=== PATIENT | male | born 1935 | race Caucasian/White ===

== ENCOUNTER 2016-07-20 09:33 | Emergency (ER) | payer MEDICARE, BC ==
[2016-07-20] MEDS ORDERED: Morphine 4 MG/ML Syringe IVPUSH ONE ×2 (10:08→11:14)
[2016-07-20] MEDS ORDERED: Sodium Chloride 0.9% 10 ML Syringe FLUSH PRN (10:08)
[2016-07-20] MEDS ORDERED: Ondansetron 4 MG/2 ML SDV IVPUSH ONE (10:12)
--- NOTE | 2016-07-20 10:12 | EDM.PDOC ---
ED HPI GENERAL MEDICAL PROBLEM - General Chief Complaint: Abdominal Pain Stated Complaint: DIDN'T FEEL WELL Time Seen by Provider: 07/20/16 09:46 Source of Information: Reports: Patient, EMS, Old Records History Limitations: Reports: No Limitations - History of Present Illness INITIAL COMMENTS - FREE TEXT/NARRATIVE: Patient presented to the emergency room complaining of severe abdominal pain. Patient called the ambulance and requested transport to the hospital as she was not feeling well. The patient's abdomen is soft and nontender to palpation but he says the pain is deep inside. The patient now is requesting pain medication and is attempting to vomit. Onset: Today Onset Date: 07/20/16 Onset Time: 10:11 Duration: Hour(s):, Constant Location: Reports: Abdomen Quality: Reports: Ache Severity: Moderate Improves with: Reports: None Worsens with: Reports: None Associated Symptoms: Reports: Nausea/Vomiting Treatments CONSULTING HR PROFESSIONAL: Reports: Other Medication(s) Lower Abdomen Pain Score (Numeric/FACES): 9 - Related Data Allergies Allergy/AdvReac Type Severity Reaction Status Date / Time No Known Allergies Allergy Verified 07/20/16 09:39 Home Meds: Home Meds Diclofenac Sodium [Voltaren] 75 mg PO BID 10/15/13 [History] Furosemide [Furosemide] 10 mg PO DAILY 10/15/13 [History] Gabapentin [Gabapentin] 800 mg PO BID 10/15/13 [History] Gluc 2KCl/Chondr/Juan R Hy/Hy Ac [Glucosamine & Chondroitin Cap] 1 tab PO BID [History] Simvastatin [Zocor] 40 mg PO BEDTIME 10/15/13 [History] Aspirin [Adult Low Dose Aspirin EC] 81 mg PO DAILY 01/05/16 [History] Magnesium Oxide [Magnesium] 400 mg PO BID 01/05/16 [History] Melatonin 10 mg PO BEDTIME 01/05/16 [History] Multivitamin [Multivitamins] 1 tab PO DAILY 01/05/16 [History] Tamsulosin HCl [Flomax] 0.4 mg PO DAILY 01/05/16 [History] Zinc 50 mg PO DAILY 01/05/16 [History] traZODone HCl [Trazodone HCl] 50 mg PO BEDTIME 01/05/16 [History] Pantoprazole [Protonix] 40 mg PO BIDAC 04/17/16 [History] Past Medical History HEENT History: Reports: Cataract, Hard of Hearing, Impaired Vision Cardiovascular History: Reports: Heart Failure, High Cholesterol, Hypertension Respiratory History: Reports: SOB Other Respiratory History: SOB with exertion Genitourinary History: Reports: BPH Musculoskeletal History: Reports: Back Pain, Chronic, Osteoarthritis, Other ( See Below) Other Musculoskeletal History: spinal stnosis Neurological History: Reports: Other (See Below) Other Neuro History: hereditary and idiopathic neuropathy - Past Surgical History HEENT Surgical History: Reports: Cataract Surgery GI Surgical History: Reports: Other (See Below) Other GI Surgeries/Procedures: spleenectomy Neurological Surgical History: Reports: Lumbar Spine Other Neurological Surgeries/Procedures: 1993 & 2016 Musculoskeletal Surgical History: Reports: Knee Replacement Social & Family History - Tobacco Use Smoking Status *Q: Never Smoker Second Hand Smoke Exposure: No - Caffeine Use Caffeine Use: Reports: None - Alcohol Use Days Per Week of Alcohol Use: 0 - Recreational Drug Use Recreational Drug Use: No ED ROS GENERAL - Review of Systems Review Of Systems: See Below Constitutional: Reports: No Symptoms HEENT: Reports: No Symptoms Respiratory: Reports: No Symptoms Cardiovascular: Reports: No Symptoms Endocrine: Reports: Fatigue GI/Abdominal: Reports: Abdominal Pain, Nausea. Denies: Black Stool, Bloody Stool, Vomiting : Reports: No Symptoms Musculoskeletal: Reports: Back Pain, Joint Pain, Muscle Pain Skin: Reports: No Symptoms Neurological: Reports: No Symptoms Psychiatric: Reports: No Symptoms Hematologic/Lymphatic: Reports: No Symptoms Immunologic: Reports: No Symptoms ED EXAM, GI/ABD - Physical Exam Exam: See Below Exam Limited By: No Limitations General Appearance: Alert, WD/WN, Moderate Distress Eyes: Bilateral: Normal Appearance Ears: Normal External Exam, Hearing Grossly Normal Nose: Normal Inspection Throat/Mouth: Normal Inspection, Normal Lips, Normal Voice Head: Atraumatic, Normocephalic Neck: Normal Inspection Respiratory/Chest: No Respiratory Distress Cardiovascular: Normal Peripheral Pulses GI/Abdominal: Normal Bowel Sounds, Soft, No Organomegaly, No Distention, Tenderness, Other (Scar from splenectomy). No: Distention (Male) Exam: No Hernia Back Exam: Decreased Range of Motion Extremities: Normal Inspection Neurological: Alert, Oriented, Normal Cognition Psychiatric: Normal Affect, Normal Mood Skin Exam: Warm, Dry, Intact Course - Vital Signs Last Recorded V/S: Last Vital Signs Temp 98.4 F 07/20/16 09:38 Pulse 56 L 07/20/16 11:51 Resp 16 07/20/16 11:51 BP 134/71 07/20/16 11:51 Pulse Ox 95 07/20/16 11:51 - Orders/Labs/Meds Orders: Active Orders 24 hr Category Date Time Status EKG Documentation Completion [RC] ASDIRECTED Care 07/20/16 13:36 Ordered Peripheral IV Care [RC] . DIRECTED Care 07/20/16 10:08 Active Abdomen Pelvis wo Cont [CT] Stat Exams 07/20/16 11:14 Taken UA W/MICROSCOPIC [URIN] Stat Lab 07/20/16 10:07 Uncollected Sodium Chloride 0.9% [Normal Saline] 1,000 ml Med 07/20/16 10:15 Active IV ASDIRECTED Sodium Chloride 0.9% [Saline Flush] Med 07/20/16 10:08 Active 10 ml FLUSH ASDIRECTED PRN Peripheral IV Insertion Adult [OM.PC] Stat Oth 07/20/16 10:07 Ordered EKG 12 Lead [EK] Routine Ther 07/20/16 13:36 Ordered Medication Orders Sodium Chloride (Normal Saline) 1,000 mls @ 125 mls/hr IV ASDIRECTED RONN Last Admin: 07/20/16 10:17 Dose: 125 mls/hr Sodium Chloride (Saline Flush) 10 ml FLUSH ASDIRECTED PRN PRN Reason: Keep Vein Open Labs: Laboratory Tests 07/20/16 07/20/16 07/20/16 Range/Units 10:17 10:17 10:17 WBC 13.8 H (4.5-11.0) K/uL RBC 4.22 L (4.30-5.90) M/uL Hgb 9.7 L D (12.0-15.0) g/dL Hct 31.1 L (40.0-54.0) % MCV 74 L (80-98) fL MCH 23 L (27-31) pg MCHC 31 L (32-36) % Plt Count 447 H (150-400) K/uL Neut % (Auto) 88 H (36-66) % Lymph % (Auto) 5 L (24-44) % Cross % (Auto) 7 H (2-6) % Eos % (Auto) 0 L (2-4) % Baso % (Auto) 0 (0-1) % ESR 23 H (0-20) mm/hr Sodium 141 (140-148) mmol/L Potassium 4.2 (3.6-5.2) mmol/L Chloride 103 (100-108) mmol/L Carbon Dioxide 27 (21-32) mmol/L Anion Gap 10.7 (5.0-14.0) mmol/L BUN 24 H (7-18) mg/dL Creatinine 1.6 H (0.8-1.3) mg/dL Est Cr Clr Drug Dosing 36.21 mL/min Estimated GFR (MDRD) 42 L (>60) Glucose 137 H (74-106) mg/dL Lactic Acid (0.4-2.0) mmol/L Calcium 8.3 L (8.5-10.1) mg/dL Total Bilirubin 0.6 (0.2-1.0) mg/dL AST 18 (15-37) U/L ALT 17 (12-78) U/L Alkaline Phosphatase 62 (46-116) U/L C-Reactive Protein (0.0-0.3) mg/dL Total Protein 7.6 (6.4-8.2) g/dL Albumin 3.3 L (3.4-5.0) g/dL Globulin 4.3 H (2.3-3.5) g/dL Albumin/Globulin Ratio 0.8 L (1.2-2.2) 07/20/16 07/20/16 Range/Units 10:17 10:17 WBC (4.5-11.0) K/uL RBC (4.30-5.90) M/uL Hgb (12.0-15.0) g/dL Hct (40.0-54.0) % MCV (80-98) fL MCH (27-31) pg MCHC (32-36) % Plt Count (150-400) K/uL Neut % (Auto) (36-66) % Lymph % (Auto) (24-44) % Cross % (Auto) (2-6) % Eos % (Auto) (2-4) % Baso % (Auto) (0-1) % ESR (0-20) mm/hr Sodium (140-148) mmol/L Potassium (3.6-5.2) mmol/L Chloride (100-108) mmol/L Carbon Dioxide (21-32) mmol/L Anion Gap (5.0-14.0) mmol/L BUN (7-18) mg/dL Creatinine (0.8-1.3) mg/dL Est Cr Clr Drug Dosing mL/min Estimated GFR (MDRD) (>60) Glucose (74-106) mg/dL Lactic Acid 1.1 (0.4-2.0) mmol/L Calcium (8.5-10.1) mg/dL Total Bilirubin (0.2-1.0) mg/dL AST (15-37) U/L ALT (12-78) U/L Alkaline Phosphatase (46-116) U/L C-Reactive Protein 0.18 (0.0-0.3) mg/dL Total Protein (6.4-8.2) g/dL Albumin (3.4-5.0) g/dL Globulin (2.3-3.5) g/dL Albumin/Globulin Ratio (1.2-2.2) Meds: Medications Generic Name Dose Route Start Last Admin Trade Name Freq PRN Reason Stop Dose Admin Sodium Chloride 1,000 mls @ 125 mls/hr 07/20/16 10:15 07/20/16 10:17 Normal Saline IV 125 mls/hr ASDIRECTED RONN Administration Sodium Chloride 10 ml 07/20/16 10:08 Saline Flush FLUSH ASDIRECTED PRN Keep Vein Open Discontinued Medications Generic Name Dose Route Start Last Admin Trade Name Freq PRN Reason Stop Dose Admin Morphine Sulfate 4 mg 07/20/16 10:08 07/20/16 10:20 Morphine IVPUSH 07/20/16 10:09 4 mg ONETIME ONE Administration Morphine Sulfate 4 mg 07/20/16 11:14 07/20/16 11:27 Morphine IVPUSH 07/20/16 11:15 4 mg ONETIME ONE Administration Ondansetron HCl 4 mg 07/20/16 10:12 07/20/16 10:18 Zofran IVPUSH 07/20/16 10:13 4 mg ONETIME ONE Administration - Radiology Interpretation Free Text/Narrative:: Final Report Patient: TOBI ENG Facility: [facility] Site . Site : 1935 Study: CT Abdomen/Pelvis -07/20/2016 11:56:17 AM Ordering Physician: Tej Tabor [phone] Final Report: HISTORY: Abdominal pain, elevated creatinine. Technique: CT abdomen and pelvis without contrast. Comparison: None. Findings: Abdomen: A few subcentimeter low-attenuation lesions in the liver. Gallbladder is distended but otherwise unremarkable. No radiopaque gallstones. Post splenectomy. Few splenules in the left upper quadrant. Pancreas is unremarkable. Adrenal glands are unremarkable. No renal or ureteral calculi. Bilateral renal hypodensities, likely cysts. Distended fluid-filled distal small bowel to the terminal ileum. The cecum and ascending colon are likewise distended and fluid-filled to the level of a approximately 3 cm segment of in circumferential wall thickening/annular mass ( axial series 3 images 55-59). Colon is mostly decompressed distal to this point. Colonic diverticulosis. Few surgical clips in the right lower quadrant. Trace free fluid in the right paracolic gutter. No fluid collection. No free intraperitoneal gas. No lymphadenopathy. Atherosclerosis. No abdominal aortic aneurysm. Pelvis: Prostate is enlarged. No lymphadenopathy. Musculoskeletal: Generalized osteopenia. Degenerative changes in the spine. Bilateral sacroiliac joint degenerative changes. Pubic symphysis degenerative changes. Bilateral hip joint degenerative changes. Lower chest: Bibasilar atelectasis. Heart is enlarged. Coronary artery calcifications. Impression: 1. Approximately 3 cm segment circumferential wall thickening/annular mass in the ascending colon with distended, fluid-filled upstream ascending colon, cecum , and distal small bowel. Finding is suspicious for malignancy. Recommend correlation with colonoscopy. 2. Small amount of free fluid in the abdomen. No fluid collection or free intraperitoneal gas. 3. Distended but otherwise unremarkable gallbladder. 4. Post splenectomy. Communicated with Dr. Leander Burnham on 07/20/16 at 1245 hours. Please note that all CT scans at this facility use dose modulation, iterative reconstruction, and/or weight-based dosing when appropriate to reduce radiation dose to as low as reasonably achievable. Dictated by Joseph Schmitt MD @ Jul 20 2016 12:47PM (Electronic Signature) Top of Form 1 Bottom of Form 1 - Re-Assessments/Exams Free Text/Narrative Re-Assessment/Exam: 07/20/16 13:37 Patient has significant abdominal pain requesting pain management. Morphine was used IV. He also nausea and that was treated with Zofran. The CT scan report showed the abnormality in the ascending colon. Dr. Barnes was consulted. 07/20/16 13:38 Dr. Cesar Delcid is out of the home for the weekend Free Text/Narrative Re-Assessment/Exam: 07/20/16 13:43 Patient was seen by Dr. Barnes. Dr. Barnes's plan is to discharge the patient home with a 2 day bowel prep. Colonoscopy on Friday. The patient can return to the emergency room if there is unbearable symptomatology at home. Departure - Departure Time of Disposition: 13:44 Disposition: Home, Self-Care 01 Condition: fair Clinical Impression: Abdominal pain, Mass of colon - Discharge Information Forms: ED Department Discharge Additional Instructions: Dr. Barnes will do a colonoscopy on Friday. A 2 day bowel prep has been planned Patient is discharged home. Reevaluation is indicated if the pain becomes significant or other problems develop. - Problem List & Annotations (1) Abdominal pain SNOMED Code(s): 05436424 Code(s): R10.9 - UNSPECIFIED ABDOMINAL PAIN Status: Acute Priority: Medium Current Visit: Yes Qualifiers: Abdominal location: generalized Qualified Code(s): R10.84 - Generalized abdominal pain - Problem List Review Problem List Initiated/Reviewed/Updated: Yes - My Orders Last 24 Hours: My Active Orders 07/20/16 10:07 UA W/MICROSCOPIC [URIN] Stat Peripheral IV Insertion Adult [OM.PC] Stat 07/20/16 10:08 Peripheral IV Care [RC] . DIRECTED Sodium Chloride 0.9% [Saline Flush] 10 ml FLUSH ASDIRECTED PRN 07/20/16 10:15 Sodium Chloride 0.9% [Normal Saline] 1,000 ml IV ASDIRECTED 07/20/16 11:14 Abdomen Pelvis wo Cont [CT] Stat 07/20/16 13:36 EKG Documentation Completion [RC] ASDIRECTED EKG 12 Lead [EK] Routine - Assessment/Plan Last 24 Hours: My Active Orders 07/20/16 10:07 UA W/MICROSCOPIC [URIN] Stat Peripheral IV Insertion Adult [OM.PC] Stat 07/20/16 10:08 Peripheral IV Care [RC] . DIRECTED Sodium Chloride 0.9% [Saline Flush] 10 ml FLUSH ASDIRECTED PRN 07/20/16 10:15 Sodium Chloride 0.9% [Normal Saline] 1,000 ml IV ASDIRECTED 07/20/16 11:14 Abdomen Pelvis wo Cont [CT] Stat 07/20/16 13:36 EKG Documentation Completion [RC] ASDIRECTED EKG 12 Lead [EK] Routine
[2016-07-20] MEDS ORDERED: Sodium Chloride 0.9% 1,000 ML IV SCH (10:15)
[2016-07-20 13:51] VITALS: BP 105/38
--- NOTE | 2016-07-23 08:20 | CONS ---
DATE OF SERVICE: 07/20/2016 REFERRING PHYSICIAN: CONSULTING PHYSICIAN: Wilfred Barnes MD REASON FOR CONSULTATION: Abdominal pain. HISTORY OF PRESENT ILLNESS: This 81-year-old male with an acute on chronic history of abdominal pain. This is a new problem for him with respect to he was presented to the emergency room, however discussion with the patient this has been present for quite some time. The patient has not had a recent colonoscopy. He has no GI bleeding. He is still having bowel movements in fact, a large one in the last couple of hours. PAST MEDICAL HISTORY: 1. Multiple back surgeries. 2. Back pain. PAST SURGICAL HISTORY: 1. Back pain or back surgeries as described above. 2. 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 SOCIAL HISTORY: He is not a smoker. He does live at home by himself. FAMILY HISTORY: Noncontributory. REVIEW OF SYSTEMS: GENERAL: The patient is resting, is appropriate for his condition. HEENT: No symptoms. CARDIOVASCULAR: No history of myocardial infarction. RESPIRATORY: No shortness of breath. The patient states he can walk without difficulty. NEUROLOGIC: No symptoms. PSYCHIATRY: No symptoms. The remainder review of systems was reviewed and is negative. PHYSICAL EXAMINATION: VITAL SIGNS: Stable. HEENT: Pupils are equal. NECK: Supple. LUNGS: Clear to auscultation bilaterally. ABDOMEN: Bowel sounds positive. No pain with palpation. No rebound. No guarding. No distention. IMAGING: I did review the CT scan, which suggests a possible malignancy. LABORATORY RESULTS: Currently slightly elevated, and his hemoglobin is 9.7 which is probably chronic. ASSESSMENT AND PLAN: The patient is requiring a colonoscopy. We've placed the patient on prep and performed the next step in 24 to 48 hours. We discussed risks, benefits, alternatives, and limitations of the colonoscopy, also the fact discussed that he is 81 and he is at a higher cardiovascular risk. However, he has good physical health with respect to his cardiovascular status and low on risk factor for his age. We also discussed the risks of colonoscopy and not having including infection, bleeding, and perforation. The patient understands these risks and wishes to proceed. He was scheduled for the aforementioned colonoscopy. Wilfred Barnes MD /[id number] CC: Leander Burnham MD, [place], [place]
== END 2016-07-20 14:10 | disposition home or self-care (01) ==
LOC: JP.ED 09:34
DX: K63.9 Disease of intestine, unspecified (principal); R10.30 Lower abdominal pain, unspecified; I50.9 Heart failure, unspecified; I10 Essential (primary) hypertension; E78.00 Pure hypercholesterolemia, unspecified; Z98.49 Cataract extraction status, unspecified eye; Z90.81 Acquired absence of spleen; Z96.659 Presence of unspecified artificial knee joint; Z79.82 Long term (current) use of aspirin; Z79.899 Other long term (current) drug therapy
CPT/HCPCS: 36415; 74176; 80053; 83605; 85025; 85651; 86140; 93005; 96361; 96374; 96375; 96376; 99285; J2270; J2405; J7040; 93010

== ENCOUNTER 2016-07-22 07:03 | Day surgery (SDC) | payer MEDICARE, BC | END 2016-07-22 07:50 | disposition home or self-care (01) | LOC: JP.SDS 07:03 | PROVIDERS: ATTEND Surgery | DX: Z12.11 Encounter for screening for malignant neoplasm of colon (principal); Z53.8 Procedure and treatment not carried out for other reasons ==

== ENCOUNTER 2016-07-25 02:52 | Emergency (ER) | payer MEDICARE, BC ==
[2016-07-25] MEDS ORDERED: HYDROmorphone 1 MG/ML Syringe IVPUSH ONE (03:32)
[2016-07-25] MEDS ORDERED: Ondansetron 4 MG/2 ML SDV IVPUSH ONE (03:32)
[2016-07-25] MEDS ORDERED: Sodium Chloride 0.9% 1,000 ML IV SCH (03:45)
[2016-07-25 06:29] VITALS: BP 114/67
--- NOTE | 2016-07-25 06:38 | EDM.PDOC ---
ED HPI GENERAL MEDICAL PROBLEM - General Chief Complaint: Abdominal Pain Stated Complaint: STOMACH PAINS/VOMITING Time Seen by Provider: 07/25/16 03:31 Source of Information: Reports: Patient History Limitations: Reports: No Limitations - History of Present Illness INITIAL COMMENTS - FREE TEXT/NARRATIVE: History of present illness: [This 81-year-old male scheduled for a colonoscopy next week as a result of the CT scan that is showing a lesion in his ascending colon is suspicious for CA. 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 He states he has one but it doesn't work well for him. 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 He's had no fevers or chills cough cold systems chest pain or shortness of breath. He's had one episode of vomiting prior to coming in.] Review of systems: As per history of present illness and below otherwise all systems reviewed and negative. Past medical history: As per history of present illness and as reviewed below otherwise noncontributory. Surgical history: As per history of present illness and as reviewed below otherwise noncontributory. Social history: No reported history of drug or alcohol abuse. Family history: As per history of present illness and as reviewed below otherwise noncontributory. Physical exam: HEENT: Atraumatic, normocephalic, pupils reactive, negative for conjunctival pallor or scleral icterus, mucous membranes moist, throat clear, neck supple, nontender, trachea midline. Lungs: Clear to auscultation Heart: S1S2, regular Abdomen: Soft, nondistended, with minor tenderness to palpation across the lower abdomen Extremities: Atraumatic, negative for cords or calf pain. Neurovascular unremarkable. Neuro: Awake, alert, oriented. Cranial nerves II through XII unremarkable. Cerebellum unremarkable. Motor and sensory unremarkable throughout. Exam nonfocal. Diagnostics: [CBC showing oh elevated white count of 14,000 CMP was also done and had some minor abnormalities.] Therapeutics: [All of the ER he received IV fluids and Dilaudid 1 mg IV as well as Zofran. He was observed for over 3 hours and felt much better and was willing to try to go home. We don't have a bed available in the hospital so I think this would be a reasonable thing to try. We will provide him with antibiotics due to his elevated white count in the form of Cipro 500 mg twice a day. And also [place] 5/ 325 one by mouth every 4 hours when necessary pain #20.] Impression: [Abdominal pain and nausea] Plan: [He is strongly encouraged to return to the ER if this is not working out and if he does I would recommend consideration of admission.] Definitive disposition and diagnosis as appropriate pending reevaluation and review of above. Abdominal Pain Score (Numeric/FACES): 10 - Related Data Allergies Allergy/AdvReac Type Severity Reaction Status Date / Time No Known Allergies Allergy Verified 07/20/16 09:39 Home Meds: Home Meds Diclofenac Sodium [Voltaren] 75 mg PO BID 10/15/13 [History] Furosemide [Furosemide] 10 mg PO DAILY 10/15/13 [History] Gabapentin [Gabapentin] 800 mg PO BID 10/15/13 [History] Gluc 2KCl/Chondr/Juan R Hy/Hy Ac [Glucosamine & Chondroitin Cap] 1 tab PO BID [History] Simvastatin [Zocor] 40 mg PO BEDTIME 10/15/13 [History] Aspirin [Adult Low Dose Aspirin EC] 81 mg PO DAILY 01/05/16 [History] Magnesium Oxide [Magnesium] 400 mg PO BID 01/05/16 [History] Melatonin 10 mg PO BEDTIME 01/05/16 [History] Multivitamin [Multivitamins] 1 tab PO DAILY 01/05/16 [History] Tamsulosin HCl [Flomax] 0.4 mg PO DAILY 01/05/16 [History] Zinc 50 mg PO DAILY 01/05/16 [History] traZODone HCl [Trazodone HCl] 50 mg PO BEDTIME 01/05/16 [History] Pantoprazole [Protonix] 40 mg PO BIDAC 04/17/16 [History] Past Medical History HEENT History: Reports: Cataract, Hard of Hearing, Impaired Vision Cardiovascular History: Reports: Heart Failure, High Cholesterol, Hypertension Respiratory History: Reports: SOB Other Respiratory History: SOB with exertion Genitourinary History: Reports: BPH Musculoskeletal History: Reports: Back Pain, Chronic, Osteoarthritis, Other ( See Below) Other Musculoskeletal History: spinal stnosis Neurological History: Reports: Other (See Below) Other Neuro History: hereditary and idiopathic neuropathy - Past Surgical History HEENT Surgical History: Reports: Cataract Surgery GI Surgical History: Reports: Other (See Below) Other GI Surgeries/Procedures: spleenectomy Neurological Surgical History: Reports: Lumbar Spine Other Neurological Surgeries/Procedures: 1994 & 2016 Musculoskeletal Surgical History: Reports: Knee Replacement Social & Family History - Tobacco Use Smoking Status *Q: Never Smoker Second Hand Smoke Exposure: No - Caffeine Use Caffeine Use: Reports: Coffee - Alcohol Use Days Per Week of Alcohol Use: 0 - Recreational Drug Use Recreational Drug Use: No ED ROS GENERAL - Review of Systems Review Of Systems: ROS reveals no pertinent complaints other than HPI. ED EXAM, GI/ABD - Physical Exam Exam: See Below Course - Vital Signs Last Recorded V/S: Last Vital Signs Temp 35.3 C 07/25/16 03:05 Pulse 58 L 07/25/16 06:29 Resp 16 07/25/16 06:29 BP 114/67 07/25/16 06:29 Pulse Ox 94 L 07/25/16 06:29 - Orders/Labs/Meds Orders: Active Orders 24 hr Category Date Time Status Sodium Chloride 0.9% [Normal Saline] 1,000 ml Med 07/25/16 03:45 Active IV ASDIRECTED Medication Orders Sodium Chloride (Normal Saline) 1,000 mls @ 150 mls/hr IV ASDIRECTED RONN Last Admin: 07/25/16 03:46 Dose: 150 mls/hr Labs: Laboratory Tests 07/25/16 07/25/16 Range/Units 03:46 03:46 WBC 14.8 H (4.5-11.0) K/uL RBC 4.64 (4.30-5.90) M/uL Hgb 10.6 L (12.0-15.0) g/dL Hct 33.5 L (40.0-54.0) % MCV 72 L (80-98) fL MCH 23 L (27-31) pg MCHC 32 (32-36) % Plt Count 470 H (150-400) K/uL Neut % (Auto) 85 H (36-66) % Lymph % (Auto) 5 L (24-44) % [place] % (Auto) 9 H (2-6) % Eos % (Auto) 1 L (2-4) % Baso % (Auto) 0 (0-1) % Sodium 141 (140-148) mmol/L Potassium 3.8 (3.6-5.2) mmol/L Chloride 102 (100-108) mmol/L Carbon Dioxide 27 (21-32) mmol/L Anion Gap 15.8 H (5.0-14.0) mmol/L BUN 23 H (7-18) mg/dL Creatinine 1.5 H (0.8-1.3) mg/dL Est Cr Clr Drug Dosing TNP Estimated GFR (MDRD) 45 L (>60) Glucose 141 H (74-106) mg/dL Calcium 8.9 (8.5-10.1) mg/dL Total Bilirubin 0.7 (0.2-1.0) mg/dL AST 26 (15-37) U/L ALT 21 (12-78) U/L Alkaline Phosphatase 64 (46-116) U/L Total Protein 8.1 (6.4-8.2) g/dL Albumin 3.6 (3.4-5.0) g/dL Globulin 4.5 H (2.3-3.5) g/dL Albumin/Globulin Ratio 0.8 L (1.2-2.2) Lipase 393 (73-393) U/L Meds: Medications Generic Name Dose Route Start Last Admin Trade Name Freq PRN Reason Stop Dose Admin Sodium Chloride 1,000 mls @ 150 mls/hr 07/25/16 03:45 07/25/16 03:46 Normal Saline IV 150 mls/hr ASDIRECTED RONN Administration Discontinued Medications Generic Name Dose Route Start Last Admin Trade Name Freq PRN Reason Stop Dose Admin Hydromorphone HCl 1 mg 07/25/16 03:32 07/25/16 03:56 Dilaudid IVPUSH 07/25/16 03:33 1 mg ONETIME ONE Administration Ondansetron HCl 4 mg 07/25/16 03:32 07/25/16 03:55 Zofran IVPUSH 07/25/16 03:33 4 mg ONETIME ONE Administration Departure - Departure Time of Disposition: 06:37 Disposition: Home, Self-Care 01 Condition: good Clinical Impression: Abdominal pain Qualifiers: Abdominal location: lower abdomen, unspecified Qualified Code(s): R10.30 - Lower abdominal pain, unspecified - Discharge Information Forms: ED Department Discharge Additional Instructions: I certainly hope that this works out for you. If we are providing you with some antibiotics because her white count was slightly elevated. Please be sure to return to the ER if things are not working out for you and you were experiencing pain that is not controlled with the antibiotics or nausea and vomiting or weakness or any other concerns. If you do return it could be that we would need to admit her to the hospital. - My Orders Last 24 Hours: My Active Orders 07/25/16 03:45 Sodium Chloride 0.9% [Normal Saline] 1,000 ml IV ASDIRECTED - Assessment/Plan Last 24 Hours: My Active Orders 07/25/16 03:45 Sodium Chloride 0.9% [Normal Saline] 1,000 ml IV ASDIRECTED
== END 2016-07-25 07:04 | disposition home or self-care (01) ==
LOC: JP.ED 02:52
DX: R10.30 Lower abdominal pain, unspecified (principal); R11.0 Nausea; I11.0 Hypertensive heart disease with heart failure; E78.00 Pure hypercholesterolemia, unspecified; G89.29 Other chronic pain; M54.9 Dorsalgia, unspecified; M19.90 Unspecified osteoarthritis, unspecified site; Z98.49 Cataract extraction status, unspecified eye; Z90.81 Acquired absence of spleen; Z96.659 Presence of unspecified artificial knee joint; Z98.890 Other specified postprocedural states; Z79.82 Long term (current) use of aspirin; Z79.899 Other long term (current) drug therapy
CPT/HCPCS: 36415; 80053; 83690; 85025; 96361; 96374; 96375; 99284; J1170; J2405; J7040

== ENCOUNTER 2016-07-30 02:50 | Inpatient (IN) | payer MEDICARE, BC ==
[2016-07-30] MEDS ORDERED: Lactated Ringers 1,000 ML IV ONE (03:47)
[2016-07-30] MEDS ORDERED: Sodium Chloride 0.9% 10 ML Syringe FLUSH PRN ×2 (03:48→08:10)
[2016-07-30] MEDS ORDERED: fentaNYL 100 MCG/2 ML SDV IVPUSH ONE ×2 (03:48→08:38)
[2016-07-30] MEDS ORDERED: LORazepam 2 MG/ML MDV IVPUSH ONE (03:48)
--- NOTE | 2016-07-30 03:58 | EDM.PDOC ---
ED HPI GENERAL MEDICAL PROBLEM - General Chief Complaint: Gastrointestinal Problem Stated Complaint: WEAKNESS Time Seen by Provider: 07/30/16 03:29 Source of Information: Reports: Patient, Old Records, RN Notes Reviewed History Limitations: Reports: No Limitations - History of Present Illness INITIAL COMMENTS - FREE TEXT/NARRATIVE: 81-year-old gentleman presents to emergency department today complaint abdominal pain, he has been in the emergency department 2 times in the last 10 days for the same complaint. Initial workup on presentation shows a thickened area the ascending colon concern for malignancy, he was set up for colonoscopy unfortunately could not complete the prep with the MiraLAX and Gatorade and was switched to the magnesium citrate prep. He states the pain medication provided for him does not help and that he has not been able to sleep and he is very anxious. This is a similar complaint to last visit Treatments END MAKER: Reports: Other (see below) Other Treatments END MAKER: Mag Citrate bowel prep - Related Data Allergies Allergy/AdvReac Type Severity Reaction Status Date / Time No Known Allergies Allergy Verified 07/29/16 11:36 Home Meds: Home Meds Diclofenac Sodium [Voltaren] 75 mg PO BID 10/15/13 [History] Furosemide [Furosemide] 10 mg PO DAILY 10/15/13 [History] Gabapentin [Gabapentin] 800 mg PO BID 10/15/13 [History] Gluc 2KCl/Chondr/Juan R Hy/Hy Ac [Glucosamine & Chondroitin Cap] 1 tab PO BID [History] Simvastatin [Zocor] 40 mg PO BEDTIME 10/15/13 [History] Aspirin [Adult Low Dose Aspirin EC] 81 mg PO DAILY 01/05/16 [History] Magnesium Oxide [Magnesium] 400 mg PO BID 01/05/16 [History] Melatonin 10 mg PO BEDTIME 01/05/16 [History] Multivitamin [Multivitamins] 1 tab PO DAILY 01/05/16 [History] Tamsulosin HCl [Flomax] 0.4 mg PO DAILY 01/05/16 [History] Zinc 50 mg PO DAILY 01/05/16 [History] traZODone HCl [Trazodone HCl] 50 mg PO BEDTIME 01/05/16 [History] Pantoprazole [Protonix] 40 mg PO BIDAC 04/17/16 [History] Past Medical History HEENT History: Reports: Cataract, Hard of Hearing, Impaired Vision Cardiovascular History: Reports: Heart Failure, High Cholesterol, Hypertension Respiratory History: Reports: SOB Other Respiratory History: SOB with exertion Gastrointestinal History: Reports: Other (See Below) Other Gastrointestinal History: Recent CT of abd/pelvis on 07/20/16 showed lesion in accending colon Genitourinary History: Reports: BPH Musculoskeletal History: Reports: Back Pain, Chronic, Osteoarthritis, Other ( See Below) Other Musculoskeletal History: spinal stnosis Neurological History: Reports: Other (See Below) Other Neuro History: hereditary and idiopathic neuropathy - Infectious Disease History Infectious Disease History: Reports: Chicken Pox, Measles - Past Surgical History HEENT Surgical History: Reports: Cataract Surgery GI Surgical History: Reports: Other (See Below) Other GI Surgeries/Procedures: spleenectomy Neurological Surgical History: Reports: Lumbar Spine Other Neurological Surgeries/Procedures: 1993 & 2015 Musculoskeletal Surgical History: Reports: Knee Replacement Social & Family History - Tobacco Use Smoking Status *Q: Never Smoker Second Hand Smoke Exposure: No - Caffeine Use Caffeine Use: Reports: Coffee - Alcohol Use Days Per Week of Alcohol Use: 0 - Recreational Drug Use Recreational Drug Use: No ED ROS GENERAL - Review of Systems Review Of Systems: See Below Constitutional: Reports: No Symptoms HEENT: Reports: No Symptoms Respiratory: Reports: No Symptoms Cardiovascular: Reports: No Symptoms GI/Abdominal: Reports: Abdominal Pain. Denies: Constipation, Diarrhea, Nausea, Vomiting : Reports: No Symptoms Musculoskeletal: Reports: No Symptoms ED EXAM, GI/ABD - Physical Exam Exam: See Below Exam Limited By: No Limitations General Appearance: Alert, WD/WN, No Apparent Distress Respiratory/Chest: No Respiratory Distress, Lungs Clear, Normal Breath Sounds, No Accessory Muscle Use Cardiovascular: Regular Rate, Rhythm, No Murmur GI/Abdominal: Soft, Non-Tender, No Organomegaly, No Distention Psychiatric: Anxious Course - Vital Signs Last Recorded V/S: Last Vital Signs Temp 97.6 F 07/30/16 02:59 Pulse 89 07/30/16 02:59 Resp 16 07/30/16 02:59 BP 129/81 07/30/16 02:59 Pulse Ox 98 07/30/16 02:59 - Orders/Labs/Meds Orders: Active Orders 24 hr Category Date Time Status Peripheral IV Care [RC] . DIRECTED Care 07/30/16 03:48 Active Sodium Chloride 0.9% [Saline Flush] Med 07/30/16 03:48 Active 10 ml FLUSH ASDIRECTED PRN Peripheral IV Insertion Adult [OM.PC] Urgent Oth 07/30/16 03:47 Ordered Medication Orders Sodium Chloride (Saline Flush) 10 ml FLUSH ASDIRECTED PRN PRN Reason: Keep Vein Open Last Admin: 07/30/16 04:00 Dose: 10 ml Labs: Laboratory Tests 07/30/16 07/30/16 Range/Units 03:47 03:47 WBC 9.1 (4.5-11.0) K/uL RBC 4.23 L (4.30-5.90) M/uL Hgb 9.6 L (12.0-15.0) g/dL Hct 30.6 L (40.0-54.0) % MCV 72 L (80-98) fL MCH 23 L (27-31) pg MCHC 31 L (32-36) % Plt Count 443 H (150-400) K/uL Neut % (Auto) 83 H (36-66) % Lymph % (Auto) 7 L (24-44) % [place] % (Auto) 9 H (2-6) % Eos % (Auto) 1 L (2-4) % Baso % (Auto) 0 (0-1) % Sodium 139 L (140-148) mmol/L Potassium 4.4 (3.6-5.2) mmol/L Chloride 101 (100-108) mmol/L Carbon Dioxide 20 L (21-32) mmol/L Anion Gap 22.4 H (5.0-14.0) mmol/L BUN 22 H (7-18) mg/dL Creatinine 1.5 H (0.8-1.3) mg/dL Est Cr Clr Drug Dosing 38.49 mL/min Estimated GFR (MDRD) 45 L (>60) Glucose 85 (74-106) mg/dL Calcium 8.7 (8.5-10.1) mg/dL Meds: Medications Generic Name Dose Route Start Last Admin Trade Name Freq PRN Reason Stop Dose Admin Sodium Chloride 10 ml 07/30/16 03:48 07/30/16 04:00 Saline Flush FLUSH 10 ml ASDIRECTED PRN Administration Keep Vein Open Discontinued Medications Generic Name Dose Route Start Last Admin Trade Name Freq PRN Reason Stop Dose Admin Fentanyl 50 mcg 07/30/16 03:48 07/30/16 04:07 Sublimaze IVPUSH 07/30/16 03:49 50 mcg ONETIME ONE Administration Lactated Ringer's 1,000 mls @ 999 mls/hr 07/30/16 03:47 07/30/16 04:04 Ringers, Lactated IV 07/30/16 04:47 999 mls/hr BOLUS ONE Administration Lorazepam 0.5 mg 07/30/16 03:48 07/30/16 04:12 Ativan IVPUSH 07/30/16 03:49 0.5 mg ONETIME ONE Administration Departure - Departure Time of Disposition: 06:16 Disposition: Home, Self-Care 01 Condition: good Clinical Impression: Mass of colon Abdominal pain Qualifiers: Abdominal location: generalized Qualified Code(s): R10.84 - Generalized abdominal pain - Discharge Information Forms: ED Department Discharge - My Orders Last 24 Hours: My Active Orders 07/30/16 03:47 Peripheral IV Insertion Adult [OM.PC] Urgent 07/30/16 03:48 Peripheral IV Care [RC] . DIRECTED Sodium Chloride 0.9% [Saline Flush] 10 ml FLUSH ASDIRECTED PRN - Assessment/Plan Last 24 Hours: My Active Orders 07/30/16 03:47 Peripheral IV Insertion Adult [OM.PC] Urgent 07/30/16 03:48 Peripheral IV Care [RC] . DIRECTED Sodium Chloride 0.9% [Saline Flush] 10 ml FLUSH ASDIRECTED PRN Plan: Assessment Acuity = acute Site and laterality = thickened area ascending colon suspicious for malignancy Etiology = unclear etiology Manifestations = anxiety, insomnia, abdominal pain Location of injury = home Lab values = hemoglobin low at 9.6 consistent microchromic anemia creatinine elevated at 1.5 consistent with chronic renal failure stage G IIIB Plan Called and discussed case with his primary care provider Dr. Delcid he agreed to, and evaluate the patient in the ED for admission plan is to finish the colonoscopy prep in the hospital then perform colonoscopy to better understand the etiology of the thickened area of the ascending colon Patient was in agreement with the plan all questions were answered. This note was dictated using [email or web address] voice recognition software please call with any questions.
--- NOTE | 2016-07-30 07:55 | PCM.HP ---
H&P History of Present Illness - General Date of Service: 07/30/16 Source of Information: Patient History Limitations: Reports: No Limitations - History of Present Illness Initial Comments - Free Text/Narative: 81-year-old gentleman who came to emergency department complaining of abdominal pain. He was in the ER twice in the last 2 weeks. He was found to have a probable lesion in the ascending colon by CT of the abdomen. He is unable to complete his prep at home as he had tried last week and was unable to complete the prep. He is unable to do the prep again and came in for abdomen pain and needs the prep completed for the colonoscopy tomorrow. He has been advised to have a colonoscopy in the past but would not make the arrangements. Onset of Symptoms: Reports: Gradual Duration of Symptoms: Reports: Week(s): Location: Reports: Abdomen Severity: Moderate Associated Symptoms: Reports: Weakness Lower Abdomen Pain Score (Numeric/FACES): 4 - Related Data Allergies/Adverse Reactions: Allergies Allergy/AdvReac Type Severity Reaction Status Date / Time No Known Allergies Allergy Verified 07/29/16 11:36 Home Medications: Home Meds Diclofenac Sodium [Voltaren] 75 mg PO BID 10/15/13 [History] Furosemide [Furosemide] 10 mg PO DAILY 10/15/13 [History] Gabapentin [Gabapentin] 800 mg PO BID 10/15/13 [History] Gluc 2KCl/Chondr/Juan R Hy/Hy Ac [Glucosamine & Chondroitin Cap] 1 tab PO BID [History] Simvastatin [Zocor] 40 mg PO BEDTIME 10/15/13 [History] Aspirin [Adult Low Dose Aspirin EC] 81 mg PO DAILY 01/05/16 [History] Magnesium Oxide [Magnesium] 400 mg PO BID 01/05/16 [History] Melatonin 10 mg PO BEDTIME 01/05/16 [History] Multivitamin [Multivitamins] 1 tab PO DAILY 01/05/16 [History] Tamsulosin HCl [Flomax] 0.4 mg PO DAILY 01/05/16 [History] Zinc 50 mg PO DAILY 01/05/16 [History] traZODone HCl [Trazodone HCl] 50 mg PO BEDTIME 01/05/16 [History] Pantoprazole [Protonix] 40 mg PO BIDAC 04/17/16 [History] Past Medical History HEENT History: Reports: Cataract, Hard of Hearing, Impaired Vision Cardiovascular History: Reports: Heart Failure, High Cholesterol, Hypertension Respiratory History: Reports: SOB Other Respiratory History: SOB with exertion Gastrointestinal History: Reports: Other (See Below) Other Gastrointestinal History: Recent CT of abd/pelvis on 07/20/16 showed lesion in accending colon Genitourinary History: Reports: BPH Musculoskeletal History: Reports: Back Pain, Chronic, Osteoarthritis, Other ( See Below) Other Musculoskeletal History: spinal stnosis Neurological History: Reports: Other (See Below) Other Neuro History: hereditary and idiopathic neuropathy - Infectious Disease History Infectious Disease History: Reports: Chicken Pox, Measles - Past Surgical History HEENT Surgical History: Reports: Cataract Surgery GI Surgical History: Reports: Other (See Below) Other GI Surgeries/Procedures: spleenectomy Neurological Surgical History: Reports: Lumbar Spine Other Neurological Surgeries/Procedures: 1993 & 2015 Musculoskeletal Surgical History: Reports: Knee Replacement Social & Family History - Tobacco Use Smoking Status *Q: Never Smoker Second Hand Smoke Exposure: No - Caffeine Use Caffeine Use: Reports: Coffee - Alcohol Use Days Per Week of Alcohol Use: 0 - Recreational Drug Use Recreational Drug Use: No H&P Review of Systems - Review of Systems: Review Of Systems: See Below General: Reports: Weakness, Decreased Appetite Pulmonary: Reports: No Symptoms Cardiovascular: Reports: No Symptoms Gastrointestinal: Reports: Abdominal Pain Genitourinary: Reports: No Symptoms Musculoskeletal: Reports: No Symptoms Skin: Reports: No Symptoms Psychiatric: Reports: No Symptoms Neurological: Reports: Dizziness, Weakness, Other Exam - Exam Exam: See Below - Vital Signs Vital Signs: Last Vital Signs Temp 97.6 F 07/30/16 02:59 Pulse 89 07/30/16 02:59 Resp 16 07/30/16 02:59 BP 129/81 07/30/16 02:59 Pulse Ox 98 07/30/16 02:59 Weight: 204 lb 15.984 oz - Exam General: Alert, Oriented, 4 HEENT: PERRLA, Hearing Intact, Mucosa Moist & [place], Nares Patent, Normal Nasal Septum, Posterior Pharynx Clear, Conjunctiva Clear, EOMI, EACs Clear, TMs Clear Neck: Supple, Trachea Midline, 2 Lungs: Clear to Auscultation, Normal Respiratory Effort Cardiovascular: Regular Rate, Regular Rhythm Abdomen: Tenderness Back Exam: Normal Inspection, Full Range of Motion, NT Extremities: 3, Normal Inspection, 10 Peripheral Pulses: 1+: Radial (L), Radial (R) Skin: Warm, Dry, Intact Neuro Extensive - Mental Status: Alert, Oriented x3, Normal Mood/Affect, Normal Cognition Neuro Extensive - Motor, Sensory, Reflexes: CN II-XII Intact, Normal Gait, Normal Reflexes DTR: 1+: Patella (L), Patella (R) Psychiatric: Alert, Normal Affect, Normal Mood - Patient Data Lab Results last 24 hrs: Laboratory Results - last 24 hr 07/30/16 07/30/16 Range/Units 03:47 03:47 WBC 9.1 (4.5-11.0) K/uL RBC 4.23 L (4.30-5.90) M/uL Hgb 9.6 L (12.0-15.0) g/dL Hct 30.6 L (40.0-54.0) % MCV 72 L (80-98) fL MCH 23 L (27-31) pg MCHC 31 L (32-36) % Plt Count 443 H (150-400) K/uL Neut % (Auto) 83 H (36-66) % Lymph % (Auto) 7 L (24-44) % Schley % (Auto) 9 H (2-6) % Eos % (Auto) 1 L (2-4) % Baso % (Auto) 0 (0-1) % Sodium 139 L (140-148) mmol/L Potassium 4.4 (3.6-5.2) mmol/L Chloride 101 (100-108) mmol/L Carbon Dioxide 20 L (21-32) mmol/L Anion Gap 22.4 H (5.0-14.0) mmol/L BUN 22 H (7-18) mg/dL Creatinine 1.5 H (0.8-1.3) mg/dL Est Cr Clr Drug Dosing 38.49 mL/min Estimated GFR (MDRD) 45 L (>60) Glucose 85 (74-106) mg/dL Calcium 8.7 (8.5-10.1) mg/dL Result Diagrams: 08/01/16 05:00 08/01/16 05:00 *Q Meaningful Use (ADM) - VTE *Q VTE Criteria *Q: - Stroke *Q Stroke Criteria *Q: - AMI *Q AMI Criteria *Q: Problem List Initiated/Reviewed/Updated: Yes Orders Last 24hrs: Active Orders 24 hr Category Date Time Status Peripheral IV Care [RC] . DIRECTED Care 07/30/16 03:48 Active Sodium Chloride 0.9% [Saline Flush] Med 07/30/16 03:48 Active 10 ml FLUSH ASDIRECTED PRN Peripheral IV Insertion Adult [OM.PC] Urgent Oth 07/30/16 03:47 Ordered Medication Orders Sodium Chloride (Saline Flush) 10 ml FLUSH ASDIRECTED PRN PRN Reason: Keep Vein Open Last Admin: 07/30/16 04:00 Dose: 10 ml Assessment/Plan Comment:: Assessment/plan: #1. Abdominal pain the a ascending mass. Will admit and consult surgery for the colonoscopy already scheduled. Will start a prep. #2. Hyperlipidemia: On medication #3. BPH: #4. Insomnia: Uses Trazodone. #5. Anemia: Hb 9.6 #6. CRF: Creatinine is 1.5 with eGFR 38. #7. Obesity
[2016-07-30] MEDS ORDERED: Bisacodyl 5 MG Tab PO ONE ×2 (09:00→20:00)
[2016-07-30] MEDS: Tamsulosin 0.4 MG Cap.ER PO SCH (12:52)
[2016-07-30] MEDS: Pantoprazole 40 MG Tab.CR PO SCH ×2 (12:53→17:32)
[2016-07-30] MEDS: Furosemide 20 MG Tab PO SCH (12:53)
[2016-07-30] MEDS: Acetaminophen/Codeine 300-30 MG Tab PO PRN (15:04)
[2016-07-30] MEDS ORDERED: Polyethylene Glycol 3350 Powder 238 GM Bot PO ONE (17:00)
[2016-07-30] MEDS: traZODone 50 MG Tab PO SCH (20:40)
[2016-07-31] MEDS: Dextrose 5%-0.9% NaCl 1,000 ML IV SCH ×3 (00:22→23:40)
[2016-07-31] MEDS ORDERED: Midazolam 1 MG/ML 2 ML SDV ONE (10:00)
[2016-07-31] MEDS ORDERED: Propofol 200 MG/20 ML SDV ONE ×2 (10:00)
[2016-07-31] MEDS ORDERED: fentaNYL 100 MCG/2 ML SDV ONE (10:00)
[2016-07-31] MEDS: Tamsulosin 0.4 MG Cap.ER PO SCH (11:22)
[2016-07-31] MEDS: Furosemide 20 MG Tab PO SCH (11:22)
[2016-07-31] MEDS: Pantoprazole 40 MG Tab.CR PO SCH ×2 (11:23→16:21)
--- NOTE | 2016-07-31 11:48 | CR ---
Chest 2V FINDINGS: The heart and vascular structures are normal in appearance. No infiltrates or effusions ar e demonstrated. There are no pulmonary nodules. The skeletal structures are unremarkable. IMPRESSION: 1. No acute findings.
[2016-07-31] MEDS: traZODone 50 MG Tab PO SCH (20:34)
[2016-07-31] MEDS: Acetaminophen/Codeine 300-30 MG Tab PO PRN (21:29)
[2016-08-01] MEDS: traZODone 50 MG Tab PO SCH ×2 (00:09→20:45)
--- NOTE | 2016-08-01 07:26 | OR ---
DATE OF PROCEDURE: 07/31/2016 PREOPERATIVE DIAGNOSIS: Right colon lesion. POSTOPERATIVE DIAGNOSES: Diverticulosis, near obstructing right colon lesion. PROCEDURE: Colonoscopy to the right colon. ANESTHESIA: IV anesthesia with monitored anesthesia care. INDICATION: This 81-year-old white male is referred for a colonoscopy. He complained of some abdominal pain and had a CAT scan, which showed a circumferential lesion in the right colon. An attempt was made to do a bowel prep, but he vomited the prep material. He was in the hospital. He was given enemas until clear. I counseled him for a colonoscopy with possible biopsy and/or polypectomy including risks and alternatives, and he gave his informed consent to proceed. DESCRIPTION OF PROCEDURE: The patient was placed in the left lateral decubitus position. IV anesthesia was administered by the Anesthesia Service. Time-out was held. A rectal exam was performed, which was unremarkable. The flexible video Olympus colonoscope was introduced through his anus, up his rectum, and out his colon all the way to the right colon. Here, we encountered a near-obstructing lesion. The scope could not go above it. It was actually very difficult to approach the opening. The scope was then slowly withdrawn, examining the mucosa throughout. A few scattered left-side diverticula were noted. No other lesions were noted. The scope was retroflexed in the rectum with the distal rectum appearing unremarkable. The scope was straightened and removed. He tolerated the procedure well. He will need a right hemicolectomy. Wesley Boland MD /[id number] DOC
[2016-08-01] MEDS: Pantoprazole 40 MG Tab.CR PO SCH ×2 (07:38→16:16)
[2016-08-01] MEDS: Furosemide 20 MG Tab PO SCH (08:32)
[2016-08-01] MEDS: Tamsulosin 0.4 MG Cap.ER PO SCH (08:33)
[2016-08-01] MEDS: Dextrose 5%-0.9% NaCl 1,000 ML IV SCH (11:33)
[2016-08-01] MEDS: Potassium Chloride 20 MEQ, Lidocaine 1% 2 ML in Sodium Chloride 0.9% 100 ML IV SCH ×2 (14:45→16:45)
[2016-08-01] MEDS ORDERED: Potassium Chloride 20 MEQ Tab.ER PO ONE (15:00)
--- NOTE | 2016-08-01 17:22 | PCM.PN ---
- General Info Date of Service: 07/31/16 Functional Status: Reports: pain controlled - Review of Systems General: Reports: Weakness HEENT: Reports: no symptoms Pulmonary: Reports: no symptoms Cardiovascular: Reports: No Symptoms Gastrointestinal: Reports: No symptoms Genitourinary: Reports: no symptoms Musculoskeletal: Reports: no symptoms Skin: Reports: no symptoms Neurological: Reports: No Symptoms - Patient Data Vitals - most recent: Last Vital Signs Temp 97.6 F 08/01/16 14:58 Pulse 61 08/01/16 14:58 Resp 14 08/01/16 14:58 BP 131/68 08/01/16 14:58 Pulse Ox 98 08/01/16 14:58 Weight - most recent: 204 lb 15.984 oz I&O - last 24 hours: Intake & Output 08/01/16 08/01/16 08/01/16 06:59 14:59 22:59 Intake Total 1023 657 100 Output Total 600 700 400 Balance 423 -43 -300 Lab Results last 24 hrs: Laboratory Results - last 24 hr 08/01/16 08/01/16 08/01/16 Range/Units 05:00 05:00 05:00 WBC 9.6 (4.5-11.0) K/uL RBC 3.83 L (4.30-5.90) M/uL Hgb 8.9 L (12.0-15.0) g/dL Hct 27.5 L (40.0-54.0) % MCV 72 L (80-98) fL MCH 23 L (27-31) pg MCHC 32 (32-36) % Plt Count 411 H (150-400) K/uL Neut % (Auto) 71 H (36-66) % Lymph % (Auto) 12 L (24-44) % Walsh % (Auto) 14 H (2-6) % Eos % (Auto) 2 (2-4) % Baso % (Auto) 0 (0-1) % Sodium 138 L (140-148) mmol/L Potassium 3.4 L (3.6-5.2) mmol/L Chloride 103 (100-108) mmol/L Carbon Dioxide 28 (21-32) mmol/L Anion Gap 10.4 (5.0-14.0) mmol/L BUN 10 D (7-18) mg/dL Creatinine 1.2 (0.8-1.3) mg/dL Est Cr Clr Drug Dosing 49.97 mL/min Estimated GFR (MDRD) 58 L (>60) Glucose 136 H (74-106) mg/dL Calcium 7.8 L (8.5-10.1) mg/dL Total Bilirubin 0.4 (0.2-1.0) mg/dL AST 19 (15-37) U/L ALT 13 (12-78) U/L Alkaline Phosphatase 43 L (46-116) U/L Total Protein 5.7 L (6.4-8.2) g/dL Albumin 2.3 L (3.4-5.0) g/dL Globulin 3.4 (2.3-3.5) g/dL Albumin/Globulin Ratio 0.7 L (1.2-2.2) Blood Type O POSITIVE Gel Antibody Screen Negative Med Orders - Current: Current Medications Acetaminophen/Codeine Phosphate (Tylenol With Codeine No.3 300mg/30mg) 1 - 2 tab PO Q4H PRN PRN Reason: Pain Last Admin: 07/31/16 21:29 Dose: 2 tab Furosemide (Lasix) 10 mg PO DAILY [facility] Last Admin: 08/01/16 08:32 Dose: 10 mg Dextrose/Sodium Chloride (Dextrose 5%-Normal Saline) 1,000 mls @ 75 mls/hr IV ASDIRECTED [facility] Last Admin: 08/01/16 11:33 Dose: 75 mls/hr Potassium Chloride 20 meq/Lidocaine HCl 2 ml/ Sodium Chloride 112 mls @ 56 mls/ hr IV Q2H RONN Stop: 08/01/16 18:59 Last Admin: 08/01/16 16:45 Dose: 56 mls/hr Pantoprazole Sodium (Protonix) 40 mg PO BIDAC [facility] Last Admin: 08/01/16 16:16 Dose: 40 mg Senna (Senna) 17.2 mg PO BEDTIME [facility] Sodium Chloride (Saline Flush) 10 ml FLUSH ASDIRECTED PRN PRN Reason: Keep Vein Open Tamsulosin HCl (Flomax) 0.4 mg PO DAILY [facility] Last Admin: 08/01/16 08:33 Dose: 0.4 mg Trazodone HCl (Trazodone) 50 mg PO BEDTIME [facility] Last Admin: 08/01/16 00:09 Dose: 50 mg Discontinued Medications Bisacodyl (Dulcolax) 10 mg PO ONETIME ONE Stop: 07/30/16 09:01 Last Admin: 07/30/16 12:52 Dose: 10 mg Bisacodyl (Dulcolax) 10 mg PO ONETIME ONE Stop: 07/30/16 20:01 Last Admin: 07/30/16 20:40 Dose: 10 mg Fentanyl (Sublimaze) 50 mcg IVPUSH ONETIME ONE Stop: 07/30/16 03:49 Last Admin: 07/30/16 04:07 Dose: 50 mcg Fentanyl (Sublimaze) 100 mcg .ROUTE .STK-MED ONE Stop: 07/31/16 10:01 Lactated Ringer's (Ringers, Lactated) 1,000 mls @ 999 mls/hr IV BOLUS ONE Stop: 07/30/16 04:47 Last Admin: 07/30/16 04:04 Dose: 999 mls/hr Lorazepam (Ativan) 0.5 mg IVPUSH ONETIME ONE Stop: 07/30/16 03:49 Last Admin: 07/30/16 04:12 Dose: 0.5 mg Midazolam HCl (Versed 1 Mg/Ml) 2 mg .ROUTE .STK-MED ONE Stop: 07/31/16 10:01 Polyethylene Glycol (Miralax) 238 gm PO ONETIME ONE Stop: 07/30/16 17:01 Last Admin: 07/30/16 17:31 Dose: 238 gm Potassium Chloride (Klor-Con M20) 40 meq PO ONETIME ONE Stop: 08/01/16 15:01 Last Admin: 08/01/16 14:03 Dose: 40 meq Propofol (Diprivan 20 Ml) 200 mg .ROUTE .STK-MED ONE Stop: 07/31/16 10:01 Propofol (Diprivan 20 Ml) 200 mg .ROUTE .STK-MED ONE Stop: 07/31/16 10:01 Sodium Chloride (Saline Flush) 10 ml FLUSH ASDIRECTED PRN PRN Reason: Keep Vein Open Last Admin: 07/30/16 04:00 Dose: 10 ml - Exam General: alert, oriented HEENT: Pupils equal, Pupils reactive, EOMI, Mucous membr. moist/pink Neck: supple Lungs: Clear to auscultation, Normal respiratory effort Cardiovascular: Regular Rate, Regular Rhythm Abdomen: bowel sounds present, soft, no distension, tenderness Peripheral Pulses: 1+: Radial (L), Radial (R) Skin: warm, dry, intact Neurological: no new focal deficit - Problem List Review Problem List Initiated/Reviewed/Updated: Yes - My Orders Last 24 Hours: My Active Orders 07/31/16 17:05 EKG Documentation Completion [RC] ASDIRECTED 08/01/16 05:11 EKG 12 Lead [EK] Routine 08/01/16 15:00 Potassium Chloride 20 meq Lidocaine 1% [Xylocaine 1%] 2 ml Sodium Chloride 0.9 % [Normal Saline] 100 ml IV Q2H - Plan Plan:: Assessment/plan: #1. Abdominal pain the a ascending mass. Colonoscopy showed a mass. Surgery is planned #2. Hyperlipidemia: On medication #3. BPH: #4. Insomnia: Uses Trazodone. #5. Anemia: Hb 9.6 #6. CRF: Creatinine is 1.5 with eGFR 38. #7. Obesity
--- NOTE | 2016-08-01 17:28 | PCM.PN ---
- General Info Date of Service: 08/01/16 Subjective Update: Feeling good today waiting for the surgery tomorrow. - Review of Systems General: Reports: Weakness HEENT: Reports: no symptoms Pulmonary: Reports: no symptoms Cardiovascular: Reports: No Symptoms Gastrointestinal: Reports: No symptoms Genitourinary: Reports: no symptoms Musculoskeletal: Reports: no symptoms Skin: Reports: no symptoms Neurological: Reports: No Symptoms - Patient Data Vitals - most recent: Last Vital Signs Temp 97.6 F 08/01/16 14:58 Pulse 61 08/01/16 14:58 Resp 14 08/01/16 14:58 BP 131/68 08/01/16 14:58 Pulse Ox 98 08/01/16 14:58 Weight - most recent: 204 lb 15.984 oz I&O - last 24 hours: Intake & Output 08/01/16 08/01/16 08/01/16 06:59 14:59 22:59 Intake Total 1023 657 100 Output Total 600 700 400 Balance 423 -43 -300 Lab Results last 24 hrs: Laboratory Results - last 24 hr 08/01/16 08/01/16 08/01/16 Range/Units 05:00 05:00 05:00 WBC 9.6 (4.5-11.0) K/uL RBC 3.83 L (4.30-5.90) M/uL Hgb 8.9 L (12.0-15.0) g/dL Hct 27.5 L (40.0-54.0) % MCV 72 L (80-98) fL MCH 23 L (27-31) pg MCHC 32 (32-36) % Plt Count 411 H (150-400) K/uL Neut % (Auto) 71 H (36-66) % Lymph % (Auto) 12 L (24-44) % Bowie % (Auto) 14 H (2-6) % Eos % (Auto) 2 (2-4) % Baso % (Auto) 0 (0-1) % Sodium 138 L (140-148) mmol/L Potassium 3.4 L (3.6-5.2) mmol/L Chloride 103 (100-108) mmol/L Carbon Dioxide 28 (21-32) mmol/L Anion Gap 10.4 (5.0-14.0) mmol/L BUN 10 D (7-18) mg/dL Creatinine 1.2 (0.8-1.3) mg/dL Est Cr Clr Drug Dosing 49.97 mL/min Estimated GFR (MDRD) 58 L (>60) Glucose 136 H (74-106) mg/dL Calcium 7.8 L (8.5-10.1) mg/dL Total Bilirubin 0.4 (0.2-1.0) mg/dL AST 19 (15-37) U/L ALT 13 (12-78) U/L Alkaline Phosphatase 43 L (46-116) U/L Total Protein 5.7 L (6.4-8.2) g/dL Albumin 2.3 L (3.4-5.0) g/dL Globulin 3.4 (2.3-3.5) g/dL Albumin/Globulin Ratio 0.7 L (1.2-2.2) Blood Type O POSITIVE Gel Antibody Screen Negative Med Orders - Current: Current Medications Acetaminophen/Codeine Phosphate (Tylenol With Codeine No.3 300mg/30mg) 1 - 2 tab PO Q4H PRN PRN Reason: Pain Last Admin: 07/31/16 21:29 Dose: 2 tab Furosemide (Lasix) 10 mg PO DAILY [facility] Last Admin: 08/01/16 08:32 Dose: 10 mg Dextrose/Sodium Chloride (Dextrose 5%-Normal Saline) 1,000 mls @ 75 mls/hr IV ASDIRECTED [facility] Last Admin: 08/01/16 11:33 Dose: 75 mls/hr Potassium Chloride 20 meq/Lidocaine HCl 2 ml/ Sodium Chloride 112 mls @ 56 mls/ hr IV Q2H [facility] Stop: 08/01/16 18:59 Last Admin: 08/01/16 16:45 Dose: 56 mls/hr Pantoprazole Sodium (Protonix) 40 mg PO BIDAC [facility] Last Admin: 08/01/16 16:16 Dose: 40 mg Senna (Senna) 17.2 mg PO BEDTIME [facility] [place] Sodium Chloride (Saline Flush) 10 ml FLUSH ASDIRECTED PRN PRN Reason: Keep Vein Open Tamsulosin HCl (Flomax) 0.4 mg PO DAILY [facility] Last Admin: 08/01/16 08:33 Dose: 0.4 mg Trazodone HCl (Trazodone) 50 mg PO BEDTIME [facility] Last Admin: 08/01/16 00:09 Dose: 50 mg Discontinued Medications Bisacodyl (Dulcolax) 10 mg PO ONETIME ONE Stop: 07/30/16 09:01 Last Admin: 07/30/16 12:52 Dose: 10 mg Bisacodyl (Dulcolax) 10 mg PO ONETIME ONE Stop: 07/30/16 20:01 Last Admin: 07/30/16 20:40 Dose: 10 mg Fentanyl (Sublimaze) 50 mcg IVPUSH ONETIME ONE Stop: 07/30/16 03:49 Last Admin: 07/30/16 04:07 Dose: 50 mcg Fentanyl (Sublimaze) 100 mcg .ROUTE .STK-MED ONE Stop: 07/31/16 10:01 Lactated Ringer's (Ringers, Lactated) 1,000 mls @ 999 mls/hr IV BOLUS ONE Stop: 07/30/16 04:47 Last Admin: 07/30/16 04:04 Dose: 999 mls/hr Lorazepam (Ativan) 0.5 mg IVPUSH ONETIME ONE Stop: 07/30/16 03:49 Last Admin: 07/30/16 04:12 Dose: 0.5 mg Midazolam HCl (Versed 1 Mg/Ml) 2 mg .ROUTE .STK-MED ONE Stop: 07/31/16 10:01 Polyethylene Glycol (Miralax) 238 gm PO ONETIME ONE Stop: 07/30/16 17:01 Last Admin: 07/30/16 17:31 Dose: 238 gm Potassium Chloride (Klor-Con M20) 40 meq PO ONETIME ONE Stop: 08/01/16 15:01 Last Admin: 08/01/16 14:03 Dose: 40 meq Propofol (Diprivan 20 Ml) 200 mg .ROUTE .STK-MED ONE Stop: 07/31/16 10:01 Propofol (Diprivan 20 Ml) 200 mg .ROUTE .STK-MED ONE Stop: 07/31/16 10:01 Sodium Chloride (Saline Flush) 10 ml FLUSH ASDIRECTED PRN PRN Reason: Keep Vein Open Last Admin: 07/30/16 04:00 Dose: 10 ml - Exam General: alert, oriented HEENT: Pupils equal, Pupils reactive, EOMI, Mucous membr. moist/pink Neck: supple Lungs: Clear to auscultation, Normal respiratory effort Cardiovascular: Regular Rate, Regular Rhythm Abdomen: bowel sounds present, soft, tenderness Extremities: no edema Peripheral Pulses: 1+: Radial (L), Radial (R) Skin: warm, dry, intact Psy/Mental Status: alert, normal affect, normal mood - Problem List Review Problem List Initiated/Reviewed/Updated: Yes - My Orders Last 24 Hours: My Active Orders 07/31/16 17:05 EKG Documentation Completion [RC] ASDIRECTED 08/01/16 05:11 EKG 12 Lead [EK] Routine 08/01/16 15:00 Potassium Chloride 20 meq Lidocaine 1% [Xylocaine 1%] 2 ml Sodium Chloride 0.9 % [Normal Saline] 100 ml IV Q2H - Plan Plan:: Assessment/plan: #1. Abdominal pain the a ascending mass. Colonoscopy showed a mass. Surgery is planned #2. Hyperlipidemia: On medication #3. BPH: #4. Insomnia: Uses Trazodone. #5. Anemia: Hb 9.6 #6. CRF: Creatinine is 1.5 with eGFR 38. #7. Obesity #8. Hypokalemia. This was corrected by supplementation potassium. If the K+ is normal in the morning I feel he is stable for the planned surgery. The EKG showed no acute changes.
[2016-08-01] MEDS ORDERED: Sennosides 8.6 MG Tab PO SCH (21:00)
[2016-08-02] MEDS ORDERED: Ondansetron 4 MG/2 ML SDV IVPUSH PRN (00:18)
[2016-08-02] MEDS: HYDROmorphone 0.5 MG/0.5 ML Syringe IVPUSH PRN ×5 (00:37→10:55)
[2016-08-02] MEDS: Dextrose 5%-0.9% NaCl 1,000 ML IV SCH (02:31)
[2016-08-02] MEDS ORDERED: Prochlorperazine 10 MG/2 ML SDV IVPUSH PRN (02:36)
[2016-08-02] MEDS: Pantoprazole 40 MG Tab.CR PO SCH ×2 (08:28→16:40)
[2016-08-02] MEDS: Furosemide 20 MG Tab PO SCH (09:10)
[2016-08-02] MEDS: Tamsulosin 0.4 MG Cap.ER PO SCH (09:10)
[2016-08-02] MEDS ORDERED: Naloxone 0.4 MG/ML SDV IVPUSH PRN (09:13)
[2016-08-02] MEDS ORDERED: fentaNYL 250 MCG/5 ML SDV ONE (09:35)
[2016-08-02] MEDS ORDERED: Rocuronium 50 MG/5 ML Vial ONE (09:36)
[2016-08-02] MEDS ORDERED: Dexamethasone 4 MG/ML SDV ONE (09:36)
[2016-08-02] MEDS ORDERED: Ondansetron 4 MG/2 ML SDV ONE (09:36)
[2016-08-02] MEDS ORDERED: Scopolamine 1.5 MG Transdermal Patch ONE (09:36)
[2016-08-02] MEDS ORDERED: Propofol 200 MG/20 ML SDV ONE (09:36)
[2016-08-02] MEDS ORDERED: Succinylcholine/Normal Saline 200 MG/10 ML Syringe ONE (09:36)
[2016-08-02] MEDS ORDERED: Neostigmine Methylsulfate 1 MG/ML 5 ML Syringe ONE (09:36)
[2016-08-02] MEDS ORDERED: Sodium Chloride 0.9% 10 ML ONE (12:02)
[2016-08-02] MEDS ORDERED: fentaNYL 100 MCG/2 ML SDV ONE (12:02)
[2016-08-02] MEDS ORDERED: cefOXitin 2 GM Vial ONE (12:11)
[2016-08-02] MEDS ORDERED: ePHEDrine 50 MG/ML SDV ONE (12:14)
[2016-08-02] MEDS ORDERED: Lactated Ringers 1,000 ML ONE ×2 (12:16→14:01)
[2016-08-02] MEDS: D5 1/2 NS w/ 20 mEq/L KCl 1,000 ML IV SCH (15:33)
[2016-08-02] MEDS ORDERED: Metoclopramide 10 MG/2 ML SDV IVPUSH PRN (15:38)
[2016-08-02] MEDS ORDERED: diphenhydrAMINE 50 MG/ML SDV IVPUSH PRN (15:39)
[2016-08-02] MEDS ORDERED: Lactated Ringers 250 ML IV ONE (16:22)
[2016-08-02] MEDS: fentaNYL 2,500 MCG in Sodium Chloride 0.9% 200 ML EPIDUR SCH (16:36)
--- NOTE | 2016-08-02 16:58 | PCM.PN ---
- General Info Date of Service: 08/02/16 Subjective Update: Stable post surgery, No complaints. Functional Status: Reports: pain controlled - Review of Systems General: Reports: Weakness HEENT: Reports: no symptoms Pulmonary: Reports: no symptoms Cardiovascular: Reports: No Symptoms Musculoskeletal: Reports: no symptoms Skin: Reports: no symptoms Neurological: Reports: No Symptoms Psychiatric: Reports: no symptoms - Patient Data Vitals - most recent: Last Vital Signs Temp 96 F 08/02/16 16:00 Pulse 74 08/02/16 16:41 Resp 16 08/02/16 16:41 BP 100/48 L 08/02/16 16:41 Pulse Ox 99 08/02/16 16:41 Weight - most recent: 186 lb 3.2 oz I&O - last 24 hours: Intake & Output 08/02/16 08/02/16 08/02/16 06:59 14:59 22:59 Intake Total 1700 75 Output Total 600 625 30 Balance 1100 -550 -30 Lab Results last 24 hrs: Laboratory Results - last 24 hr 08/01/16 08/02/16 08/02/16 Range/Units 05:00 05:40 09:56 WBC 13.3 H (4.5-11.0) K/uL RBC 4.26 L (4.30-5.90) M/uL Hgb 9.8 L (12.0-15.0) g/dL Hct 30.8 L (40.0-54.0) % MCV 72 L (80-98) fL MCH 23 L (27-31) pg MCHC 32 (32-36) % Plt Count 424 H (150-400) K/uL Sodium 136 L (140-148) mmol/L Potassium 4.0 (3.6-5.2) mmol/L Chloride 103 (100-108) mmol/L Carbon Dioxide 29 (21-32) mmol/L Anion Gap 8.0 (5.0-14.0) mmol/L BUN 10 (7-18) mg/dL Creatinine 1.1 (0.8-1.3) mg/dL Est Cr Clr Drug Dosing 54.51 mL/min Estimated GFR (MDRD) > 60 (>60) Glucose 145 H (74-106) mg/dL Calcium 8.1 L (8.5-10.1) mg/dL Blood Type O POSITIVE Gel Antibody Screen Negative Crossmatch See Detail Yo Results last 24 hrs: Microbiology 08/02/16 12:54 Gram Stain - Final Peritoneal Fluid Med Orders - Current: Current Medications Diphenhydramine HCl (Benadryl) 25 - 50 mg IVPUSH Q4H PRN PRN Reason: ITCH Furosemide (Lasix) 10 mg IVPUSH DAILY [facility] Dextrose/Sodium Chloride (Dextrose 5%-Normal Saline) 1,000 mls @ 75 mls/hr IV ASDIRECTED [facility] Last Admin: 08/02/16 02:31 Dose: 75 mls/hr Fentanyl 2,500 mcg/ Sodium (Chloride) 250 mls @ 0 mls/hr EPIDUR TITRATE [facility]; Titrate PRN Reason: Protocol Last Admin: 08/02/16 16:36 Dose: 6 ml/hr, 6 mls/hr Potassium Chloride/Dextrose/Sod Cl (D5 1/2 Ns W/ 20 Meq/L Kcl) 1,000 mls @ 125 mls/hr IV ASDIRECTED [facility] Last Admin: 08/02/16 15:33 Dose: 125 mls/hr Cefoxitin Sodium 2 gm/ Sodium (Chloride) 50 mls @ 100 mls/hr IV Q8H [facility] Stop: 08/03/16 04:29 Lactated Ringer's (Ringers, Lactated) 250 mls @ 250 mls/hr IV BOLUS ONE Stop: 08/02/16 17:21 Last Admin: 08/02/16 16:30 Dose: 250 mls/hr Insulin Detemir (Levemir) 28 unit SUBCUT ONETIME ONE Stop: 08/02/16 21:01 Metoclopramide HCl (Reglan) 10 mg IVPUSH Q6H PRN PRN Reason: NAUSEA Naloxone HCl (Narcan) 0.1 mg IVPUSH Q5M PRN PRN Reason: RESP RATE LESS THAN 6/MINUTE Ondansetron HCl (Zofran) 4 mg IVPUSH Q6H PRN PRN Reason: Nausea/Vomiting Last Admin: 08/02/16 00:37 Dose: 4 mg Pantoprazole Sodium (Protonix Iv) 40 mg IVPUSH Q12H [facility] Prochlorperazine Edisylate (Compazine) 5 mg IVPUSH Q6H PRN PRN Reason: Nausea/Vomiting Last Admin: 08/02/16 02:57 Dose: 5 mg Sodium Chloride (Saline Flush) 10 ml FLUSH ASDIRECTED PRN PRN Reason: Keep Vein Open Discontinued Medications Acetaminophen/Codeine Phosphate (Tylenol With Codeine No.3 300mg/30mg) 1 - 2 tab PO Q4H PRN PRN Reason: Pain Last Admin: 07/31/16 21:29 Dose: 2 tab Bisacodyl (Dulcolax) 10 mg PO ONETIME ONE Stop: 07/30/16 09:01 Last Admin: 07/30/16 12:52 Dose: 10 mg Bisacodyl (Dulcolax) 10 mg PO ONETIME ONE Stop: 07/30/16 20:01 Last Admin: 07/30/16 20:40 Dose: 10 mg Cefoxitin Sodium (Mefoxin) Confirm Administered Dose 2 gm .ROUTE .STK-MED ONE Stop: 08/02/16 12:12 Dexamethasone (Dexamethasone) Confirm Administered Dose 4 mg .ROUTE .STK-MED ONE Stop: 08/02/16 09:37 Ephedrine Sulfate (Ephedrine Sulfate) Confirm Administered Dose 50 mg .ROUTE .STK-MED ONE Stop: 08/02/16 12:15 Fentanyl (Sublimaze) 50 mcg IVPUSH ONETIME ONE Stop: 07/30/16 03:49 Last Admin: 07/30/16 04:07 Dose: 50 mcg Fentanyl (Sublimaze) 100 mcg .ROUTE .STK-MED ONE Stop: 07/31/16 10:01 Fentanyl (Sublimaze) Confirm Administered Dose 250 mcg .ROUTE .STK-MED ONE Stop: 08/02/16 09:36 Fentanyl (Sublimaze) Confirm Administered Dose 100 mcg .ROUTE .STK-MED ONE Stop: 08/02/16 12:03 Furosemide (Lasix) 10 mg PO DAILY [facility] Last Admin: 08/02/16 09:10 Dose: Not Given Glycopyrrolate () Confirm Administered Dose 1 mg .ROUTE .STK-MED ONE Stop: 08/02/16 09:37 Hydromorphone HCl (Dilaudid) 0.5 mg IVPUSH Q1H PRN PRN Reason: Pain Last Admin: 08/02/16 06:07 Dose: 0.5 mg Hydromorphone HCl (Dilaudid) 0.5 mg IVPUSH Q30M PRN PRN Reason: Pain Last Admin: 08/02/16 10:55 Dose: 0.5 mg Lactated Ringer's (Ringers, Lactated) 1,000 mls @ 999 mls/hr IV BOLUS ONE Stop: 07/30/16 04:47 Last Admin: 07/30/16 04:04 Dose: 999 mls/hr Potassium Chloride 20 meq/Lidocaine HCl 2 ml/ Sodium Chloride 112 mls @ 56 mls/ hr IV Q2H [facility] Stop: 08/01/16 18:59 Last Admin: 08/01/16 16:45 Dose: 56 mls/hr Sodium Chloride (Normal Saline) Confirm Administered Dose 10 mls @ as directed .ROUTE .STK-MED ONE Stop: 08/02/16 12:03 Lactated Ringer's (Ringers, Lactated) Confirm Administered Dose 1,000 mls @ as directed .ROUTE .STK-MED ONE Stop: 08/02/16 12:17 Lactated Ringer's (Ringers, Lactated) Confirm Administered Dose 1,000 mls @ as directed .ROUTE .STK-MED ONE Stop: 08/02/16 14:02 Lorazepam (Ativan) 0.5 mg IVPUSH ONETIME ONE Stop: 07/30/16 03:49 Last Admin: 07/30/16 04:12 Dose: 0.5 mg Midazolam HCl (Versed 1 Mg/Ml) 2 mg .ROUTE .STK-MED ONE Stop: 07/31/16 10:01 Neostigmine Methylsulfate (Neostigmine) Confirm Administered Dose 5 mg .ROUTE .STK-MED ONE Stop: 08/02/16 09:37 Ondansetron HCl (Zofran) Confirm Administered Dose 4 mg .ROUTE .STK-MED ONE Stop: 08/02/16 09:37 Pantoprazole Sodium (Protonix) 40 mg PO BIDAC [facility] Last Admin: 08/02/16 16:40 Dose: Not Given Polyethylene Glycol (Miralax) 238 gm PO ONETIME ONE Stop: 07/30/16 17:01 Last Admin: 07/30/16 17:31 Dose: 238 gm Potassium Chloride (Klor-Con M20) 40 meq PO ONETIME ONE Stop: 08/01/16 15:01 Last Admin: 08/01/16 14:03 Dose: 40 meq Propofol (Diprivan 20 Ml) 200 mg .ROUTE .STK-MED ONE Stop: 07/31/16 10:01 Propofol (Diprivan 20 Ml) 200 mg .ROUTE .STK-MED ONE Stop: 07/31/16 10:01 Propofol (Diprivan 20 Ml) Confirm Administered Dose 200 mg .ROUTE .STK-MED ONE Stop: 08/02/16 09:37 Rocuronium Cisco (Zemuron) Confirm Administered Dose 50 mg .ROUTE .STK-MED ONE Stop: 08/02/16 09:37 Scopolamine (Transderm-Scop) Confirm Administered Dose 1.5 mg .ROUTE .STK-MED ONE Stop: 08/02/16 09:37 Senna (Senna) 17.2 mg PO BEDTIME [facility] Last Admin: 08/01/16 20:38 Dose: 17.2 mg Sodium Chloride (Saline Flush) 10 ml FLUSH ASDIRECTED PRN PRN Reason: Keep Vein Open Last Admin: 07/30/16 04:00 Dose: 10 ml Succinylcholine Chloride (Succinylcholine In Ns Pf) Confirm Administered Dose 200 mg .ROUTE .STK-MED ONE Stop: 08/02/16 09:37 Tamsulosin HCl (Flomax) 0.4 mg PO DAILY [facility] Last Admin: 08/02/16 09:10 Dose: Not Given Trazodone HCl (Trazodone) 50 mg PO BEDTIME [facility] Last Admin: 08/01/16 20:45 Dose: 50 mg - Exam General: alert, oriented HEENT: Pupils equal, Pupils reactive, EOMI, Mucous membr. moist/pink Lungs: Clear to auscultation, Normal respiratory effort Cardiovascular: Regular Rate, Regular Rhythm Abdomen: tenderness - Problem List Review Problem List Initiated/Reviewed/Updated: Yes - My Orders Last 24 Hours: My Active Orders 08/02/16 02:36 Prochlorperazine [Compazine] 5 mg IVPUSH Q6H PRN - Plan Plan:: Assessment/plan: #1. Tumor mass with lymph nodes. #2. Hyperlipidemia: On medication #3. BPH: #4. Insomnia: Uses Trazodone. #5. Anemia: Hb 9.8 #6. CRF: Creatinine is 1.5 with eGFR 38. #7. Obesity #8. K+ normal Status post surgery condition stable.
[2016-08-02] MEDS: Pantoprazole 40 MG Vial IVPUSH SCH (17:41)
[2016-08-02] MEDS ORDERED: Hetastarch in NS 500 ML IV ONE (18:48)
[2016-08-02] MEDS: cefOXitin 2 GM in Sodium Chloride 0.9% 50 ML IV SCH (19:23)
[2016-08-02] MEDS ORDERED: Insulin Detemir 100 Units/ML 3 ML Pen SUBCUT ONE (21:00)
[2016-08-03] MEDS ORDERED: Lactated Ringers 250 ML IV ONE (00:09)
[2016-08-03] MEDS: D5 1/2 NS w/ 20 mEq/L KCl 1,000 ML IV SCH ×2 (00:29→07:24)
[2016-08-03] MEDS: Pantoprazole 40 MG Vial IVPUSH SCH ×2 (05:37→17:40)
[2016-08-03] MEDS: cefOXitin 2 GM in Sodium Chloride 0.9% 50 ML IV SCH (05:37)
[2016-08-03] MEDS: Furosemide 20 MG/2 ML VIAL IVPUSH SCH (09:13)
--- NOTE | 2016-08-03 10:36 | PCM.SURGPN ---
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 Bran left in due to use of an epidural. ), incentive spirometry - Review of Systems General: Reports: No Symptoms HEENT: Reports: no symptoms Pulmonary: Reports: no symptoms Cardiovascular: Reports: No Symptoms Gastrointestinal: Reports: No symptoms. Denies: Flatus Genitourinary: Reports: no symptoms Musculoskeletal: Reports: no symptoms Skin: Reports: no symptoms Neurological: Reports: No Symptoms Psychiatric: Reports: no symptoms - Patient Data Vitals - most recent: Last Vital Signs Temp 97.7 F 08/03/16 07:33 Pulse 95 08/03/16 07:33 Resp 16 08/03/16 07:44 BP 110/61 08/03/16 07:33 Pulse Ox 93 L 08/03/16 07:33 Weight - most recent: 186 lb 3.2 oz I&O - last 24 hours: Intake & Output 08/02/16 08/03/16 08/03/16 22:59 06:59 14:59 Intake Total 1090 1637 Output Total 165 330 290 Balance 925 1307 -290 Lab Results last 24 hrs: Laboratory Results - last 24 hr 08/01/16 08/01/16 08/02/16 Range/Units 05:00 05:00 18:00 WBC 10.5 (4.5-11.0) K/uL RBC 4.33 (4.30-5.90) M/uL Hgb 10.2 L (12.0-15.0) g/dL Hct 31.4 L (40.0-54.0) % MCV 73 L (80-98) fL MCH 24 L (27-31) pg MCHC 33 (32-36) % Plt Count 341 (150-400) K/uL Sodium (140-148) mmol/L Potassium (3.6-5.2) mmol/L Chloride (100-108) mmol/L Carbon Dioxide (21-32) mmol/L Anion Gap (5.0-14.0) mmol/L BUN (7-18) mg/dL Creatinine (0.8-1.3) mg/dL Est Cr Clr Drug Dosing mL/min Estimated GFR (MDRD) (>60) Glucose (74-106) mg/dL Calcium (8.5-10.1) mg/dL Carcinoembryonic Ag 3.1 (0.0-3.7) ng/mL Blood Type O POSITIVE Gel Antibody Screen Negative Crossmatch See Detail 08/03/16 08/03/16 Range/Units 05:39 05:39 WBC 21.7 H (4.5-11.0) K/uL RBC 3.88 L (4.30-5.90) M/uL Hgb 8.6 L (12.0-15.0) g/dL Hct 28.2 L (40.0-54.0) % MCV 73 L (80-98) fL MCH 22 L (27-31) pg MCHC 31 L (32-36) % Plt Count 384 (150-400) K/uL Sodium 137 L (140-148) mmol/L Potassium 5.5 H (3.6-5.2) mmol/L Chloride 104 (100-108) mmol/L Carbon Dioxide 26 (21-32) mmol/L Anion Gap 12.5 (5.0-14.0) mmol/L BUN 13 (7-18) mg/dL Creatinine 1.3 (0.8-1.3) mg/dL Est Cr Clr Drug Dosing 46.13 mL/min Estimated GFR (MDRD) 53 L (>60) Glucose 91 (74-106) mg/dL Calcium 7.7 L (8.5-10.1) mg/dL Carcinoembryonic Ag (0.0-3.7) ng/mL Blood Type Gel Antibody Screen Crossmatch Yo Results last 24 hrs: Microbiology 08/02/16 12:54 Gram Stain - Final Peritoneal Fluid Med Orders - Current: Current Medications Diphenhydramine HCl (Benadryl) 25 - 50 mg IVPUSH Q4H PRN PRN Reason: ITCH Furosemide (Lasix) 10 mg IVPUSH DAILY [facility] Last Admin: 08/03/16 09:13 Dose: 10 mg Dextrose/Sodium Chloride (Dextrose 5%-Normal Saline) 1,000 mls @ 75 mls/hr IV ASDIRECTED RONN Last Admin: 08/02/16 02:31 Dose: 75 mls/hr Fentanyl 2,500 mcg/ Sodium (Chloride) 250 mls @ 0 mls/hr EPIDUR TITRATE RONN; Titrate PRN Reason: Protocol Last Admin: 08/02/16 16:36 Dose: 6 ml/hr, 6 mls/hr Dextrose/Sodium Chloride (Dextrose 5%-1/2 Ns) 1,000 mls @ 150 mls/hr IV ASDIRECTED RONN Metoclopramide HCl (Reglan) 10 mg IVPUSH Q6H PRN PRN Reason: NAUSEA Naloxone HCl (Narcan) 0.1 mg IVPUSH Q5M PRN PRN Reason: RESP RATE LESS THAN 6/MINUTE Ondansetron HCl (Zofran) 4 mg IVPUSH Q6H PRN PRN Reason: Nausea/Vomiting Last Admin: 08/02/16 00:37 Dose: 4 mg Pantoprazole Sodium (Protonix Iv) 40 mg IVPUSH Q12H RONN Last Admin: 08/03/16 05:37 Dose: 40 mg Prochlorperazine Edisylate (Compazine) 5 mg IVPUSH Q6H PRN PRN Reason: Nausea/Vomiting Last Admin: 08/02/16 02:57 Dose: 5 mg Sodium Chloride (Saline Flush) 10 ml FLUSH ASDIRECTED PRN PRN Reason: Keep Vein Open Discontinued Medications Acetaminophen/Codeine Phosphate (Tylenol With Codeine No.3 300mg/30mg) 1 - 2 tab PO Q4H PRN PRN Reason: Pain Last Admin: 07/31/16 21:29 Dose: 2 tab Bisacodyl (Dulcolax) 10 mg PO ONETIME ONE Stop: 07/30/16 09:01 Last Admin: 07/30/16 12:52 Dose: 10 mg Bisacodyl (Dulcolax) 10 mg PO ONETIME ONE Stop: 07/30/16 20:01 Last Admin: 07/30/16 20:40 Dose: 10 mg Cefoxitin Sodium (Mefoxin) Confirm Administered Dose 2 gm .ROUTE .STK-MED ONE Stop: 08/02/16 12:12 Dexamethasone (Dexamethasone) Confirm Administered Dose 4 mg .ROUTE .STK-MED ONE Stop: 08/02/16 09:37 Ephedrine Sulfate (Ephedrine Sulfate) Confirm Administered Dose 50 mg .ROUTE .STK-MED ONE Stop: 08/02/16 12:15 Fentanyl (Sublimaze) 50 mcg IVPUSH ONETIME ONE Stop: 07/30/16 03:49 Last Admin: 07/30/16 04:07 Dose: 50 mcg Fentanyl (Sublimaze) 100 mcg .ROUTE .STK-MED ONE Stop: 07/31/16 10:01 Fentanyl (Sublimaze) Confirm Administered Dose 250 mcg .ROUTE .STK-MED ONE Stop: 08/02/16 09:36 Fentanyl (Sublimaze) Confirm Administered Dose 100 mcg .ROUTE .STK-MED ONE Stop: 08/02/16 12:03 Furosemide (Lasix) 10 mg PO DAILY [facility] Last Admin: 08/02/16 09:10 Dose: Not Given Glycopyrrolate () Confirm Administered Dose 1 mg .ROUTE .STK-MED ONE Stop: 08/02/16 09:37 Hydromorphone HCl (Dilaudid) 0.5 mg IVPUSH Q1H PRN PRN Reason: Pain Last Admin: 08/02/16 06:07 Dose: 0.5 mg Hydromorphone HCl (Dilaudid) 0.5 mg IVPUSH Q30M PRN PRN Reason: Pain Last Admin: 08/02/16 10:55 Dose: 0.5 mg Lactated Ringer's (Ringers, Lactated) 1,000 mls @ 999 mls/hr IV BOLUS ONE Stop: 07/30/16 04:47 Last Admin: 07/30/16 04:04 Dose: 999 mls/hr Potassium Chloride 20 meq/Lidocaine HCl 2 ml/ Sodium Chloride 112 mls @ 56 mls/ hr IV Q2H RONN Stop: 08/01/16 18:59 Last Admin: 08/01/16 16:45 Dose: 56 mls/hr Sodium Chloride (Normal Saline) Confirm Administered Dose 10 mls @ as directed .ROUTE .STK-MED ONE Stop: 08/02/16 12:03 Lactated Ringer's (Ringers, Lactated) Confirm Administered Dose 1,000 mls @ as directed .ROUTE .STK-MED ONE Stop: 08/02/16 12:17 Lactated Ringer's (Ringers, Lactated) Confirm Administered Dose 1,000 mls @ as directed .ROUTE .STK-MED ONE Stop: 08/02/16 14:02 Potassium Chloride/Dextrose/Sod Cl (D5 1/2 Ns W/ 20 Meq/L Kcl) 1,000 mls @ 150 mls/hr IV ASDIRECTED [facility] Last Admin: 08/03/16 07:24 Dose: 125 mls/hr Cefoxitin Sodium 2 gm/ Sodium (Chloride) 50 mls @ 100 mls/hr IV Q8H RONN Stop: 08/03/16 04:29 Last Admin: 08/03/16 05:37 Dose: 100 mls/hr Lactated Ringer's (Ringers, Lactated) 250 mls @ 250 mls/hr IV BOLUS ONE Stop: 08/02/16 17:21 Last Admin: 08/02/16 16:30 Dose: 250 mls/hr Hetastarch/Sodium Chloride (Hetastarch 6% In Normal Saline) 500 mls @ 500 mls/ hr IV ONETIME ONE Stop: 08/02/16 19:47 Last Admin: 08/02/16 19:11 Dose: 500 mls/hr Lactated Ringer's (Ringers, Lactated) 250 mls @ 250 mls/hr IV BOLUS ONE Stop: 08/03/16 01:08 Last Admin: 08/03/16 00:29 Dose: 250 mls/hr Lorazepam (Ativan) 0.5 mg IVPUSH ONETIME ONE Stop: 07/30/16 03:49 Last Admin: 07/30/16 04:12 Dose: 0.5 mg Midazolam HCl (Versed 1 Mg/Ml) 2 mg .ROUTE .STK-MED ONE Stop: 07/31/16 10:01 Neostigmine Methylsulfate (Neostigmine) Confirm Administered Dose 5 mg .ROUTE .STK-MED ONE Stop: 08/02/16 09:37 Ondansetron HCl (Zofran) Confirm Administered Dose 4 mg .ROUTE .STK-MED ONE Stop: 08/02/16 09:37 Pantoprazole Sodium (Protonix) 40 mg PO BIDAC [facility] Last Admin: 08/02/16 16:40 Dose: Not Given Polyethylene Glycol (Miralax) 238 gm PO ONETIME ONE Stop: 07/30/16 17:01 Last Admin: 07/30/16 17:31 Dose: 238 gm Potassium Chloride (Klor-Con M20) 40 meq PO ONETIME ONE Stop: 08/01/16 15:01 Last Admin: 08/01/16 14:03 Dose: 40 meq Propofol (Diprivan 20 Ml) 200 mg .ROUTE .STK-MED ONE Stop: 07/31/16 10:01 Propofol (Diprivan 20 Ml) 200 mg .ROUTE .STK-MED ONE Stop: 07/31/16 10:01 Propofol (Diprivan 20 Ml) Confirm Administered Dose 200 mg .ROUTE .STK-MED ONE Stop: 08/02/16 09:37 Rocuronium [place] (Zemuron) Confirm Administered Dose 50 mg .ROUTE .STK-MED ONE Stop: 08/02/16 09:37 Scopolamine (Transderm-Scop) Confirm Administered Dose 1.5 mg .ROUTE .STK-MED ONE Stop: 08/02/16 09:37 Senna (Senna) 17.2 mg PO BEDTIME [facility] Last Admin: 08/01/16 20:38 Dose: 17.2 mg Sodium Chloride (Saline Flush) 10 ml FLUSH ASDIRECTED PRN PRN Reason: Keep Vein Open Last Admin: 07/30/16 04:00 Dose: 10 ml Succinylcholine Chloride (Succinylcholine In Ns Pf) Confirm Administered Dose 200 mg .ROUTE .STK-MED ONE Stop: 08/02/16 09:37 Tamsulosin HCl (Flomax) 0.4 mg PO DAILY [facility] Last Admin: 08/02/16 09:10 Dose: Not Given Trazodone HCl (Trazodone) 50 mg PO BEDTIME [facility] Last Admin: 08/01/16 20:45 Dose: 50 mg - Exam Wound/Incisions: dressing dry and intact, no drainage Quality Assessment: urine catheter (Leave in because of using an epidural catheter for pain relief. ), DVT prophylaxis (SCD's. No Lovenox for now as Hgb went from 10.5 to 8.6 in 12 hours. ) General: alert, oriented (A little confused. ), cooperative, no acute distress Lungs: Clear to auscultation, Normal respiratory effort Cardiovascular: Regular Rate, Regular Rhythm Abdomen: bowel sounds present, soft, no tenderness, no distension Extremities: no edema Skin: warm, dry, intact Neurological: no new focal deficit, normal speech, normal tone Psy/Mental Status: alert, normal affect, normal mood (Pleasant. ) - Problem List Review Problem List Initiated/Reviewed/Updated: Yes - My Orders Last 24 Hours: Active Orders 24 hr Category Date Time Status Patient Status [ADT] Routine ADT 08/02/16 14:23 Active Ambulate [RC] PER UNIT ROUTINE Care 08/02/16 14:23 Active Antiembolic Devices [RC] .Routine Care 08/02/16 14:29 Active Communication Order [RC] ROUTINE Care 08/02/16 14:21 Active Communication Order [RC] ROUTINE Care 08/02/16 14:34 Active NG [Gastrointestinal Tube Mgmt] [RC] ASDIRECTED Care 08/02/16 14:22 Active Notify Provider Intake and Out [RC] PRN Care 08/02/16 14:28 Active Notify Provider Vital Signs [RC] PRN Care 08/02/16 14:28 Active Oxygen Therapy [RC] PRN Care 08/02/16 14:23 Active Pulse Oximetry [RC] CONTINUOUS Care 08/02/16 14:29 Active RT Incentive Spirometry [RC] ASDIRECTED Care 08/02/16 14:23 Active Up With Assistance [RC] ASDIRECTED Care 08/02/16 14:23 Active Up ad Humaira [RC] ASDIRECTED Care 08/02/16 14:23 Active Vital Signs [RC] PER UNIT ROUTINE Care 08/02/16 14:23 Active Nothing Per Oral Diet [DIET] Diet 08/02/16 Dinner Active CBC W/O DIFF,HEMOGRAM [HEME] DAILY Lab 08/04/16 05:11 Ordered CBC W/O DIFF,HEMOGRAM [HEME] DAILY Lab 08/05/16 05:11 Ordered CBC W/O DIFF,HEMOGRAM [HEME] DAILY Lab 08/06/16 05:11 Ordered CBC W/O DIFF,HEMOGRAM [HEME] DAILY Lab 08/07/16 05:11 Ordered CBC W/O DIFF,HEMOGRAM [HEME] DAILY Lab 08/08/16 05:11 Ordered CULTURE ANAEROBIC [RM] Routine Lab 08/02/16 12:54 Results CULTURE WOUND + SMEAR [RM] Routine Lab 08/02/16 12:54 Results RED BLOOD CELLS LP [BBK] Routine Lab 08/02/16 09:56 Results Dextrose 5%-1/2 Normal Saline @ 150 MLS/HR(1000ml) Med 08/03/16 10:30 Ordered Dextrose 5%-0.45% NaCl [Dextrose 5%-1/2 NS] 1,000 ml IV ASDIRECTED Furosemide [Lasix] Med 08/03/16 09:00 Active 10 mg IVPUSH DAILY Metoclopramide [Reglan] Med 08/02/16 15:38 Active 10 mg IVPUSH Q6H PRN Pantoprazole [ProTONIX IV] Med 08/02/16 18:00 Active 40 mg IVPUSH Q12H diphenhydrAMINE [Benadryl] Med 08/02/16 15:39 Active 25 - 50 mg IVPUSH Q4H PRN Abdominal Binder [OM.PC] Per Unit Routine Oth 08/02/16 14:27 Ordered DVT/VTE Prophylaxis Reflex [OM.PC] Per Unit Routine Oth 08/02/16 14:29 Ordered Nasogastric Orogastric Tube Removal [OM.PC] Routine Oth 08/03/16 10:28 Ordered Medication Orders Diphenhydramine HCl (Benadryl) 25 - 50 mg IVPUSH Q4H PRN PRN Reason: ITCH Furosemide (Lasix) 10 mg IVPUSH DAILY [facility]ON[facility] Last Admin: 08/03/16 09:13 Dose: 10 mg Dextrose/Sodium Chloride (Dextrose 5%-Normal Saline) 1,000 mls @ 75 mls/hr IV ASDIRECTED RONN Last Admin: 08/02/16 02:31 Dose: 75 mls/hr Infusion: 08/02/16 00:53 Dose: 75 mls/hr Admin: 08/01/16 11:33 Dose: 75 mls/hr Infusion: 08/01/16 11:33 Dose: 75 mls/hr Admin: 07/31/16 23:40 Dose: 75 mls/hr Infusion: 07/31/16 23:40 Dose: 75 mls/hr Admin: 07/31/16 10:20 Dose: 75 mls/hr Infusion: 07/31/16 10:20 Dose: 75 mls/hr Admin: 07/31/16 00:22 Dose: 75 mls/hr Fentanyl 2,500 mcg/ Sodium (Chloride) 250 mls @ 0 mls/hr EPIDUR TITRATE RONN; Titrate PRN Reason: Protocol Last Admin: 08/02/16 16:36 Dose: 6 ml/hr, 6 mls/hr Dextrose/Sodium Chloride (Dextrose 5%-1/2 Ns) 1,000 mls @ 150 mls/hr IV ASDIRECTED RONN Metoclopramide HCl (Reglan) 10 mg IVPUSH Q6H PRN PRN Reason: NAUSEA Naloxone HCl (Narcan) 0.1 mg IVPUSH Q5M PRN PRN Reason: RESP RATE LESS THAN 6/MINUTE Ondansetron HCl (Zofran) 4 mg IVPUSH Q6H PRN PRN Reason: Nausea/Vomiting Last Admin: 08/02/16 00:37 Dose: 4 mg Pantoprazole Sodium (Protonix Iv) 40 mg IVPUSH Q12H RONN Last Admin: 08/03/16 05:37 Dose: 40 mg Admin: 08/02/16 17:41 Dose: 40 mg Prochlorperazine Edisylate (Compazine) 5 mg IVPUSH Q6H PRN PRN Reason: Nausea/Vomiting Last Admin: 08/02/16 02:57 Dose: 5 mg Sodium Chloride (Saline Flush) 10 ml FLUSH ASDIRECTED PRN PRN Reason: Keep Vein Open - Assessment Assessment (Free Text/Narrative):: Hgb 8.6, WBC 21.7, potassium 5.5, very little NG output. - Plan Plan (Free Text/Narrative):: Remove potassium for IV fluid, remove NG, leave Brna in as epidural catheter is in place and used for pain control.
[2016-08-03] MEDS: Dextrose 5%-0.45% NaCl 1,000 ML IV SCH ×2 (11:10→17:55)
--- NOTE | 2016-08-03 21:54 | PCM.PN ---
- General Info Date of Service: 08/03/16 Functional Status: Reports: pain controlled - Review of Systems General: Reports: Weakness HEENT: Reports: no symptoms Pulmonary: Reports: no symptoms Cardiovascular: Reports: No Symptoms Gastrointestinal: Reports: Abdominal pain Genitourinary: Reports: no symptoms Musculoskeletal: Reports: no symptoms Skin: Reports: no symptoms Psychiatric: Reports: no symptoms - Patient Data Vitals - most recent: Last Vital Signs Temp 98.0 F 08/03/16 18:44 Pulse 83 08/03/16 18:44 Resp 16 08/03/16 18:44 BP 127/67 08/03/16 18:44 Pulse Ox 100 08/03/16 19:50 Weight - most recent: 189 lb 13.088 oz I&O - last 24 hours: Intake & Output 08/03/16 08/03/16 08/03/16 06:59 14:59 22:59 Intake Total 3340 910 1996 Output Total 493 027 5203 Balance 1307 256 -847 Lab Results last 24 hrs: Laboratory Results - last 24 hr 08/01/16 08/03/16 08/03/16 Range/Units 05:00 05:39 05:39 WBC 21.7 H (4.5-11.0) K/uL RBC 3.88 L (4.30-5.90) M/uL Hgb 8.6 L (12.0-15.0) g/dL Hct 28.2 L (40.0-54.0) % MCV 73 L (80-98) fL MCH 22 L (27-31) pg MCHC 31 L (32-36) % Plt Count 384 (150-400) K/uL Sodium 137 L (140-148) mmol/L Potassium 5.5 H (3.6-5.2) mmol/L Chloride 104 (100-108) mmol/L Carbon Dioxide 26 (21-32) mmol/L Anion Gap 12.5 (5.0-14.0) mmol/L BUN 13 (7-18) mg/dL Creatinine 1.3 (0.8-1.3) mg/dL Est Cr Clr Drug Dosing 46.13 mL/min Estimated GFR (MDRD) 53 L (>60) Glucose 91 (74-106) mg/dL Calcium 7.7 L (8.5-10.1) mg/dL Carcinoembryonic Ag 3.1 (0.0-3.7) ng/mL Med Orders - Current: Current Medications Diphenhydramine HCl (Benadryl) 25 - 50 mg IVPUSH Q4H PRN PRN Reason: ITCH Furosemide (Lasix) 10 mg IVPUSH DAILY [facility] Last Admin: 08/03/16 09:13 Dose: 10 mg Fentanyl 2,500 mcg/ Sodium (Chloride) 250 mls @ 0 mls/hr EPIDUR TITRATE RONN; Titrate PRN Reason: Protocol Last Admin: 08/02/16 16:36 Dose: 6 ml/hr, 6 mls/hr Dextrose/Sodium Chloride (Dextrose 5%-1/2 Ns) 1,000 mls @ 150 mls/hr IV ASDIRECTED [facility] Last Admin: 08/03/16 17:55 Dose: 150 mls/hr Metoclopramide HCl (Reglan) 10 mg IVPUSH Q6H PRN PRN Reason: NAUSEA Naloxone HCl (Narcan) 0.1 mg IVPUSH Q5M PRN PRN Reason: RESP RATE LESS THAN 6/MINUTE Ondansetron HCl (Zofran) 4 mg IVPUSH Q6H PRN PRN Reason: Nausea/Vomiting Last Admin: 08/02/16 00:37 Dose: 4 mg Pantoprazole Sodium (Protonix Iv) 40 mg IVPUSH Q12H [facility] Last Admin: 08/03/16 17:40 Dose: 40 mg Prochlorperazine Edisylate (Compazine) 5 mg IVPUSH Q6H PRN PRN Reason: Nausea/Vomiting Last Admin: 08/02/16 02:57 Dose: 5 mg Sodium Chloride (Saline Flush) 10 ml FLUSH ASDIRECTED PRN PRN Reason: Keep Vein Open Discontinued Medications Acetaminophen/Codeine Phosphate (Tylenol With Codeine No.3 300mg/30mg) 1 - 2 tab PO Q4H PRN PRN Reason: Pain Last Admin: 07/31/16 21:29 Dose: 2 tab Bisacodyl (Dulcolax) 10 mg PO ONETIME ONE Stop: 07/30/16 09:01 Last Admin: 07/30/16 12:52 Dose: 10 mg Bisacodyl (Dulcolax) 10 mg PO ONETIME ONE Stop: 07/30/16 20:01 Last Admin: 07/30/16 20:40 Dose: 10 mg Cefoxitin Sodium (Mefoxin) Confirm Administered Dose 2 gm .ROUTE .STK-MED ONE Stop: 08/02/16 12:12 Dexamethasone (Dexamethasone) Confirm Administered Dose 4 mg .ROUTE .STK-MED ONE Stop: 08/02/16 09:37 Ephedrine Sulfate (Ephedrine Sulfate) Confirm Administered Dose 50 mg .ROUTE .STK-MED ONE Stop: 08/02/16 12:15 Fentanyl (Sublimaze) 50 mcg IVPUSH ONETIME ONE Stop: 07/30/16 03:49 Last Admin: 07/30/16 04:07 Dose: 50 mcg Fentanyl (Sublimaze) 100 mcg .ROUTE .STK-MED ONE Stop: 07/31/16 10:01 Fentanyl (Sublimaze) Confirm Administered Dose 250 mcg .ROUTE .STK-MED ONE Stop: 08/02/16 09:36 Fentanyl (Sublimaze) Confirm Administered Dose 100 mcg .ROUTE .STK-MED ONE Stop: 08/02/16 12:03 Furosemide (Lasix) 10 mg PO DAILY [facility] Last Admin: 08/02/16 09:10 Dose: Not Given Glycopyrrolate () Confirm Administered Dose 1 mg .ROUTE .STK-MED ONE Stop: 08/02/16 09:37 Hydromorphone HCl (Dilaudid) 0.5 mg IVPUSH Q1H PRN PRN Reason: Pain Last Admin: 08/02/16 06:07 Dose: 0.5 mg Hydromorphone HCl (Dilaudid) 0.5 mg IVPUSH Q30M PRN PRN Reason: Pain Last Admin: 08/02/16 10:55 Dose: 0.5 mg Lactated Ringer's (Ringers, Lactated) 1,000 mls @ 999 mls/hr IV BOLUS ONE Stop: 07/30/16 04:47 Last Admin: 07/30/16 04:04 Dose: 999 mls/hr Dextrose/Sodium Chloride (Dextrose 5%-Normal Saline) 1,000 mls @ 75 mls/hr IV ASDIRECTED [facility] Last Admin: 08/02/16 02:31 Dose: 75 mls/hr Potassium Chloride 20 meq/Lidocaine HCl 2 ml/ Sodium Chloride 112 mls @ 56 mls/ hr IV Q2H [facility] Stop: 08/01/16 18:59 Last Admin: 08/01/16 16:45 Dose: 56 mls/hr Sodium Chloride (Normal Saline) Confirm Administered Dose 10 mls @ as directed .ROUTE .STK-MED ONE Stop: 08/02/16 12:03 Lactated Ringer's (Ringers, Lactated) Confirm Administered Dose 1,000 mls @ as directed .ROUTE .STK-MED ONE Stop: 08/02/16 12:17 Lactated Ringer's (Ringers, Lactated) Confirm Administered Dose 1,000 mls @ as directed .ROUTE .STK-MED ONE Stop: 08/02/16 14:02 Potassium Chloride/Dextrose/Sod Cl (D5 1/2 Ns W/ 20 Meq/L Kcl) 1,000 mls @ 150 mls/hr IV ASDIRECTED [facility] Last Admin: 08/03/16 07:24 Dose: 125 mls/hr Cefoxitin Sodium 2 gm/ Sodium (Chloride) 50 mls @ 100 mls/hr IV Q8H [facility] Stop: 08/03/16 04:29 Last Admin: 08/03/16 05:37 Dose: 100 mls/hr Lactated Ringer's (Ringers, Lactated) 250 mls @ 250 mls/hr IV BOLUS ONE Stop: 08/02/16 17:21 Last Admin: 08/02/16 16:30 Dose: 250 mls/hr Hetastarch/Sodium Chloride (Hetastarch 6% In Normal Saline) 500 mls @ 500 mls/ hr IV ONETIME ONE Stop: 08/02/16 19:47 Last Admin: 08/02/16 19:11 Dose: 500 mls/hr Lactated Ringer's (Ringers, Lactated) 250 mls @ 250 mls/hr IV BOLUS ONE Stop: 08/03/16 01:08 Last Admin: 08/03/16 00:29 Dose: 250 mls/hr Lorazepam (Ativan) 0.5 mg IVPUSH ONETIME ONE Stop: 07/30/16 03:49 Last Admin: 07/30/16 04:12 Dose: 0.5 mg Midazolam HCl (Versed 1 Mg/Ml) 2 mg .ROUTE .STK-MED ONE Stop: 07/31/16 10:01 Neostigmine Methylsulfate (Neostigmine) Confirm Administered Dose 5 mg .ROUTE .[facility]-MED ONE Stop: 08/02/16 09:37 Ondansetron HCl (Zofran) Confirm Administered Dose 4 mg .ROUTE .[facility]-MED ONE Stop: 08/02/16 09:37 Pantoprazole Sodium (Protonix) 40 mg PO BIDAC [facility] Last Admin: 08/02/16 16:40 Dose: Not Given Polyethylene Glycol (Miralax) 238 gm PO ONETIME ONE Stop: 07/30/16 17:01 Last Admin: 07/30/16 17:31 Dose: 238 gm Potassium Chloride (Klor-Con M20) 40 meq PO ONETIME ONE Stop: 08/01/16 15:01 Last Admin: 08/01/16 14:03 Dose: 40 meq Propofol (Diprivan 20 Ml) 200 mg .ROUTE .[facility]-MED ONE Stop: 07/31/16 10:01 Propofol (Diprivan 20 Ml) 200 mg .ROUTE .[facility]-MED ONE Stop: 07/31/16 10:01 Propofol (Diprivan 20 Ml) Confirm Administered Dose 200 mg .ROUTE .[facility]-MED ONE Stop: 08/02/16 09:37 Rocuronium [place] (Zemuron) Confirm Administered Dose 50 mg .ROUTE .[facility]-MED ONE Stop: 08/02/16 09:37 Scopolamine (Transderm-Scop) Confirm Administered Dose 1.5 mg .ROUTE .[facility]-MED ONE Stop: 08/02/16 09:37 Senna (Senna) 17.2 mg PO BEDTIME [facility] Last Admin: 08/01/16 20:38 Dose: 17.2 mg Sodium Chloride (Saline Flush) 10 ml FLUSH ASDIRECTED PRN PRN Reason: Keep Vein Open Last Admin: 07/30/16 04:00 Dose: 10 ml Succinylcholine Chloride (Succinylcholine In Ns Pf) Confirm Administered Dose 200 mg .ROUTE .[facility]-MED ONE Stop: 08/02/16 09:37 Tamsulosin HCl (Flomax) 0.4 mg PO DAILY [facility] Last Admin: 08/02/16 09:10 Dose: Not Given Trazodone HCl (Trazodone) 50 mg PO BEDTIME [facility] Last Admin: 08/01/16 20:45 Dose: 50 mg - Exam General: alert, oriented HEENT: Pupils equal, Pupils reactive, EOMI, Mucous membr. moist/pink Neck: supple Lungs: Clear to auscultation, Normal respiratory effort Cardiovascular: Regular Rate Abdomen: tenderness Extremities: no edema Peripheral Pulses: 1+: Radial (L), Radial (R) - Problem List Review Problem List Initiated/Reviewed/Updated: Yes - Plan Plan:: Assessment/plan: #1. Tumor mass with lymph nodes. WBC is up to 21,000 and Hb dropped to 8.6. He has no fever. WBC pending tomorrow. #2. Hyperlipidemia: On medication #3. BPH: #4. Insomnia: Uses Trazodone. #5. Anemia: Hb 9.8 #6. CRF: Creatinine is 1.5 with eGFR 38. #7. Obesity #8. K+ normal Status post surgery condition stable.
[2016-08-04] MEDS: Acetaminophen 1,000 MG in Premix Bag 1 BAG IV PRN ×2 (00:10→13:49)
[2016-08-04] MEDS: Dextrose 5%-0.45% NaCl 1,000 ML IV SCH ×3 (00:15→22:20)
[2016-08-04] MEDS: Pantoprazole 40 MG Vial IVPUSH SCH ×2 (06:14→18:18)
[2016-08-04] MEDS ORDERED: Lidocaine 1% with EPINEPHrine 1:100,000 50 ML MDV ONE (07:03)
[2016-08-04] MEDS ORDERED: Bupivacaine 0.5% 50 ML MDV ONE (07:03)
[2016-08-04] MEDS: fentaNYL 2,500 MCG in Sodium Chloride 0.9% 200 ML EPIDUR SCH (07:45)
--- NOTE | 2016-08-04 09:18 | PCM.SURGPN ---
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 ) - Review of Systems General: Reports: No Symptoms HEENT: Reports: no symptoms Pulmonary: Reports: no symptoms Cardiovascular: Reports: No Symptoms Gastrointestinal: Reports: No symptoms, Other (Thirsty.) Genitourinary: Reports: no symptoms, other (Bran in place) Musculoskeletal: Reports: no symptoms Skin: Reports: no symptoms Neurological: Reports: No Symptoms Psychiatric: Reports: no symptoms - Patient Data Vitals - most recent: Last Vital Signs Temp 98.0 F 08/04/16 07:00 Pulse 74 08/04/16 07:00 Resp 18 08/04/16 07:00 BP 121/59 L 08/04/16 07:00 Pulse Ox 98 08/04/16 07:49 Weight - most recent: 187 lb 14.4 oz I&O - last 24 hours: Intake & Output 08/03/16 08/04/16 08/04/16 22:59 06:59 14:59 Intake Total 1058 1874 0 Output Total 1905 1475 Balance -847 399 0 Lab Results last 24 hrs: Laboratory Results - last 24 hr 08/01/16 08/01/16 08/04/16 Range/Units 05:00 05:00 05:47 WBC 21.2 H (4.5-11.0) K/uL RBC 3.41 L (4.30-5.90) M/uL Hgb 7.9 L (12.0-15.0) g/dL Hct 24.5 L (40.0-54.0) % MCV 72 L (80-98) fL MCH 23 L (27-31) pg MCHC 32 (32-36) % Plt Count 323 (150-400) K/uL Carcinoembryonic Ag 3.1 (0.0-3.7) ng/mL Blood Type O POSITIVE Gel Antibody Screen Negative Crossmatch See Detail Yo Results last 24 hrs: Microbiology 08/02/16 12:54 Gram Stain - Final Peritoneal Fluid Wound Culture - Preliminary NO GROWTH AFTER 1 DAY Anaerobic Culture - Preliminary NO GROWTH AFTER 1 DAY Med Orders - Current: Current Medications Diphenhydramine HCl (Benadryl) 25 - 50 mg IVPUSH Q4H PRN PRN Reason: ITCH Furosemide (Lasix) 10 mg IVPUSH DAILY [facility] Last Admin: 08/03/16 09:13 Dose: 10 mg Fentanyl 2,500 mcg/ Sodium (Chloride) 250 mls @ 0 mls/hr EPIDUR TITRATE [facility]; Titrate PRN Reason: Protocol Last Admin: 08/04/16 07:45 Dose: 6 ml/hr, 6 mls/hr Dextrose/Sodium Chloride (Dextrose 5%-1/2 Ns) 1,000 mls @ 150 mls/hr IV ASDIRECTED [facility] Last Admin: 08/04/16 07:43 Dose: 150 mls/hr Acetaminophen 1,000 mg/ Premix 100 mls @ 400 mls/hr IV Q6H PRN PRN Reason: Pain Stop: 08/04/16 23:53 Last Admin: 08/04/16 00:10 Dose: 400 mls/hr Metoclopramide HCl (Reglan) 10 mg IVPUSH Q6H PRN PRN Reason: NAUSEA Naloxone HCl (Narcan) 0.1 mg IVPUSH Q5M PRN PRN Reason: RESP RATE LESS THAN 6/MINUTE Ondansetron HCl (Zofran) 4 mg IVPUSH Q6H PRN PRN Reason: Nausea/Vomiting Last Admin: 08/02/16 00:37 Dose: 4 mg Pantoprazole Sodium (Protonix Iv) 40 mg IVPUSH Q12H [facility] Last Admin: 08/04/16 06:14 Dose: 40 mg Prochlorperazine Edisylate (Compazine) 5 mg IVPUSH Q6H PRN PRN Reason: Nausea/Vomiting Last Admin: 08/02/16 02:57 Dose: 5 mg Sodium Chloride (Saline Flush) 10 ml FLUSH ASDIRECTED PRN PRN Reason: Keep Vein Open Discontinued Medications Acetaminophen/Codeine Phosphate (Tylenol With Codeine No.3 300mg/30mg) 1 - 2 tab PO Q4H PRN PRN Reason: Pain Last Admin: 07/31/16 21:29 Dose: 2 tab Bisacodyl (Dulcolax) 10 mg PO ONETIME ONE Stop: 07/30/16 09:01 Last Admin: 07/30/16 12:52 Dose: 10 mg Bisacodyl (Dulcolax) 10 mg PO ONETIME ONE Stop: 07/30/16 20:01 Last Admin: 07/30/16 20:40 Dose: 10 mg Cefoxitin Sodium (Mefoxin) Confirm Administered Dose 2 gm .ROUTE .STK-MED ONE Stop: 08/02/16 12:12 Dexamethasone (Dexamethasone) Confirm Administered Dose 4 mg .ROUTE .STK-MED ONE Stop: 08/02/16 09:37 Ephedrine Sulfate (Ephedrine Sulfate) Confirm Administered Dose 50 mg .ROUTE .STK-MED ONE Stop: 08/02/16 12:15 Fentanyl (Sublimaze) 50 mcg IVPUSH ONETIME ONE Stop: 07/30/16 03:49 Last Admin: 07/30/16 04:07 Dose: 50 mcg Fentanyl (Sublimaze) 100 mcg .ROUTE .STK-MED ONE Stop: 07/31/16 10:01 Fentanyl (Sublimaze) Confirm Administered Dose 250 mcg .ROUTE .STK-MED ONE Stop: 08/02/16 09:36 Fentanyl (Sublimaze) Confirm Administered Dose 100 mcg .ROUTE .STK-MED ONE Stop: 08/02/16 12:03 Furosemide (Lasix) 10 mg PO DAILY [facility] Last Admin: 08/02/16 09:10 Dose: Not Given Glycopyrrolate () Confirm Administered Dose 1 mg .ROUTE .STK-MED ONE Stop: 08/02/16 09:37 Hydromorphone HCl (Dilaudid) 0.5 mg IVPUSH Q1H PRN PRN Reason: Pain Last Admin: 08/02/16 06:07 Dose: 0.5 mg Hydromorphone HCl (Dilaudid) 0.5 mg IVPUSH Q30M PRN PRN Reason: Pain Last Admin: 08/02/16 10:55 Dose: 0.5 mg Lactated Ringer's (Ringers, Lactated) 1,000 mls @ 999 mls/hr IV BOLUS ONE Stop: 07/30/16 04:47 Last Admin: 07/30/16 04:04 Dose: 999 mls/hr Dextrose/Sodium Chloride (Dextrose 5%-Normal Saline) 1,000 mls @ 75 mls/hr IV ASDIRECTED [facility] Last Admin: 08/02/16 02:31 Dose: 75 mls/hr Potassium Chloride 20 meq/Lidocaine HCl 2 ml/ Sodium Chloride 112 mls @ 56 mls/ hr IV Q2H [facility] Stop: 08/01/16 18:59 Last Admin: 08/01/16 16:45 Dose: 56 mls/hr Sodium Chloride (Normal Saline) Confirm Administered Dose 10 mls @ as directed .ROUTE .STK-MED ONE Stop: 08/02/16 12:03 Lactated Ringer's (Ringers, Lactated) Confirm Administered Dose 1,000 mls @ as directed .ROUTE .STK-MED ONE Stop: 08/02/16 12:17 Lactated Ringer's (Ringers, Lactated) Confirm Administered Dose 1,000 mls @ as directed .ROUTE .STK-MED ONE Stop: 08/02/16 14:02 Potassium Chloride/Dextrose/Sod Cl (D5 1/2 Ns W/ 20 Meq/L Kcl) 1,000 mls @ 150 mls/hr IV ASDIRECTED [facility] Last Admin: 08/03/16 07:24 Dose: 125 mls/hr Cefoxitin Sodium 2 gm/ Sodium (Chloride) 50 mls @ 100 mls/hr IV Q8H [facility] Stop: 08/03/16 04:29 Last Admin: 08/03/16 05:37 Dose: 100 mls/hr Lactated Ringer's (Ringers, Lactated) 250 mls @ 250 mls/hr IV BOLUS ONE Stop: 08/02/16 17:21 Last Admin: 08/02/16 16:30 Dose: 250 mls/hr Hetastarch/Sodium Chloride (Hetastarch 6% In Normal Saline) 500 mls @ 500 mls/ hr IV ONETIME ONE Stop: 08/02/16 19:47 Last Admin: 08/02/16 19:11 Dose: 500 mls/hr Lactated Ringer's (Ringers, Lactated) 250 mls @ 250 mls/hr IV BOLUS ONE Stop: 08/03/16 01:08 Last Admin: 08/03/16 00:29 Dose: 250 mls/hr Lorazepam (Ativan) 0.5 mg IVPUSH ONETIME ONE Stop: 07/30/16 03:49 Last Admin: 07/30/16 04:12 Dose: 0.5 mg Midazolam HCl (Versed 1 Mg/Ml) 2 mg .ROUTE .[facility]-MED ONE Stop: 07/31/16 10:01 Neostigmine Methylsulfate (Neostigmine) Confirm Administered Dose 5 mg .ROUTE .[facility]-MED ONE Stop: 08/02/16 09:37 Ondansetron HCl (Zofran) Confirm Administered Dose 4 mg .ROUTE .[facility]-MED ONE Stop: 08/02/16 09:37 Pantoprazole Sodium (Protonix) 40 mg PO BIDAC [facility] Last Admin: 08/02/16 16:40 Dose: Not Given Polyethylene Glycol (Miralax) 238 gm PO ONETIME ONE Stop: 07/30/16 17:01 Last Admin: 07/30/16 17:31 Dose: 238 gm Potassium Chloride (Klor-Con M20) 40 meq PO ONETIME ONE Stop: 08/01/16 15:01 Last Admin: 08/01/16 14:03 Dose: 40 meq Propofol (Diprivan 20 Ml) 200 mg .ROUTE .[facility]-MED ONE Stop: 07/31/16 10:01 Propofol (Diprivan 20 Ml) 200 mg .ROUTE .[facility]-MED ONE Stop: 07/31/16 10:01 Propofol (Diprivan 20 Ml) Confirm Administered Dose 200 mg .ROUTE .[facility]-MED ONE Stop: 08/02/16 09:37 Rocuronium [place] (Zemuron) Confirm Administered Dose 50 mg .ROUTE .STK-MED ONE Stop: 08/02/16 09:37 Scopolamine (Transderm-Scop) Confirm Administered Dose 1.5 mg .ROUTE .[facility] ONE Stop: 08/02/16 09:37 Senna (Senna) 17.2 mg PO BEDTIME [facility] Last Admin: 08/01/16 20:38 Dose: 17.2 mg Sodium Chloride (Saline Flush) 10 ml FLUSH ASDIRECTED PRN PRN Reason: Keep Vein Open Last Admin: 07/30/16 04:00 Dose: 10 ml Succinylcholine Chloride (Succinylcholine In Ns Pf) Confirm Administered Dose 200 mg .ROUTE .STK-MED ONE Stop: 08/02/16 09:37 Tamsulosin HCl (Flomax) 0.4 mg PO DAILY [facility] Last Admin: 08/02/16 09:10 Dose: Not Given Trazodone HCl (Trazodone) 50 mg PO BEDTIME [facility] Last Admin: 08/01/16 20:45 Dose: 50 mg - Exam Wound/Incisions: dressing dry and intact, no drainage General: alert, oriented, cooperative, no acute distress Lungs: Clear to auscultation, Normal respiratory effort Cardiovascular: Regular Rate, Regular Rhythm Abdomen: bowel sounds present (Hypoactive.), soft, no tenderness, no distension , abnormal bowel sounds (Hypoactive.) Extremities: no edema Skin: warm, dry, intact Neurological: no new focal deficit Psy/Mental Status: alert, normal affect, normal mood - Problem List Review Problem List Initiated/Reviewed/Updated: Yes - My Orders Last 24 Hours: Active Orders 24 hr Category Date Time Status CBC W/O DIFF,HEMOGRAM [HEME] DAILY Lab 08/05/16 05:11 Ordered CBC W/O DIFF,HEMOGRAM [HEME] DAILY Lab 08/06/16 05:11 Ordered CBC W/O DIFF,HEMOGRAM [HEME] DAILY Lab 08/07/16 05:11 Ordered CBC W/O DIFF,HEMOGRAM [HEME] DAILY Lab 08/08/16 05:11 Ordered Acetaminophen [Ofirmev] 1,000 mg Med 08/03/16 23:52 Active Premix Bag 1 bag IV Q6H Dextrose 5%-0.45% NaCl [Dextrose 5%-1/2 NS] 1,000 ml Med 08/03/16 10:30 Active IV ASDIRECTED Furosemide [Lasix] Med 08/03/16 09:00 Active 10 mg IVPUSH DAILY Nasogastric Orogastric Tube Removal [OM.PC] Routine Oth 08/03/16 10:28 Ordered Transfuse Red Blood Cells [COMM] Urgent Oth 08/04/16 07:19 Ordered Medication Orders Diphenhydramine HCl (Benadryl) 25 - 50 mg IVPUSH Q4H PRN PRN Reason: ITCH Furosemide (Lasix) 10 mg IVPUSH DAILY [facility] Last Admin: 08/03/16 09:13 Dose: 10 mg Fentanyl 2,500 mcg/ Sodium (Chloride) 250 mls @ 0 mls/hr EPIDUR TITRATE [facility]; Titrate PRN Reason: Protocol Last Admin: 08/04/16 07:45 Dose: 6 ml/hr, 6 mls/hr Titration: 08/04/16 07:45 Dose: 6 ml/hr, 6 mls/hr Admin: 08/02/16 16:36 Dose: 6 ml/hr, 6 mls/hr Dextrose/Sodium Chloride (Dextrose 5%-1/2 Ns) 1,000 mls @ 150 mls/hr IV ASDIRECTED [facility] Last Admin: 08/04/16 07:43 Dose: 150 mls/hr Infusion: 08/04/16 06:56 Dose: 150 mls/hr Admin: 08/04/16 00:15 Dose: 150 mls/hr Infusion: 08/04/16 00:15 Dose: 150 mls/hr Admin: 08/03/16 17:55 Dose: 150 mls/hr Infusion: 08/03/16 17:51 Dose: 150 mls/hr Admin: 08/03/16 11:10 Dose: 150 mls/hr Acetaminophen 1,000 mg/ Premix 100 mls @ 400 mls/hr IV Q6H PRN PRN Reason: Pain Stop: 08/04/16 23:53 Last Admin: 08/04/16 00:10 Dose: 400 mls/hr Metoclopramide HCl (Reglan) 10 mg IVPUSH Q6H PRN PRN Reason: NAUSEA Naloxone HCl (Narcan) 0.1 mg IVPUSH Q5M PRN PRN Reason: RESP RATE LESS THAN 6/MINUTE Ondansetron HCl (Zofran) 4 mg IVPUSH Q6H PRN PRN Reason: Nausea/Vomiting Last Admin: 08/02/16 00:37 Dose: 4 mg Pantoprazole Sodium (Protonix Iv) 40 mg IVPUSH Q12H [facility] Last Admin: 08/04/16 06:14 Dose: 40 mg Admin: 08/03/16 17:40 Dose: 40 mg Admin: 08/03/16 05:37 Dose: 40 mg Admin: 08/02/16 17:41 Dose: 40 mg Prochlorperazine Edisylate (Compazine) 5 mg IVPUSH Q6H PRN PRN Reason: Nausea/Vomiting Last Admin: 08/02/16 02:57 Dose: 5 mg Sodium Chloride (Saline Flush) 10 ml FLUSH ASDIRECTED PRN PRN Reason: Keep Vein Open - Assessment Assessment (Free Text/Narrative):: His Hgb is low enough that we will transfuse him. He is tolerating his NG being out. - Plan Plan (Free Text/Narrative):: Transfuse 2 units pRBC. Lasix 10 mg IV between units. Check Hgb after last unit. Clear liquid diet. His DPC is cancelled today, reschedule to follow tomorrow.
[2016-08-04] MEDS: Furosemide 20 MG/2 ML VIAL IVPUSH SCH (09:21)
--- NOTE | 2016-08-04 10:08 | PCM.PN ---
- General Info Date of Service: 08/04/16 Subjective Update: He is having more abd. pain than yesterday and increased weakness. - Review of Systems General: Reports: Weakness, Fatigue HEENT: Reports: no symptoms Pulmonary: Reports: no symptoms Gastrointestinal: Reports: Abdominal pain Genitourinary: Reports: no symptoms Musculoskeletal: Reports: no symptoms Skin: Reports: no symptoms Neurological: Reports: No Symptoms Psychiatric: Reports: no symptoms - Patient Data Vitals - most recent: Last Vital Signs Temp 97.8 F 08/04/16 09:28 Pulse 67 08/04/16 09:28 Resp 16 08/04/16 09:28 BP 105/58 L 08/04/16 09:28 Pulse Ox 95 08/04/16 09:28 Weight - most recent: 187 lb 14.4 oz I&O - last 24 hours: Intake & Output 08/03/16 08/04/16 08/04/16 22:59 06:59 14:59 Intake Total 1058 1874 0 Output Total 1905 1475 900 Balance -847 399 -900 Lab Results last 24 hrs: Laboratory Results - last 24 hr 08/01/16 08/01/16 08/04/16 Range/Units 05:00 05:00 05:47 WBC 21.2 H (4.5-11.0) K/uL RBC 3.41 L (4.30-5.90) M/uL Hgb 7.9 L (12.0-15.0) g/dL Hct 24.5 L (40.0-54.0) % MCV 72 L (80-98) fL MCH 23 L (27-31) pg MCHC 32 (32-36) % Plt Count 323 (150-400) K/uL Carcinoembryonic Ag 3.1 (0.0-3.7) ng/mL Blood Type O POSITIVE Gel Antibody Screen Negative Crossmatch See Detail Yo Results last 24 hrs: Microbiology 08/02/16 12:54 Gram Stain - Final Peritoneal Fluid Wound Culture - Preliminary NO GROWTH AFTER 1 DAY Anaerobic Culture - Preliminary NO GROWTH AFTER 1 DAY Med Orders - Current: Current Medications Diphenhydramine HCl (Benadryl) 25 - 50 mg IVPUSH Q4H PRN PRN Reason: ITCH Furosemide (Lasix) 10 mg IVPUSH DAILY [facility] Last Admin: 08/04/16 09:21 Dose: 10 mg Furosemide (Lasix) 10 mg IVPUSH ONETIME ONE Stop: 08/04/16 11:01 Fentanyl 2,500 mcg/ Sodium (Chloride) 250 mls @ 0 mls/hr EPIDUR TITRATE [facility]; Titrate PRN Reason: Protocol Last Admin: 08/04/16 07:45 Dose: 6 ml/hr, 6 mls/hr Dextrose/Sodium Chloride (Dextrose 5%-1/2 Ns) 1,000 mls @ 150 mls/hr IV ASDIRECTED [facility] Last Admin: 08/04/16 07:43 Dose: 150 mls/hr Acetaminophen 1,000 mg/ Premix 100 mls @ 400 mls/hr IV Q6H PRN PRN Reason: Pain Stop: 08/04/16 23:53 Last Admin: 08/04/16 00:10 Dose: 400 mls/hr Metoclopramide HCl (Reglan) 10 mg IVPUSH Q6H PRN PRN Reason: NAUSEA Naloxone HCl (Narcan) 0.1 mg IVPUSH Q5M PRN PRN Reason: RESP RATE LESS THAN 6/MINUTE Ondansetron HCl (Zofran) 4 mg IVPUSH Q6H PRN PRN Reason: Nausea/Vomiting Last Admin: 08/02/16 00:37 Dose: 4 mg Pantoprazole Sodium (Protonix Iv) 40 mg IVPUSH Q12H [facility] Last Admin: 08/04/16 06:14 Dose: 40 mg Prochlorperazine Edisylate (Compazine) 5 mg IVPUSH Q6H PRN PRN Reason: Nausea/Vomiting Last Admin: 08/02/16 02:57 Dose: 5 mg Sodium Chloride (Saline Flush) 10 ml FLUSH ASDIRECTED PRN PRN Reason: Keep Vein Open Discontinued Medications Acetaminophen/Codeine Phosphate (Tylenol With Codeine No.3 300mg/30mg) 1 - 2 tab PO Q4H PRN PRN Reason: Pain Last Admin: 07/31/16 21:29 Dose: 2 tab Bisacodyl (Dulcolax) 10 mg PO ONETIME ONE Stop: 07/30/16 09:01 Last Admin: 07/30/16 12:52 Dose: 10 mg Bisacodyl (Dulcolax) 10 mg PO ONETIME ONE Stop: 07/30/16 20:01 Last Admin: 07/30/16 20:40 Dose: 10 mg Cefoxitin Sodium (Mefoxin) Confirm Administered Dose 2 gm .ROUTE .STK-MED ONE Stop: 08/02/16 12:12 Dexamethasone (Dexamethasone) Confirm Administered Dose 4 mg .ROUTE .STK-MED ONE Stop: 08/02/16 09:37 Ephedrine Sulfate (Ephedrine Sulfate) Confirm Administered Dose 50 mg .ROUTE .STK-MED ONE Stop: 08/02/16 12:15 Fentanyl (Sublimaze) 50 mcg IVPUSH ONETIME ONE Stop: 07/30/16 03:49 Last Admin: 07/30/16 04:07 Dose: 50 mcg Fentanyl (Sublimaze) 100 mcg .ROUTE .STK-MED ONE Stop: 07/31/16 10:01 Fentanyl (Sublimaze) Confirm Administered Dose 250 mcg .ROUTE .STK-MED ONE Stop: 08/02/16 09:36 Fentanyl (Sublimaze) Confirm Administered Dose 100 mcg .ROUTE .STK-MED ONE Stop: 08/02/16 12:03 Furosemide (Lasix) 10 mg PO DAILY [facility] Last Admin: 08/02/16 09:10 Dose: Not Given Glycopyrrolate () Confirm Administered Dose 1 mg .ROUTE .STK-MED ONE Stop: 08/02/16 09:37 Hydromorphone HCl (Dilaudid) 0.5 mg IVPUSH Q1H PRN PRN Reason: Pain Last Admin: 08/02/16 06:07 Dose: 0.5 mg Hydromorphone HCl (Dilaudid) 0.5 mg IVPUSH Q30M PRN PRN Reason: Pain Last Admin: 08/02/16 10:55 Dose: 0.5 mg Lactated Ringer's (Ringers, Lactated) 1,000 mls @ 999 mls/hr IV BOLUS ONE Stop: 07/30/16 04:47 Last Admin: 07/30/16 04:04 Dose: 999 mls/hr Dextrose/Sodium Chloride (Dextrose 5%-Normal Saline) 1,000 mls @ 75 mls/hr IV ASDIRECTED [facility] Last Admin: 08/02/16 02:31 Dose: 75 mls/hr Potassium Chloride 20 meq/Lidocaine HCl 2 ml/ Sodium Chloride 112 mls @ 56 mls/ hr IV Q2H [facility] Stop: 08/01/16 18:59 Last Admin: 08/01/16 16:45 Dose: 56 mls/hr Sodium Chloride (Normal Saline) Confirm Administered Dose 10 mls @ as directed .ROUTE .STK-MED ONE Stop: 08/02/16 12:03 Lactated Ringer's (Ringers, Lactated) Confirm Administered Dose 1,000 mls @ as directed .ROUTE .STK-MED ONE Stop: 08/02/16 12:17 Lactated Ringer's (Ringers, Lactated) Confirm Administered Dose 1,000 mls @ as directed .ROUTE .STK-MED ONE Stop: 08/02/16 14:02 Potassium Chloride/Dextrose/Sod Cl (D5 1/2 Ns W/ 20 Meq/L Kcl) 1,000 mls @ 150 mls/hr IV ASDIRECTED [facility] Last Admin: 08/03/16 07:24 Dose: 125 mls/hr Cefoxitin Sodium 2 gm/ Sodium (Chloride) 50 mls @ 100 mls/hr IV Q8H [facility] Stop: 08/03/16 04:29 Last Admin: 08/03/16 05:37 Dose: 100 mls/hr Lactated Ringer's (Ringers, Lactated) 250 mls @ 250 mls/hr IV BOLUS ONE Stop: 08/02/16 17:21 Last Admin: 08/02/16 16:30 Dose: 250 mls/hr Hetastarch/Sodium Chloride (Hetastarch 6% In Normal Saline) 500 mls @ 500 mls/ hr IV ONETIME ONE Stop: 08/02/16 19:47 Last Admin: 08/02/16 19:11 Dose: 500 mls/hr Lactated Ringer's (Ringers, Lactated) 250 mls @ 250 mls/hr IV BOLUS ONE Stop: 08/03/16 01:08 Last Admin: 08/03/16 00:29 Dose: 250 mls/hr Lorazepam (Ativan) 0.5 mg IVPUSH ONETIME ONE Stop: 07/30/16 03:49 Last Admin: 07/30/16 04:12 Dose: 0.5 mg Midazolam HCl (Versed 1 Mg/Ml) 2 mg .ROUTE .ST[facility]-MED ONE Stop: 07/31/16 10:01 Neostigmine Methylsulfate (Neostigmine) Confirm Administered Dose 5 mg .ROUTE .[facility]-MED ONE Stop: 08/02/16 09:37 Ondansetron HCl (Zofran) Confirm Administered Dose 4 mg .ROUTE .STK-MED ONE Stop: 08/02/16 09:37 Pantoprazole Sodium (Protonix) 40 mg PO BIDAC [facility] Last Admin: 08/02/16 16:40 Dose: Not Given Polyethylene Glycol (Miralax) 238 gm PO ONETIME ONE Stop: 07/30/16 17:01 Last Admin: 07/30/16 17:31 Dose: 238 gm Potassium Chloride (Klor-Con M20) 40 meq PO ONETIME ONE Stop: 08/01/16 15:01 Last Admin: 08/01/16 14:03 Dose: 40 meq Propofol (Diprivan 20 Ml) 200 mg .ROUTE .[facility]-MED ONE Stop: 07/31/16 10:01 Propofol (Diprivan 20 Ml) 200 mg .ROUTE .[facility]-MED ONE Stop: 07/31/16 10:01 Propofol (Diprivan 20 Ml) Confirm Administered Dose 200 mg .ROUTE .[facility] ONE Stop: 08/02/16 09:37 Rocuronium [place] (Zemuron) Confirm Administered Dose 50 mg .ROUTE .[facility]-MED ONE Stop: 08/02/16 09:37 Scopolamine (Transderm-Scop) Confirm Administered Dose 1.5 mg .ROUTE .STK-MED ONE Stop: 08/02/16 09:37 Senna (Senna) 17.2 mg PO BEDTIME [facility] Last Admin: 08/01/16 20:38 Dose: 17.2 mg Sodium Chloride (Saline Flush) 10 ml FLUSH ASDIRECTED PRN PRN Reason: Keep Vein Open Last Admin: 07/30/16 04:00 Dose: 10 ml Succinylcholine Chloride (Succinylcholine In Ns Pf) Confirm Administered Dose 200 mg .ROUTE .STK-MED ONE Stop: 08/02/16 09:37 Tamsulosin HCl (Flomax) 0.4 mg PO DAILY [facility] Last Admin: 08/02/16 09:10 Dose: Not Given Trazodone HCl (Trazodone) 50 mg PO BEDTIME [facility] Last Admin: 08/01/16 20:45 Dose: 50 mg - Exam General: alert, oriented Lungs: Clear to auscultation, Normal respiratory effort Cardiovascular: Regular Rate, Regular Rhythm Abdomen: guarding, tenderness Extremities: no edema Psy/Mental Status: alert, normal affect, normal mood - Problem List Review Problem List Initiated/Reviewed/Updated: Yes - Plan Plan:: Assessment/plan: #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 WBC is up to 21,000 and Hb dropped to 7.9. He has no fever. WBC 21.200. He is receiving blood and concerned about abd infection. #2. Hyperlipidemia: On medication #3. BPH: #4. Insomnia: Uses Trazodone. #5. Anemia: Hb 7.9 #6. CRF: Creatinine not done today will check in the morning. #7. Obesity
[2016-08-04] MEDS ORDERED: Furosemide 20 MG/2 ML VIAL IVPUSH ONE (11:00)
[2016-08-05] MEDS: Acetaminophen 1,000 MG in Premix Bag 1 BAG IV PRN ×3 (00:12→15:29)
[2016-08-05] MEDS: Pantoprazole 40 MG Vial IVPUSH SCH ×2 (05:38→18:04)
[2016-08-05] MEDS: Dextrose 5%-0.45% NaCl 1,000 ML IV SCH ×2 (05:44→10:15)
[2016-08-05] MEDS ORDERED: Propofol 200 MG/20 ML SDV ONE (07:20)
[2016-08-05] MEDS ORDERED: fentaNYL 100 MCG/2 ML SDV ONE (07:21)
[2016-08-05] MEDS ORDERED: Bupivacaine 0.5% 50 ML MDV ONE (08:21)
[2016-08-05] MEDS ORDERED: Lidocaine 1% with EPINEPHrine 1:100,000 50 ML MDV ONE (08:22)
--- NOTE | 2016-08-05 10:01 | OR ---
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 PROCEDURE: Exploratory laparotomy, right hemicolectomy with primary ileotransverse colon anastomosis. ANESTHESIA: General endotracheal. INDICATION: This 81-year-old white male has had problems recently with nausea and vomiting. He attempted to undergo a prep to have a colonoscopy, this resulted in vomiting. He was admitted to the hospital a few days ago for the prep as it was not tolerated at home. Enemas were given to clear and two days ago he underwent a colonoscopy. This showed a near obstructing lesion in the right colon which confirmed the CAT scan findings. He is taken to the operating room today for a right hemicolectomy. I counseled him for surgery including risks and alternatives, and he gave informed consent to proceed. DESCRIPTION OF PROCEDURE: After adequate general endotracheal anesthesia was obtained, a Bran catheter was placed. The leg compression stockings were in place and used during the entire procedure. His abdomen was prepped and draped in the usual sterile fashion. Time-out was held. A midline incision was made from above to below the umbilicus. This was carried deep using Bovie cautery to the fascia. The fascia was incised and the underlying peritoneum was elevated and incised. The peritoneal incision was extended superiorly and inferiorly to the length of the skin incision using Bovie cautery while protecting underlying structures. We encountered some serous fluid in the abdomen which was aspirated free and sent for Gram stain and culture. Additionally it was sent for cytology. The right colon was mobilized up by taking down the peritoneal reflection. The bowel both proximally and distally was noted be distended, it was found that the tumor was at the area of the hepatic flexure just distal to it. The omentum was taken off the transverse colon by going through the avascular plane. We were able to be mobilize the tumor up. We opened the terminal ileum just proximal to the cecum and basically deflated the bowel proximally and distally. We then divided the terminal ileum proximal to the enterotomy and then divided the transverse colon well distal to the tumor. The orientation of staple lines in the terminal ileum was antimesenteric border to mesentery and in the transverse colon to end at a tinea. There were palpable nodes present in the mesentery. We divided the mesentery using vascular loads with a COLLIN, this was well away from the bowel. Additional nodes were palpable down in the periaortic area, up higher. The specimen then consisting of a portion of terminal ileum, appendix, cecum, right colon, and a portion of transverse colon along with the associated mesentery was delivered from the field. The anastomosis was then made bringing the terminal ileum to the transverse colon. We opened up the corresponding ends of each staple line and placed an 80 mm COLLIN stapler with blue load in each segment of bowel and fired it making the anastomosis to the distal end of the staple line. It was bolstered with 2- 0 silk suture. The stapler was removed and another 80 mm staple load was placed to close the opening through which the previous stapler had been placed. This last staple line was oversewn with Lembert stitches of the 3-0 GI silk, all looked well. The mesentery was closed with a running stitch of 3-0 Vicryl. Tisseel fibrin sealant was placed over the anastomosis. The abdomen was copiously irrigated with sterile water and suctioned dry. The fascia was closed with a running stitch of #2 Vicryl. The incision was irrigated and suctioned dry. Moist Kerlix was placed in the incision and a sterile dressing was applied. The plan is for a delayed primary closure in two days. The anesthesia was reversed. He was extubated and brought to the recovery room in fair condition. Wesley Boland MD /[id number] DOC
[2016-08-05] MEDS: Furosemide 20 MG/2 ML VIAL IVPUSH SCH (10:17)
[2016-08-05] MEDS ORDERED: Dextrose 5%-0.45% NaCl 1,000 ML IV SCH (11:00)
[2016-08-05] MEDS: HYDROmorphone 1 MG/ML Syringe IVPUSH PRN ×4 (11:10→21:58)
--- NOTE | 2016-08-05 14:37 | OR ---
DATE OF PROCEDURE: 08/05/2016 PREOPERATIVE DIAGNOSIS: Open skin incisions status post right hemicolectomy three days ago. POSTOPERATIVE DIAGNOSIS: Open skin incisions status post right hemicolectomy three days ago. PROCEDURE: Delayed primary closure. ANESTHESIA: IV anesthesia with monitored anesthesia care. INDICATION: This 81-year-old white male is three days status post a right hemicolectomy for a near obstructing colon mass. There was a diffuse contamination of bowel contents in the abdomen with the procedure. It was copiously washed out. We left the skin open for delayed primary closure. We plan on doing this yesterday, but his hemoglobin was too low. We transfused him. I counseled for delayed primary closure. He gave his informed consent to proceed. DESCRIPTION OF PROCEDURE: After adequate IV anesthesia was obtained, the dressings were removed. His abdomen was prepped and draped in the usual sterile fashion. The incision looked well. It was irrigated with saline and then closed with skin latonya. A sterile dressing was applied. He tolerated the procedure well and was brought to recovery room in good condition. Wesley Boland MD /[id number] DOC
--- NOTE | 2016-08-05 19:18 | PCM.PN ---
- General Info Date of Service: 08/05/16 Functional Status: Reports: pain controlled - Review of Systems General: Reports: Weakness HEENT: Reports: no symptoms Pulmonary: Reports: no symptoms Cardiovascular: Reports: No Symptoms Gastrointestinal: Reports: Decreased appetite Genitourinary: Reports: no symptoms Musculoskeletal: Reports: no symptoms Skin: Reports: no symptoms Neurological: Reports: Weakness Psychiatric: Reports: no symptoms - Patient Data Vitals - most recent: Last Vital Signs Temp 97.0 F 08/05/16 15:00 Pulse 76 08/05/16 15:00 Resp 20 08/05/16 15:00 BP 136/64 08/05/16 15:00 Pulse Ox 93 L 08/05/16 15:00 Weight - most recent: 190 lb 11.2 oz I&O - last 24 hours: Intake & Output 08/05/16 08/05/16 08/05/16 06:59 14:59 22:59 Intake Total 1780 75 890 Output Total 2000 2350 650 Balance -220 -2273 240 Lab Results last 24 hrs: Laboratory Results - last 24 hr 08/05/16 08/05/16 08/05/16 Range/Units 06:00 06:00 18:10 WBC 19.2 H 20.7 H (4.5-11.0) K/uL RBC 4.12 L 4.16 L (4.30-5.90) M/uL Hgb 9.9 L 10.1 L (12.0-15.0) g/dL Hct 29.9 L 30.3 L (40.0-54.0) % MCV 73 L 73 L (80-98) fL MCH 24 L 24 L (27-31) pg MCHC 33 33 (32-36) % Plt Count 342 358 (150-400) K/uL Sodium 135 L (140-148) mmol/L Potassium 3.9 (3.6-5.2) mmol/L Chloride 101 (100-108) mmol/L Carbon Dioxide 29 (21-32) mmol/L Anion Gap 8.9 (5.0-14.0) mmol/L BUN 14 (7-18) mg/dL Creatinine 1.3 (0.8-1.3) mg/dL Est Cr Clr Drug Dosing 46.13 mL/min Estimated GFR (MDRD) 53 L (>60) Glucose 111 H (74-106) mg/dL Calcium 7.9 L (8.5-10.1) mg/dL Total Bilirubin 1.2 H D (0.2-1.0) mg/dL AST 25 (15-37) U/L ALT 17 (12-78) U/L Alkaline Phosphatase 53 (46-116) U/L Total Protein 5.1 L (6.4-8.2) g/dL Albumin 1.7 L (3.4-5.0) g/dL Globulin 3.4 (2.3-3.5) g/dL Albumin/Globulin Ratio 0.5 L (1.2-2.2) Yo Results last 24 hrs: Microbiology 08/02/16 12:54 Gram Stain - Final Peritoneal Fluid Wound Culture - Preliminary NO GROWTH AFTER 2 DAYS Anaerobic Culture - Preliminary NO GROWTH AFTER 2 DAYS Med Orders - Current: Current Medications Diphenhydramine HCl (Benadryl) 25 - 50 mg IVPUSH Q4H PRN PRN Reason: ITCH Last Admin: 08/04/16 23:57 Dose: 25 mg Furosemide (Lasix) 10 mg IVPUSH DAILY [facility] Last Admin: 08/05/16 10:17 Dose: 10 mg Hydromorphone HCl (Dilaudid) 1 mg IVPUSH Q1H PRN PRN Reason: Abdominal Pain Last Admin: 08/05/16 18:03 Dose: 1 mg Acetaminophen 1,000 mg/ Premix 100 mls @ 400 mls/hr IV Q6H PRN PRN Reason: Pain Stop: 08/05/16 23:58 Last Admin: 08/05/16 15:29 Dose: 400 mls/hr Dextrose/Sodium Chloride (Dextrose 5%-1/2 Ns) 1,000 mls @ 25 mls/hr IV ASDIRECTED [facility] Metoclopramide HCl (Reglan) 10 mg IVPUSH Q6H PRN PRN Reason: NAUSEA Ondansetron HCl (Zofran) 4 mg IVPUSH Q6H PRN PRN Reason: Nausea/Vomiting Last Admin: 08/02/16 00:37 Dose: 4 mg Pantoprazole Sodium (Protonix Iv) 40 mg IVPUSH Q12H [facility] Last Admin: 08/05/16 18:04 Dose: 40 mg Prochlorperazine Edisylate (Compazine) 5 mg IVPUSH Q6H PRN PRN Reason: Nausea/Vomiting Last Admin: 08/02/16 02:57 Dose: 5 mg Sodium Chloride (Saline Flush) 10 ml FLUSH ASDIRECTED PRN PRN Reason: Keep Vein Open Discontinued Medications Acetaminophen/Codeine Phosphate (Tylenol With Codeine No.3 300mg/30mg) 1 - 2 tab PO Q4H PRN PRN Reason: Pain Last Admin: 07/31/16 21:29 Dose: 2 tab Bisacodyl (Dulcolax) 10 mg PO ONETIME ONE Stop: 07/30/16 09:01 Last Admin: 07/30/16 12:52 Dose: 10 mg Bisacodyl (Dulcolax) 10 mg PO ONETIME ONE Stop: 07/30/16 20:01 Last Admin: 07/30/16 20:40 Dose: 10 mg Bupivacaine HCl (Marcaine 0.5%) Confirm Administered Dose 50 ml .ROUTE .STK-MED ONE Stop: 08/05/16 08:22 Cefoxitin Sodium (Mefoxin) Confirm Administered Dose 2 gm .ROUTE .STK-MED ONE Stop: 08/02/16 12:12 Dexamethasone (Dexamethasone) Confirm Administered Dose 4 mg .ROUTE .STK-MED ONE Stop: 08/02/16 09:37 Ephedrine Sulfate (Ephedrine Sulfate) Confirm Administered Dose 50 mg .ROUTE .STK-MED ONE Stop: 08/02/16 12:15 Fentanyl (Sublimaze) 50 mcg IVPUSH ONETIME ONE Stop: 07/30/16 03:49 Last Admin: 07/30/16 04:07 Dose: 50 mcg Fentanyl (Sublimaze) 100 mcg .ROUTE .STK-MED ONE Stop: 07/31/16 10:01 Fentanyl (Sublimaze) Confirm Administered Dose 250 mcg .ROUTE .STK-MED ONE Stop: 08/02/16 09:36 Fentanyl (Sublimaze) Confirm Administered Dose 100 mcg .ROUTE .STK-MED ONE Stop: 08/02/16 12:03 Fentanyl (Sublimaze) Confirm Administered Dose 100 mcg .ROUTE .STK-MED ONE Stop: 08/05/16 07:22 Furosemide (Lasix) 10 mg PO DAILY [facility] Last Admin: 08/02/16 09:10 Dose: Not Given Furosemide (Lasix) 10 mg IVPUSH ONETIME ONE Stop: 08/04/16 11:01 Last Admin: 08/04/16 12:09 Dose: 10 mg Glycopyrrolate () Confirm Administered Dose 1 mg .ROUTE .STK-MED ONE Stop: 08/02/16 09:37 Hydromorphone HCl (Dilaudid) 0.5 mg IVPUSH Q1H PRN PRN Reason: Pain Last Admin: 08/02/16 06:07 Dose: 0.5 mg Hydromorphone HCl (Dilaudid) 0.5 mg IVPUSH Q30M PRN PRN Reason: Pain Last Admin: 08/02/16 10:55 Dose: 0.5 mg Lactated Ringer's (Ringers, Lactated) 1,000 mls @ 999 mls/hr IV BOLUS ONE Stop: 07/30/16 04:47 Last Admin: 07/30/16 04:04 Dose: 999 mls/hr Dextrose/Sodium Chloride (Dextrose 5%-Normal Saline) 1,000 mls @ 75 mls/hr IV ASDIRECTED [facility] Last Admin: 08/02/16 02:31 Dose: 75 mls/hr Potassium Chloride 20 meq/Lidocaine HCl 2 ml/ Sodium Chloride 112 mls @ 56 mls/ hr IV Q2H [facility] Stop: 08/01/16 18:59 Last Admin: 08/01/16 16:45 Dose: 56 mls/hr Fentanyl 2,500 mcg/ Sodium (Chloride) 250 mls @ 0 mls/hr EPIDUR TITRATE [facility]; Titrate PRN Reason: Protocol Last Admin: 08/04/16 07:45 Dose: 6 ml/hr, 6 mls/hr Sodium Chloride (Normal Saline) Confirm Administered Dose 10 mls @ as directed .ROUTE .STK-MED ONE Stop: 08/02/16 12:03 Lactated Ringer's (Ringers, Lactated) Confirm Administered Dose 1,000 mls @ as directed .ROUTE .STK-MED ONE Stop: 08/02/16 12:17 Lactated Ringer's (Ringers, Lactated) Confirm Administered Dose 1,000 mls @ as directed .ROUTE .STK-MED ONE Stop: 08/02/16 14:02 Potassium Chloride/Dextrose/Sod Cl (D5 1/2 Ns W/ 20 Meq/L Kcl) 1,000 mls @ 150 mls/hr IV ASDIRECTED [facility] Last Admin: 08/03/16 07:24 Dose: 125 mls/hr Cefoxitin Sodium 2 gm/ Sodium (Chloride) 50 mls @ 100 mls/hr IV Q8H [facility] Stop: 08/03/16 04:29 Last Admin: 08/03/16 05:37 Dose: 100 mls/hr Lactated Ringer's (Ringers, Lactated) 250 mls @ 250 mls/hr IV BOLUS ONE Stop: 08/02/16 17:21 Last Admin: 08/02/16 16:30 Dose: 250 mls/hr Hetastarch/Sodium Chloride (Hetastarch 6% In Normal Saline) 500 mls @ 500 mls/ hr IV ONETIME ONE Stop: 08/02/16 19:47 Last Admin: 08/02/16 19:11 Dose: 500 mls/hr Lactated Ringer's (Ringers, Lactated) 250 mls @ 250 mls/hr IV BOLUS ONE Stop: 08/03/16 01:08 Last Admin: 08/03/16 00:29 Dose: 250 mls/hr Dextrose/Sodium Chloride (Dextrose 5%-1/2 Ns) 1,000 mls @ 150 mls/hr IV ASDIRECTED [facility] Last Admin: 08/05/16 10:15 Dose: 150 mls/hr Acetaminophen 1,000 mg/ Premix 100 mls @ 400 mls/hr IV Q6H PRN PRN Reason: Pain Stop: 08/04/16 23:53 Last Admin: 08/04/16 13:49 Dose: 400 mls/hr Lidocaine/Epinephrine (Xylocaine 1% With Epinephrine 1:100,000) Confirm Administered Dose 50 ml .ROUTE .STK-MED ONE Stop: 08/05/16 08:23 Lorazepam (Ativan) 0.5 mg IVPUSH ONETIME ONE Stop: 07/30/16 03:49 Last Admin: 07/30/16 04:12 Dose: 0.5 mg Midazolam HCl (Versed 1 Mg/Ml) 2 mg .ROUTE .STK-MED ONE Stop: 07/31/16 10:01 Naloxone HCl (Narcan) 0.1 mg IVPUSH Q5M PRN PRN Reason: RESP RATE LESS THAN 6/MINUTE Neostigmine Methylsulfate (Neostigmine) Confirm Administered Dose 5 mg .ROUTE .STK-MED ONE Stop: 08/02/16 09:37 Ondansetron HCl (Zofran) Confirm Administered Dose 4 mg .ROUTE .STK-MED ONE Stop: 08/02/16 09:37 Pantoprazole Sodium (Protonix) 40 mg PO BIDAC [facility] Last Admin: 08/02/16 16:40 Dose: Not Given Polyethylene Glycol (Miralax) 238 gm PO ONETIME ONE Stop: 07/30/16 17:01 Last Admin: 07/30/16 17:31 Dose: 238 gm Potassium Chloride (Klor-Con M20) 40 meq PO ONETIME ONE Stop: 08/01/16 15:01 Last Admin: 08/01/16 14:03 Dose: 40 meq Propofol (Diprivan 20 Ml) 200 mg .ROUTE .STK-MED ONE Stop: 07/31/16 10:01 Propofol (Diprivan 20 Ml) 200 mg .ROUTE .STK-MED ONE Stop: 07/31/16 10:01 Propofol (Diprivan 20 Ml) Confirm Administered Dose 200 mg .ROUTE .ST-MED ONE Stop: 08/02/16 09:37 Propofol (Diprivan 20 Ml) Confirm Administered Dose 200 mg .ROUTE .STK-MED ONE Stop: 08/05/16 07:21 Rocuronium [place] (Zemuron) Confirm Administered Dose 50 mg .ROUTE .STK-MED ONE Stop: 08/02/16 09:37 Scopolamine (Transderm-Scop) Confirm Administered Dose 1.5 mg .ROUTE .ST-MED ONE Stop: 08/02/16 09:37 Senna (Senna) 17.2 mg PO BEDTIME [facility] Last Admin: 08/01/16 20:38 Dose: 17.2 mg Sodium Chloride (Saline Flush) 10 ml FLUSH ASDIRECTED PRN PRN Reason: Keep Vein Open Last Admin: 07/30/16 04:00 Dose: 10 ml Succinylcholine Chloride (Succinylcholine In Ns Pf) Confirm Administered Dose 200 mg .ROUTE .STK-MED ONE Stop: 08/02/16 09:37 Tamsulosin HCl (Flomax) 0.4 mg PO DAILY [facility] Last Admin: 08/02/16 09:10 Dose: Not Given Trazodone HCl (Trazodone) 50 mg PO BEDTIME [facility] Last Admin: 08/01/16 20:45 Dose: 50 mg - Exam General: alert, oriented Neck: supple Lungs: Clear to auscultation, Normal respiratory effort Cardiovascular: Regular Rate, Regular Rhythm Peripheral Pulses: 1+: Radial (L), Radial (R) Psy/Mental Status: alert, normal affect, normal mood - Problem List Review Problem List Initiated/Reviewed/Updated: Yes - Plan Plan:: Assessment/plan: #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 WBC is up to 20.7 and Hb 10.1. He has no fever. Other than the elevated WBC there is no signs of an infection. #2. Hyperlipidemia: On medication #3. BPH: #4. Insomnia: Uses Trazodone. #5. Anemia: Hb 10.1 #6. CRF: Creatinine stable. #7. Obesity
[2016-08-06] MEDS: HYDROmorphone 1 MG/ML Syringe IVPUSH PRN ×2 (00:03→03:42)
[2016-08-06] MEDS ORDERED: Ketorolac 30 MG/ML SDV IVPUSH SCH (06:00)
[2016-08-06] MEDS: Pantoprazole 40 MG Vial IVPUSH SCH ×2 (06:21→17:56)
[2016-08-06] MEDS ORDERED: Bisacodyl 10 MG Supp RECTAL PRN (06:23)
--- NOTE | 2016-08-06 06:28 | PCM.SURGPN ---
- General Info Date of Service: 08/06/16 Date of Surgery/Procedure: 08/02/16 POD#: 4 Functional Status: Reports: pain controlled, tolerating diet, urinating (Bran-- large urine output so was left in yesterday. ), incentive spirometry - Review of Systems General: Reports: No Symptoms HEENT: Reports: no symptoms Pulmonary: Reports: no symptoms Cardiovascular: Reports: No Symptoms Gastrointestinal: Reports: No symptoms, Flatus (He is not sure, but thinks he may have passed some gas. ). Denies: Nausea, Vomiting Genitourinary: Reports: no symptoms Musculoskeletal: Reports: no symptoms Skin: Reports: no symptoms Neurological: Reports: No Symptoms Psychiatric: Reports: no symptoms - Patient Data Vitals - most recent: Last Vital Signs Temp 98.3 F 08/06/16 03:00 Pulse 90 08/06/16 03:00 Resp 16 08/06/16 03:00 BP 162/78 H 08/06/16 03:00 Pulse Ox 90 L 08/06/16 03:00 Weight - most recent: 190 lb 11.2 oz I&O - last 24 hours: Intake & Output 08/05/16 08/05/16 08/06/16 14:59 22:59 06:59 Intake Total 75 890 Output Total 2350 1250 400 Balance -9086 -360 400 Lab Results last 24 hrs: Laboratory Results - last 24 hr 08/05/16 08/05/16 08/06/16 Range/Units 06:00 18:10 05:00 WBC 20.7 H 18.8 H (4.5-11.0) K/uL RBC 4.16 L 4.41 (4.30-5.90) M/uL Hgb 10.1 L 10.5 L (12.0-15.0) g/dL Hct 30.3 L 32.3 L (40.0-54.0) % MCV 73 L 73 L (80-98) fL MCH 24 L 24 L (27-31) pg MCHC 33 33 (32-36) % Plt Count 358 362 (150-400) K/uL Sodium 135 L (140-148) mmol/L Potassium 3.9 (3.6-5.2) mmol/L Chloride 101 (100-108) mmol/L Carbon Dioxide 29 (21-32) mmol/L Anion Gap 8.9 (5.0-14.0) mmol/L BUN 14 (7-18) mg/dL Creatinine 1.3 (0.8-1.3) mg/dL Est Cr Clr Drug Dosing 46.13 mL/min Estimated GFR (MDRD) 53 L (>60) Glucose 111 H (74-106) mg/dL Calcium 7.9 L (8.5-10.1) mg/dL Total Bilirubin 1.2 H D (0.2-1.0) mg/dL AST 25 (15-37) U/L ALT 17 (12-78) U/L Alkaline Phosphatase 53 (46-116) U/L Total Protein 5.1 L (6.4-8.2) g/dL Albumin 1.7 L (3.4-5.0) g/dL Globulin 3.4 (2.3-3.5) g/dL Albumin/Globulin Ratio 0.5 L (1.2-2.2) 08/06/16 Range/Units 05:00 WBC (4.5-11.0) K/uL RBC (4.30-5.90) M/uL Hgb (12.0-15.0) g/dL Hct (40.0-54.0) % MCV (80-98) fL MCH (27-31) pg MCHC (32-36) % Plt Count (150-400) K/uL Sodium 136 L (140-148) mmol/L Potassium 3.9 (3.6-5.2) mmol/L Chloride 102 (100-108) mmol/L Carbon Dioxide 30 (21-32) mmol/L Anion Gap 7.9 (5.0-14.0) mmol/L BUN 14 (7-18) mg/dL Creatinine 1.2 (0.8-1.3) mg/dL Est Cr Clr Drug Dosing 49.97 mL/min Estimated GFR (MDRD) 58 L (>60) Glucose 96 (74-106) mg/dL Calcium 7.8 L (8.5-10.1) mg/dL Total Bilirubin (0.2-1.0) mg/dL AST (15-37) U/L ALT (12-78) U/L Alkaline Phosphatase (46-116) U/L Total Protein (6.4-8.2) g/dL Albumin (3.4-5.0) g/dL Globulin (2.3-3.5) g/dL Albumin/Globulin Ratio (1.2-2.2) Yo Results last 24 hrs: Microbiology 08/02/16 12:54 Gram Stain - Final Peritoneal Fluid Wound Culture - Final NO GROWTH AFTER 3 DAYS Anaerobic Culture - Final NO GROWTH AFTER 3 DAYS Med Orders - Current: Current Medications Bisacodyl (Dulcolax) 10 mg RECTAL BID PRN PRN Reason: Constipation Diphenhydramine HCl (Benadryl) 25 - 50 mg IVPUSH Q4H PRN PRN Reason: ITCH Last Admin: 08/04/16 23:57 Dose: 25 mg Enoxaparin Sodium (Lovenox) 40 mg SUBCUT DAILY [facility] Furosemide (Lasix) 10 mg IVPUSH DAILY [facility] Last Admin: 08/05/16 10:17 Dose: 10 mg Hydromorphone HCl (Dilaudid) 1 mg IVPUSH Q1H PRN PRN Reason: Abdominal Pain Last Admin: 08/06/16 03:42 Dose: 1 mg Dextrose/Sodium Chloride (Dextrose 5%-1/2 Ns) 1,000 mls @ 25 mls/hr IV ASDIRECTED [facility] Ketorolac Tromethamine (Toradol) 30 mg IVPUSH Q6H [facility] Stop: 08/11/16 06:22 Metoclopramide HCl (Reglan) 10 mg IVPUSH Q6H PRN PRN Reason: NAUSEA Ondansetron HCl (Zofran) 4 mg IVPUSH Q6H PRN PRN Reason: Nausea/Vomiting Last Admin: 08/02/16 00:37 Dose: 4 mg Pantoprazole Sodium (Protonix Iv) 40 mg IVPUSH Q12H [facility] Last Admin: 08/06/16 06:21 Dose: 40 mg Prochlorperazine Edisylate (Compazine) 5 mg IVPUSH Q6H PRN PRN Reason: Nausea/Vomiting Last Admin: 08/02/16 02:57 Dose: 5 mg Sodium Chloride (Saline Flush) 10 ml FLUSH ASDIRECTED PRN PRN Reason: Keep Vein Open Discontinued Medications Acetaminophen/Codeine Phosphate (Tylenol With Codeine No.3 300mg/30mg) 1 - 2 tab PO Q4H PRN PRN Reason: Pain Last Admin: 07/31/16 21:29 Dose: 2 tab Bisacodyl (Dulcolax) 10 mg PO ONETIME ONE Stop: 07/30/16 09:01 Last Admin: 07/30/16 12:52 Dose: 10 mg Bisacodyl (Dulcolax) 10 mg PO ONETIME ONE Stop: 07/30/16 20:01 Last Admin: 07/30/16 20:40 Dose: 10 mg Bupivacaine HCl (Marcaine 0.5%) Confirm Administered Dose 50 ml .ROUTE .STK-MED ONE Stop: 08/05/16 08:22 Cefoxitin Sodium (Mefoxin) Confirm Administered Dose 2 gm .ROUTE .STK-MED ONE Stop: 08/02/16 12:12 Dexamethasone (Dexamethasone) Confirm Administered Dose 4 mg .ROUTE .STK-MED ONE Stop: 08/02/16 09:37 Ephedrine Sulfate (Ephedrine Sulfate) Confirm Administered Dose 50 mg .ROUTE .STK-MED ONE Stop: 08/02/16 12:15 Fentanyl (Sublimaze) 50 mcg IVPUSH ONETIME ONE Stop: 07/30/16 03:49 Last Admin: 07/30/16 04:07 Dose: 50 mcg Fentanyl (Sublimaze) 100 mcg .ROUTE .STK-MED ONE Stop: 07/31/16 10:01 Fentanyl (Sublimaze) Confirm Administered Dose 250 mcg .ROUTE .STK-MED ONE Stop: 08/02/16 09:36 Fentanyl (Sublimaze) Confirm Administered Dose 100 mcg .ROUTE .STK-MED ONE Stop: 08/02/16 12:03 Fentanyl (Sublimaze) Confirm Administered Dose 100 mcg .ROUTE .STK-MED ONE Stop: 08/05/16 07:22 Furosemide (Lasix) 10 mg PO DAILY [facility] Last Admin: 08/02/16 09:10 Dose: Not Given Furosemide (Lasix) 10 mg IVPUSH ONETIME ONE Stop: 08/04/16 11:01 Last Admin: 08/04/16 12:09 Dose: 10 mg Glycopyrrolate () Confirm Administered Dose 1 mg .ROUTE .STK-MED ONE Stop: 08/02/16 09:37 Hydromorphone HCl (Dilaudid) 0.5 mg IVPUSH Q1H PRN PRN Reason: Pain Last Admin: 08/02/16 06:07 Dose: 0.5 mg Hydromorphone HCl (Dilaudid) 0.5 mg IVPUSH Q30M PRN PRN Reason: Pain Last Admin: 08/02/16 10:55 Dose: 0.5 mg Lactated Ringer's (Ringers, Lactated) 1,000 mls @ 999 mls/hr IV BOLUS ONE Stop: 07/30/16 04:47 Last Admin: 07/30/16 04:04 Dose: 999 mls/hr Dextrose/Sodium Chloride (Dextrose 5%-Normal Saline) 1,000 mls @ 75 mls/hr IV ASDIRECTED [facility] Last Admin: 08/02/16 02:31 Dose: 75 mls/hr Potassium Chloride 20 meq/Lidocaine HCl 2 ml/ Sodium Chloride 112 mls @ 56 mls/ hr IV Q2H [facility] Stop: 08/01/16 18:59 Last Admin: 08/01/16 16:45 Dose: 56 mls/hr Fentanyl 2,500 mcg/ Sodium (Chloride) 250 mls @ 0 mls/hr EPIDUR TITRATE [facility]; Titrate PRN Reason: Protocol Last Admin: 08/04/16 07:45 Dose: 6 ml/hr, 6 mls/hr Sodium Chloride (Normal Saline) Confirm Administered Dose 10 mls @ as directed .ROUTE .[facility]-MED ONE Stop: 08/02/16 12:03 Lactated Ringer's (Ringers, Lactated) Confirm Administered Dose 1,000 mls @ as directed .ROUTE .[facility]-MED ONE Stop: 08/02/16 12:17 Lactated Ringer's (Ringers, Lactated) Confirm Administered Dose 1,000 mls @ as directed .ROUTE .[facility]-MED ONE Stop: 08/02/16 14:02 Potassium Chloride/Dextrose/Sod Cl (D5 1/2 Ns W/ 20 Meq/L Kcl) 1,000 mls @ 150 mls/hr IV ASDIRECTED [facility] Last Admin: 08/03/16 07:24 Dose: 125 mls/hr Cefoxitin Sodium 2 gm/ Sodium (Chloride) 50 mls @ 100 mls/hr IV Q8H [facility] Stop: 08/03/16 04:29 Last Admin: 08/03/16 05:37 Dose: 100 mls/hr Lactated Ringer's (Ringers, Lactated) 250 mls @ 250 mls/hr IV BOLUS ONE Stop: 08/02/16 17:21 Last Admin: 08/02/16 16:30 Dose: 250 mls/hr Hetastarch/Sodium Chloride (Hetastarch 6% In Normal Saline) 500 mls @ 500 mls/ hr IV ONETIME ONE Stop: 08/02/16 19:47 Last Admin: 08/02/16 19:11 Dose: 500 mls/hr Lactated Ringer's (Ringers, Lactated) 250 mls @ 250 mls/hr IV BOLUS ONE Stop: 08/03/16 01:08 Last Admin: 08/03/16 00:29 Dose: 250 mls/hr Dextrose/Sodium Chloride (Dextrose 5%-1/2 Ns) 1,000 mls @ 150 mls/hr IV ASDIRECTED [facility] Last Admin: 08/05/16 10:15 Dose: 150 mls/hr Acetaminophen 1,000 mg/ Premix 100 mls @ 400 mls/hr IV Q6H PRN PRN Reason: Pain Stop: 08/04/16 23:53 Last Admin: 08/04/16 13:49 Dose: 400 mls/hr Acetaminophen 1,000 mg/ Premix 100 mls @ 400 mls/hr IV Q6H PRN PRN Reason: Pain Stop: 08/05/16 23:58 Last Admin: 08/05/16 15:29 Dose: 400 mls/hr Lidocaine/Epinephrine (Xylocaine 1% With Epinephrine 1:100,000) Confirm Administered Dose 50 ml .ROUTE .STK-MED ONE Stop: 08/05/16 08:23 Lorazepam (Ativan) 0.5 mg IVPUSH ONETIME ONE Stop: 07/30/16 03:49 Last Admin: 07/30/16 04:12 Dose: 0.5 mg Midazolam HCl (Versed 1 Mg/Ml) 2 mg .ROUTE .STK-MED ONE Stop: 07/31/16 10:01 Naloxone HCl (Narcan) 0.1 mg IVPUSH Q5M PRN PRN Reason: RESP RATE LESS THAN 6/MINUTE Neostigmine Methylsulfate (Neostigmine) Confirm Administered Dose 5 mg .ROUTE .STK-MED ONE Stop: 08/02/16 09:37 Ondansetron HCl (Zofran) Confirm Administered Dose 4 mg .ROUTE .STK-MED ONE Stop: 08/02/16 09:37 Pantoprazole Sodium (Protonix) 40 mg PO BIDAC [facility] Last Admin: 08/02/16 16:40 Dose: Not Given Polyethylene Glycol (Miralax) 238 gm PO ONETIME ONE Stop: 07/30/16 17:01 Last Admin: 07/30/16 17:31 Dose: 238 gm Potassium Chloride (Klor-Con M20) 40 meq PO ONETIME ONE Stop: 08/01/16 15:01 Last Admin: 08/01/16 14:03 Dose: 40 meq Propofol (Diprivan 20 Ml) 200 mg .ROUTE .STK-MED ONE Stop: 07/31/16 10:01 Propofol (Diprivan 20 Ml) 200 mg .ROUTE .STK-MED ONE Stop: 07/31/16 10:01 Propofol (Diprivan 20 Ml) Confirm Administered Dose 200 mg .ROUTE .STK-MED ONE Stop: 08/02/16 09:37 Propofol (Diprivan 20 Ml) Confirm Administered Dose 200 mg .ROUTE .STK-MED ONE Stop: 08/05/16 07:21 Rocuronium [place] (Zemuron) Confirm Administered Dose 50 mg .ROUTE .STK-MED ONE Stop: 08/02/16 09:37 Scopolamine (Transderm-Scop) Confirm Administered Dose 1.5 mg .ROUTE .STK-MED ONE Stop: 08/02/16 09:37 Senna (Senna) 17.2 mg PO BEDTIME [facility] Last Admin: 08/01/16 20:38 Dose: 17.2 mg Sodium Chloride (Saline Flush) 10 ml FLUSH ASDIRECTED PRN PRN Reason: Keep Vein Open Last Admin: 07/30/16 04:00 Dose: 10 ml Succinylcholine Chloride (Succinylcholine In Ns Pf) Confirm Administered Dose 200 mg .ROUTE .STK-MED ONE Stop: 08/02/16 09:37 Tamsulosin HCl (Flomax) 0.4 mg PO DAILY [facility] Last Admin: 08/02/16 09:10 Dose: Not Given Trazodone HCl (Trazodone) 50 mg PO BEDTIME [facility] Last Admin: 08/01/16 20:45 Dose: 50 mg - Exam Wound/Incisions: healing well, dressing dry and intact, no drainage General: alert, oriented, cooperative, no acute distress Lungs: Clear to auscultation, Normal respiratory effort Cardiovascular: Regular Rate, Regular Rhythm Abdomen: bowel sounds present, soft, no tenderness Extremities: no edema Skin: warm, dry, intact Neurological: no new focal deficit Psy/Mental Status: alert, normal affect, normal mood - Problem List Review Problem List Initiated/Reviewed/Updated: Yes - My Orders Last 24 Hours: Active Orders 24 hr Category Date Time Status DC Bran Catheter [Urinary Catheter Removal] [RC] Per Care 08/06/16 06:21 Ordered Unit Routine Clear Liquid Diet [DIET] Diet 08/05/16 Lunch Active BASIC METABOLIC PANEL,BMP [CHEM] DAILY Lab 08/07/16 05:11 Ordered BASIC METABOLIC PANEL,BMP [CHEM] DAILY Lab 08/08/16 05:11 Ordered BASIC METABOLIC PANEL,BMP [CHEM] DAILY Lab 08/09/16 05:11 Ordered BASIC METABOLIC PANEL,BMP [CHEM] DAILY Lab 08/10/16 05:11 Ordered BASIC METABOLIC PANEL,BMP [CHEM] DAILY Lab 08/11/16 05:11 Ordered CBC W/O DIFF,HEMOGRAM [HEME] DAILY Lab 08/07/16 05:11 Ordered CBC W/O DIFF,HEMOGRAM [HEME] DAILY Lab 08/08/16 05:11 Ordered CBC W/O DIFF,HEMOGRAM [HEME] DAILY Lab 08/09/16 05:11 Ordered CBC W/O DIFF,HEMOGRAM [HEME] DAILY Lab 08/10/16 05:11 Ordered CBC W/O DIFF,HEMOGRAM [HEME] DAILY Lab 08/11/16 05:11 Ordered Bisacodyl [Dulcolax] Med 08/06/16 06:23 Ordered 10 mg RECTAL BID PRN Dextrose 5%-0.45% NaCl [Dextrose 5%-1/2 NS] 1,000 ml Med 08/05/16 11:00 Active IV ASDIRECTED Enoxaparin [Lovenox] Med 08/06/16 09:00 Ordered 40 mg SUBCUT DAILY HYDROmorphone [Dilaudid] Med 08/05/16 10:59 Active 1 mg IVPUSH Q1H PRN Ketorolac [Toradol] Med 08/06/16 06:30 Ordered 30 mg IVPUSH Q6H Medication Orders Bisacodyl (Dulcolax) 10 mg RECTAL BID PRN PRN Reason: Constipation Diphenhydramine HCl (Benadryl) 25 - 50 mg IVPUSH Q4H PRN PRN Reason: ITCH Last Admin: 08/04/16 23:57 Dose: 25 mg Enoxaparin Sodium (Lovenox) 40 mg SUBCUT DAILY [facility] Furosemide (Lasix) 10 mg IVPUSH DAILY [facility] Last Admin: 08/05/16 10:17 Dose: 10 mg Admin: 08/04/16 09:21 Dose: 10 mg Admin: 08/03/16 09:13 Dose: 10 mg Hydromorphone HCl (Dilaudid) 1 mg IVPUSH Q1H PRN PRN Reason: Abdominal Pain Last Admin: 08/06/16 03:42 Dose: 1 mg Admin: 08/06/16 00:03 Dose: 1 mg Admin: 08/05/16 21:58 Dose: 1 mg Admin: 08/05/16 18:03 Dose: 1 mg Admin: 08/05/16 13:03 Dose: 1 mg Admin: 08/05/16 11:10 Dose: 1 mg Dextrose/Sodium Chloride (Dextrose 5%-1/2 Ns) 1,000 mls @ 25 mls/hr IV ASDIRECTED [facility] Ketorolac Tromethamine (Toradol) 30 mg IVPUSH Q6H [facility] Stop: 08/11/16 06:22 Metoclopramide HCl (Reglan) 10 mg IVPUSH Q6H PRN PRN Reason: NAUSEA Ondansetron HCl (Zofran) 4 mg IVPUSH Q6H PRN PRN Reason: Nausea/Vomiting Last Admin: 08/02/16 00:37 Dose: 4 mg Pantoprazole Sodium (Protonix Iv) 40 mg IVPUSH Q12H [facility] Last Admin: 08/06/16 06:21 Dose: 40 mg Admin: 08/05/16 18:04 Dose: 40 mg Admin: 08/05/16 05:38 Dose: 40 mg Admin: 08/04/16 18:18 Dose: 40 mg Admin: 08/04/16 06:14 Dose: 40 mg Admin: 08/03/16 17:40 Dose: 40 mg Admin: 08/03/16 05:37 Dose: 40 mg Admin: 08/02/16 17:41 Dose: 40 mg Prochlorperazine Edisylate (Compazine) 5 mg IVPUSH Q6H PRN PRN Reason: Nausea/Vomiting Last Admin: 08/02/16 02:57 Dose: 5 mg Sodium Chloride (Saline Flush) 10 ml FLUSH ASDIRECTED PRN PRN Reason: Keep Vein Open - Assessment Assessment (Free Text/Narrative):: Large urine output. Hgb OK. Tolerating clear liquid diet with no abdominal distension and no N/V. - Plan Plan (Free Text/Narrative):: D/C Bran. Lovenox. Dulcolax supp.
[2016-08-06] MEDS: Enoxaparin 40 MG/0.4 ML Syringe SUBCUT SCH (08:18)
[2016-08-06] MEDS: Furosemide 20 MG/2 ML VIAL IVPUSH SCH (08:18)
[2016-08-06] MEDS: Ketorolac 30 MG/ML SDV IVPUSH SCH ×3 (12:30→23:24)
--- NOTE | 2016-08-06 18:46 | PCM.PN ---
- General Info Date of Service: 08/06/16 Admission Dx/Problem (Free Text): He has a poor calorie intake stating the food has no taste and his mouth is dry. Functional Status: Reports: pain controlled - Review of Systems General: Reports: Weakness, Fatigue HEENT: Reports: no symptoms Pulmonary: Reports: no symptoms Cardiovascular: Reports: No Symptoms Gastrointestinal: Reports: No symptoms Genitourinary: Reports: no symptoms Musculoskeletal: Reports: no symptoms Neurological: Reports: Weakness Psychiatric: Reports: no symptoms - Patient Data Vitals - most recent: Last Vital Signs Temp 98.1 F 08/06/16 15:36 Pulse 67 08/06/16 15:36 Resp 18 08/06/16 15:36 BP 152/80 H 08/06/16 15:36 Pulse Ox 98 08/06/16 15:36 Weight - most recent: 190 lb 11.2 oz I&O - last 24 hours: Intake & Output 08/06/16 08/06/16 08/06/16 06:59 14:59 22:59 Intake Total 240 300 Output Total 400 425 Balance -400 -185 300 Lab Results last 24 hrs: Laboratory Results - last 24 hr 08/06/16 08/06/16 Range/Units 05:00 05:00 WBC 18.8 H (4.5-11.0) K/uL RBC 4.41 (4.30-5.90) M/uL Hgb 10.5 L (12.0-15.0) g/dL Hct 32.3 L (40.0-54.0) % MCV 73 L (80-98) fL MCH 24 L (27-31) pg MCHC 33 (32-36) % Plt Count 362 (150-400) K/uL Sodium 136 L (140-148) mmol/L Potassium 3.9 (3.6-5.2) mmol/L Chloride 102 (100-108) mmol/L Carbon Dioxide 30 (21-32) mmol/L Anion Gap 7.9 (5.0-14.0) mmol/L BUN 14 (7-18) mg/dL Creatinine 1.2 (0.8-1.3) mg/dL Est Cr Clr Drug Dosing 49.97 mL/min Estimated GFR (MDRD) 58 L (>60) Glucose 96 (74-106) mg/dL Calcium 7.8 L (8.5-10.1) mg/dL Yo Results last 24 hrs: Microbiology 08/02/16 12:54 Gram Stain - Final Peritoneal Fluid Wound Culture - Final NO GROWTH AFTER 3 DAYS Anaerobic Culture - Final NO GROWTH AFTER 3 DAYS Med Orders - Current: Current Medications Bisacodyl (Dulcolax) 10 mg RECTAL BID PRN PRN Reason: Constipation Last Admin: 08/06/16 07:13 Dose: 10 mg Diphenhydramine HCl (Benadryl) 25 - 50 mg IVPUSH Q4H PRN PRN Reason: ITCH Last Admin: 08/04/16 23:57 Dose: 25 mg Enoxaparin Sodium (Lovenox) 40 mg SUBCUT DAILY [facility] Last Admin: 08/06/16 08:18 Dose: 40 mg Furosemide (Lasix) 10 mg IVPUSH DAILY [facility] Last Admin: 08/06/16 08:18 Dose: 10 mg Hydromorphone HCl (Dilaudid) 1 mg IVPUSH Q1H PRN PRN Reason: Abdominal Pain Last Admin: 08/06/16 03:42 Dose: 1 mg Dextrose/Sodium Chloride (Dextrose 5%-1/2 Ns) 1,000 mls @ 25 mls/hr IV ASDIRECTED [facility] Ketorolac Tromethamine (Toradol) 15 mg IVPUSH Q6H [facility] Stop: 08/11/16 00:01 Last Admin: 08/06/16 17:57 Dose: 15 mg Metoclopramide HCl (Reglan) 10 mg IVPUSH Q6H PRN PRN Reason: NAUSEA Ondansetron HCl (Zofran) 4 mg IVPUSH Q6H PRN PRN Reason: Nausea/Vomiting Last Admin: 08/02/16 00:37 Dose: 4 mg Pantoprazole Sodium (Protonix Iv) 40 mg IVPUSH Q12H [facility] Last Admin: 08/06/16 17:56 Dose: 40 mg Prochlorperazine Edisylate (Compazine) 5 mg IVPUSH Q6H PRN PRN Reason: Nausea/Vomiting Last Admin: 08/02/16 02:57 Dose: 5 mg Sodium Chloride (Saline Flush) 10 ml FLUSH ASDIRECTED PRN PRN Reason: Keep Vein Open Discontinued Medications Acetaminophen/Codeine Phosphate (Tylenol With Codeine No.3 300mg/30mg) 1 - 2 tab PO Q4H PRN PRN Reason: Pain Last Admin: 07/31/16 21:29 Dose: 2 tab Bisacodyl (Dulcolax) 10 mg PO ONETIME ONE Stop: 07/30/16 09:01 Last Admin: 07/30/16 12:52 Dose: 10 mg Bisacodyl (Dulcolax) 10 mg PO ONETIME ONE Stop: 07/30/16 20:01 Last Admin: 07/30/16 20:40 Dose: 10 mg Bupivacaine HCl (Marcaine 0.5%) Confirm Administered Dose 50 ml .ROUTE .STK-MED ONE Stop: 08/05/16 08:22 Cefoxitin Sodium (Mefoxin) Confirm Administered Dose 2 gm .ROUTE .STK-MED ONE Stop: 08/02/16 12:12 Dexamethasone (Dexamethasone) Confirm Administered Dose 4 mg .ROUTE .STK-MED ONE Stop: 08/02/16 09:37 Ephedrine Sulfate (Ephedrine Sulfate) Confirm Administered Dose 50 mg .ROUTE .STK-MED ONE Stop: 08/02/16 12:15 Fentanyl (Sublimaze) 50 mcg IVPUSH ONETIME ONE Stop: 07/30/16 03:49 Last Admin: 07/30/16 04:07 Dose: 50 mcg Fentanyl (Sublimaze) 100 mcg .ROUTE .STK-MED ONE Stop: 07/31/16 10:01 Fentanyl (Sublimaze) Confirm Administered Dose 250 mcg .ROUTE .STK-MED ONE Stop: 08/02/16 09:36 Fentanyl (Sublimaze) Confirm Administered Dose 100 mcg .ROUTE .STK-MED ONE Stop: 08/02/16 12:03 Fentanyl (Sublimaze) Confirm Administered Dose 100 mcg .ROUTE .STK-MED ONE Stop: 08/05/16 07:22 Furosemide (Lasix) 10 mg PO DAILY [facility] Last Admin: 08/02/16 09:10 Dose: Not Given Furosemide (Lasix) 10 mg IVPUSH ONETIME ONE Stop: 08/04/16 11:01 Last Admin: 08/04/16 12:09 Dose: 10 mg Glycopyrrolate () Confirm Administered Dose 1 mg .ROUTE .STK-MED ONE Stop: 08/02/16 09:37 Hydromorphone HCl (Dilaudid) 0.5 mg IVPUSH Q1H PRN PRN Reason: Pain Last Admin: 08/02/16 06:07 Dose: 0.5 mg Hydromorphone HCl (Dilaudid) 0.5 mg IVPUSH Q30M PRN PRN Reason: Pain Last Admin: 08/02/16 10:55 Dose: 0.5 mg Lactated Ringer's (Ringers, Lactated) 1,000 mls @ 999 mls/hr IV BOLUS ONE Stop: 07/30/16 04:47 Last Admin: 07/30/16 04:04 Dose: 999 mls/hr Dextrose/Sodium Chloride (Dextrose 5%-Normal Saline) 1,000 mls @ 75 mls/hr IV ASDIRECTED [facility] Last Admin: 08/02/16 02:31 Dose: 75 mls/hr Potassium Chloride 20 meq/Lidocaine HCl 2 ml/ Sodium Chloride 112 mls @ 56 mls/ hr IV Q2H [facility] Stop: 08/01/16 18:59 Last Admin: 08/01/16 16:45 Dose: 56 mls/hr Fentanyl 2,500 mcg/ Sodium (Chloride) 250 mls @ 0 mls/hr EPIDUR TITRATE [facility]; Titrate PRN Reason: Protocol Last Admin: 08/04/16 07:45 Dose: 6 ml/hr, 6 mls/hr Sodium Chloride (Normal Saline) Confirm Administered Dose 10 mls @ as directed .ROUTE .STK-MED ONE Stop: 08/02/16 12:03 Lactated Ringer's (Ringers, Lactated) Confirm Administered Dose 1,000 mls @ as directed .ROUTE .STK-MED ONE Stop: 08/02/16 12:17 Lactated Ringer's (Ringers, Lactated) Confirm Administered Dose 1,000 mls @ as directed .ROUTE .STK-MED ONE Stop: 08/02/16 14:02 Potassium Chloride/Dextrose/Sod Cl (D5 1/2 Ns W/ 20 Meq/L Kcl) 1,000 mls @ 150 mls/hr IV ASDIRECTED [facility] Last Admin: 08/03/16 07:24 Dose: 125 mls/hr Cefoxitin Sodium 2 gm/ Sodium (Chloride) 50 mls @ 100 mls/hr IV Q8H [facility] Stop: 08/03/16 04:29 Last Admin: 08/03/16 05:37 Dose: 100 mls/hr Lactated Ringer's (Ringers, Lactated) 250 mls @ 250 mls/hr IV BOLUS ONE Stop: 08/02/16 17:21 Last Admin: 08/02/16 16:30 Dose: 250 mls/hr Hetastarch/Sodium Chloride (Hetastarch 6% In Normal Saline) 500 mls @ 500 mls/ hr IV ONETIME ONE Stop: 08/02/16 19:47 Last Admin: 08/02/16 19:11 Dose: 500 mls/hr Lactated Ringer's (Ringers, Lactated) 250 mls @ 250 mls/hr IV BOLUS ONE Stop: 08/03/16 01:08 Last Admin: 08/03/16 00:29 Dose: 250 mls/hr Dextrose/Sodium Chloride (Dextrose 5%-1/2 Ns) 1,000 mls @ 150 mls/hr IV ASDIRECTED [facility] Last Admin: 08/05/16 10:15 Dose: 150 mls/hr Acetaminophen 1,000 mg/ Premix 100 mls @ 400 mls/hr IV Q6H PRN PRN Reason: Pain Stop: 08/04/16 23:53 Last Admin: 08/04/16 13:49 Dose: 400 mls/hr Acetaminophen 1,000 mg/ Premix 100 mls @ 400 mls/hr IV Q6H PRN PRN Reason: Pain Stop: 08/05/16 23:58 Last Admin: 08/05/16 15:29 Dose: 400 mls/hr Ketorolac Tromethamine (Toradol) 30 mg IVPUSH Q6H RONN Stop: 08/11/16 06:01 Last Admin: 08/06/16 07:04 Dose: 30 mg Lidocaine/Epinephrine (Xylocaine 1% With Epinephrine 1:100,000) Confirm Administered Dose 50 ml .ROUTE .STK-MED ONE Stop: 08/05/16 08:23 Lorazepam (Ativan) 0.5 mg IVPUSH ONETIME ONE Stop: 07/30/16 03:49 Last Admin: 07/30/16 04:12 Dose: 0.5 mg Midazolam HCl (Versed 1 Mg/Ml) 2 mg .ROUTE .STK-MED ONE Stop: 07/31/16 10:01 Naloxone HCl (Narcan) 0.1 mg IVPUSH Q5M PRN PRN Reason: RESP RATE LESS THAN 6/MINUTE Neostigmine Methylsulfate (Neostigmine) Confirm Administered Dose 5 mg .ROUTE .STK-MED ONE Stop: 08/02/16 09:37 Ondansetron HCl (Zofran) Confirm Administered Dose 4 mg .ROUTE .STK-MED ONE Stop: 08/02/16 09:37 Pantoprazole Sodium (Protonix) 40 mg PO BIDAC [facility] Last Admin: 08/02/16 16:40 Dose: Not Given Polyethylene Glycol (Miralax) 238 gm PO ONETIME ONE Stop: 07/30/16 17:01 Last Admin: 07/30/16 17:31 Dose: 238 gm Potassium Chloride (Klor-Con M20) 40 meq PO ONETIME ONE Stop: 08/01/16 15:01 Last Admin: 08/01/16 14:03 Dose: 40 meq Propofol (Diprivan 20 Ml) 200 mg .ROUTE .STK-MED ONE Stop: 07/31/16 10:01 Propofol (Diprivan 20 Ml) 200 mg .ROUTE .STK-MED ONE Stop: 07/31/16 10:01 Propofol (Diprivan 20 Ml) Confirm Administered Dose 200 mg .ROUTE .STK-MED ONE Stop: 08/02/16 09:37 Propofol (Diprivan 20 Ml) Confirm Administered Dose 200 mg .ROUTE .STK-MED ONE Stop: 08/05/16 07:21 Rocuronium [place] (Zemuron) Confirm Administered Dose 50 mg .ROUTE .STK-MED ONE Stop: 08/02/16 09:37 Scopolamine (Transderm-Scop) Confirm Administered Dose 1.5 mg .ROUTE .STK-MED ONE Stop: 08/02/16 09:37 Senna (Senna) 17.2 mg PO BEDTIME [facility] Last Admin: 08/01/16 20:38 Dose: 17.2 mg Sodium Chloride (Saline Flush) 10 ml FLUSH ASDIRECTED PRN PRN Reason: Keep Vein Open Last Admin: 07/30/16 04:00 Dose: 10 ml Succinylcholine Chloride (Succinylcholine In Ns Pf) Confirm Administered Dose 200 mg .ROUTE .STK-MED ONE Stop: 08/02/16 09:37 Tamsulosin HCl (Flomax) 0.4 mg PO DAILY [facility] Last Admin: 08/02/16 09:10 Dose: Not Given Trazodone HCl (Trazodone) 50 mg PO BEDTIME RONN Last Admin: 08/01/16 20:45 Dose: 50 mg - Exam General: alert, oriented Neck: supple Lungs: Clear to auscultation, Normal respiratory effort Cardiovascular: Regular Rate, Regular Rhythm Abdomen: bowel sounds present, soft, no tenderness, no distension Back Exam: Normal Inspection, Full Range of Motion Extremities: no edema Peripheral Pulses: 1+: Radial (L), Radial (R) Skin: warm, dry, intact - Problem List Review Problem List Initiated/Reviewed/Updated: Yes - Plan Plan:: Assessment/plan: #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 WBC is down slightly to 18.8 with Hb 10.5. He has no fever. Other than the elevated WBC there is no signs of an infection. #2. Hyperlipidemia: On medication #3. BPH: #4. Insomnia: Uses Trazodone. #5. Anemia: Hb 10.5 #6. CRF: Creatinine stable. #7. Obesity
[2016-08-07] MEDS: Pantoprazole 40 MG Vial IVPUSH SCH (05:28)
[2016-08-07] MEDS: Ketorolac 30 MG/ML SDV IVPUSH SCH ×2 (05:28→12:05)
--- NOTE | 2016-08-07 08:53 | PCM.PN ---
- General Info Date of Service: 08/07/16 - Review of Systems General: Reports: Weakness HEENT: Reports: no symptoms Pulmonary: Reports: no symptoms Cardiovascular: Reports: No Symptoms Gastrointestinal: Reports: No symptoms Musculoskeletal: Reports: no symptoms Neurological: Reports: No Symptoms Psychiatric: Reports: no symptoms - Patient Data Vitals - most recent: Last Vital Signs Temp 96.4 F 08/07/16 07:45 Pulse 80 08/07/16 07:45 Resp 16 08/07/16 07:45 BP 162/88 H 08/07/16 07:45 Pulse Ox 95 08/07/16 07:45 Weight - most recent: 178 lb 12.8 oz I&O - last 24 hours: Intake & Output 08/06/16 08/07/16 08/07/16 22:59 06:59 14:59 Intake Total 540 455 Balance 540 455 Lab Results last 24 hrs: Laboratory Results - last 24 hr 08/07/16 08/07/16 Range/Units 05:34 05:34 WBC 12.2 H (4.5-11.0) K/uL RBC 4.02 L (4.30-5.90) M/uL Hgb 9.7 L (12.0-15.0) g/dL Hct 29.2 L (40.0-54.0) % MCV 73 L (80-98) fL MCH 24 L (27-31) pg MCHC 33 (32-36) % Plt Count 392 (150-400) K/uL Sodium 138 L (140-148) mmol/L Potassium 3.7 (3.6-5.2) mmol/L Chloride 102 (100-108) mmol/L Carbon Dioxide 28 (21-32) mmol/L Anion Gap 11.7 (5.0-14.0) mmol/L BUN 20 H (7-18) mg/dL Creatinine 1.2 (0.8-1.3) mg/dL Est Cr Clr Drug Dosing 49.97 mL/min Estimated GFR (MDRD) 58 L (>60) Glucose 88 (74-106) mg/dL Calcium 7.8 L (8.5-10.1) mg/dL Yo Results last 24 hrs: Microbiology 08/02/16 12:54 Gram Stain - Final Peritoneal Fluid Wound Culture - Final NO GROWTH AFTER 3 DAYS Anaerobic Culture - Final NO GROWTH AFTER 3 DAYS Med Orders - Current: Current Medications Bisacodyl (Dulcolax) 10 mg RECTAL BID PRN PRN Reason: Constipation Last Admin: 08/06/16 07:13 Dose: 10 mg Diphenhydramine HCl (Benadryl) 25 - 50 mg IVPUSH Q4H PRN PRN Reason: ITCH Last Admin: 08/04/16 23:57 Dose: 25 mg Enoxaparin Sodium (Lovenox) 40 mg SUBCUT DAILY [facility] Last Admin: 08/06/16 08:18 Dose: 40 mg Furosemide (Lasix) 10 mg IVPUSH DAILY [facility] Last Admin: 08/06/16 08:18 Dose: 10 mg Hydromorphone HCl (Dilaudid) 1 mg IVPUSH Q1H PRN PRN Reason: Abdominal Pain Last Admin: 08/06/16 03:42 Dose: 1 mg Dextrose/Sodium Chloride (Dextrose 5%-1/2 Ns) 1,000 mls @ 25 mls/hr IV ASDIRECTED [facility] Ketorolac Tromethamine (Toradol) 15 mg IVPUSH Q6H [facility] Stop: 08/11/16 00:01 Last Admin: 08/07/16 05:28 Dose: 15 mg Metoclopramide HCl (Reglan) 10 mg IVPUSH Q6H PRN PRN Reason: NAUSEA Ondansetron HCl (Zofran) 4 mg IVPUSH Q6H PRN PRN Reason: Nausea/Vomiting Last Admin: 08/02/16 00:37 Dose: 4 mg Pantoprazole Sodium (Protonix Iv) 40 mg IVPUSH Q12H [facility] Last Admin: 08/07/16 05:28 Dose: 40 mg Prochlorperazine Edisylate (Compazine) 5 mg IVPUSH Q6H PRN PRN Reason: Nausea/Vomiting Last Admin: 08/02/16 02:57 Dose: 5 mg Sodium Chloride (Saline Flush) 10 ml FLUSH ASDIRECTED PRN PRN Reason: Keep Vein Open Discontinued Medications Acetaminophen/Codeine Phosphate (Tylenol With Codeine No.3 300mg/30mg) 1 - 2 tab PO Q4H PRN PRN Reason: Pain Last Admin: 07/31/16 21:29 Dose: 2 tab Bisacodyl (Dulcolax) 10 mg PO ONETIME ONE Stop: 07/30/16 09:01 Last Admin: 07/30/16 12:52 Dose: 10 mg Bisacodyl (Dulcolax) 10 mg PO ONETIME ONE Stop: 07/30/16 20:01 Last Admin: 07/30/16 20:40 Dose: 10 mg Bupivacaine HCl (Marcaine 0.5%) Confirm Administered Dose 50 ml .ROUTE .ST-MED ONE Stop: 08/05/16 08:22 Cefoxitin Sodium (Mefoxin) Confirm Administered Dose 2 gm .ROUTE .ST-MED ONE Stop: 08/02/16 12:12 Dexamethasone (Dexamethasone) Confirm Administered Dose 4 mg .ROUTE .ST-MED ONE Stop: 08/02/16 09:37 Ephedrine Sulfate (Ephedrine Sulfate) Confirm Administered Dose 50 mg .ROUTE .ST-MED ONE Stop: 08/02/16 12:15 Fentanyl (Sublimaze) 50 mcg IVPUSH ONETIME ONE Stop: 07/30/16 03:49 Last Admin: 07/30/16 04:07 Dose: 50 mcg Fentanyl (Sublimaze) 100 mcg .ROUTE .ST-MED ONE Stop: 07/31/16 10:01 Fentanyl (Sublimaze) Confirm Administered Dose 250 mcg .ROUTE .ST-MED ONE Stop: 08/02/16 09:36 Fentanyl (Sublimaze) Confirm Administered Dose 100 mcg .ROUTE .[facility]-MED ONE Stop: 08/02/16 12:03 Fentanyl (Sublimaze) Confirm Administered Dose 100 mcg .ROUTE .[facility]-MED ONE Stop: 08/05/16 07:22 Furosemide (Lasix) 10 mg PO DAILY [facility] Last Admin: 08/02/16 09:10 Dose: Not Given Furosemide (Lasix) 10 mg IVPUSH ONETIME ONE Stop: 08/04/16 11:01 Last Admin: 08/04/16 12:09 Dose: 10 mg Glycopyrrolate () Confirm Administered Dose 1 mg .ROUTE .ST-MED ONE Stop: 08/02/16 09:37 Hydromorphone HCl (Dilaudid) 0.5 mg IVPUSH Q1H PRN PRN Reason: Pain Last Admin: 08/02/16 06:07 Dose: 0.5 mg Hydromorphone HCl (Dilaudid) 0.5 mg IVPUSH Q30M PRN PRN Reason: Pain Last Admin: 08/02/16 10:55 Dose: 0.5 mg Lactated Ringer's (Ringers, Lactated) 1,000 mls @ 999 mls/hr IV BOLUS ONE Stop: 07/30/16 04:47 Last Admin: 07/30/16 04:04 Dose: 999 mls/hr Dextrose/Sodium Chloride (Dextrose 5%-Normal Saline) 1,000 mls @ 75 mls/hr IV ASDIRECTED [facility] Last Admin: 08/02/16 02:31 Dose: 75 mls/hr Potassium Chloride 20 meq/Lidocaine HCl 2 ml/ Sodium Chloride 112 mls @ 56 mls/ hr IV Q2H [facility] Stop: 08/01/16 18:59 Last Admin: 08/01/16 16:45 Dose: 56 mls/hr Fentanyl 2,500 mcg/ Sodium (Chloride) 250 mls @ 0 mls/hr EPIDUR TITRATE [facility]; Titrate PRN Reason: Protocol Last Admin: 08/04/16 07:45 Dose: 6 ml/hr, 6 mls/hr Sodium Chloride (Normal Saline) Confirm Administered Dose 10 mls @ as directed .ROUTE .STK-MED ONE Stop: 08/02/16 12:03 Lactated Ringer's (Ringers, Lactated) Confirm Administered Dose 1,000 mls @ as directed .ROUTE .STK-MED ONE Stop: 08/02/16 12:17 Lactated Ringer's (Ringers, Lactated) Confirm Administered Dose 1,000 mls @ as directed .ROUTE .STK-MED ONE Stop: 08/02/16 14:02 Potassium Chloride/Dextrose/Sod Cl (D5 1/2 Ns W/ 20 Meq/L Kcl) 1,000 mls @ 150 mls/hr IV ASDIRECTED [facility] Last Admin: 08/03/16 07:24 Dose: 125 mls/hr Cefoxitin Sodium 2 gm/ Sodium (Chloride) 50 mls @ 100 mls/hr IV Q8H [facility] Stop: 08/03/16 04:29 Last Admin: 08/03/16 05:37 Dose: 100 mls/hr Lactated Ringer's (Ringers, Lactated) 250 mls @ 250 mls/hr IV BOLUS ONE Stop: 08/02/16 17:21 Last Admin: 08/02/16 16:30 Dose: 250 mls/hr Hetastarch/Sodium Chloride (Hetastarch 6% In Normal Saline) 500 mls @ 500 mls/ hr IV ONETIME ONE Stop: 08/02/16 19:47 Last Admin: 08/02/16 19:11 Dose: 500 mls/hr Lactated Ringer's (Ringers, Lactated) 250 mls @ 250 mls/hr IV BOLUS ONE Stop: 08/03/16 01:08 Last Admin: 08/03/16 00:29 Dose: 250 mls/hr Dextrose/Sodium Chloride (Dextrose 5%-1/2 Ns) 1,000 mls @ 150 mls/hr IV ASDIRECTED [facility] Last Admin: 08/05/16 10:15 Dose: 150 mls/hr Acetaminophen 1,000 mg/ Premix 100 mls @ 400 mls/hr IV Q6H PRN PRN Reason: Pain Stop: 08/04/16 23:53 Last Admin: 08/04/16 13:49 Dose: 400 mls/hr Acetaminophen 1,000 mg/ Premix 100 mls @ 400 mls/hr IV Q6H PRN PRN Reason: Pain Stop: 08/05/16 23:58 Last Admin: 08/05/16 15:29 Dose: 400 mls/hr Ketorolac Tromethamine (Toradol) 30 mg IVPUSH Q6H [facility] Stop: 08/11/16 06:01 Last Admin: 08/06/16 07:04 Dose: 30 mg Lidocaine/Epinephrine (Xylocaine 1% With Epinephrine 1:100,000) Confirm Administered Dose 50 ml .ROUTE .STK-MED ONE Stop: 08/05/16 08:23 Lorazepam (Ativan) 0.5 mg IVPUSH ONETIME ONE Stop: 07/30/16 03:49 Last Admin: 07/30/16 04:12 Dose: 0.5 mg Midazolam HCl (Versed 1 Mg/Ml) 2 mg .ROUTE .STK-MED ONE Stop: 07/31/16 10:01 Naloxone HCl (Narcan) 0.1 mg IVPUSH Q5M PRN PRN Reason: RESP RATE LESS THAN 6/MINUTE Neostigmine Methylsulfate (Neostigmine) Confirm Administered Dose 5 mg .ROUTE .STK-MED ONE Stop: 08/02/16 09:37 Ondansetron HCl (Zofran) Confirm Administered Dose 4 mg .ROUTE .STK-MED ONE Stop: 08/02/16 09:37 Pantoprazole Sodium (Protonix) 40 mg PO BIDAC [facility] Last Admin: 08/02/16 16:40 Dose: Not Given Polyethylene Glycol (Miralax) 238 gm PO ONETIME ONE Stop: 07/30/16 17:01 Last Admin: 07/30/16 17:31 Dose: 238 gm Potassium Chloride (Klor-Con M20) 40 meq PO ONETIME ONE Stop: 08/01/16 15:01 Last Admin: 08/01/16 14:03 Dose: 40 meq Propofol (Diprivan 20 Ml) 200 mg .ROUTE .STK-MED ONE Stop: 07/31/16 10:01 Propofol (Diprivan 20 Ml) 200 mg .ROUTE .STK-MED ONE Stop: 07/31/16 10:01 Propofol (Diprivan 20 Ml) Confirm Administered Dose 200 mg .ROUTE .STK-MED ONE Stop: 08/02/16 09:37 Propofol (Diprivan 20 Ml) Confirm Administered Dose 200 mg .ROUTE .STK-MED ONE Stop: 08/05/16 07:21 Rocuronium [place] (Zemuron) Confirm Administered Dose 50 mg .ROUTE .STK-MED ONE Stop: 08/02/16 09:37 Scopolamine (Transderm-Scop) Confirm Administered Dose 1.5 mg .ROUTE .STK-MED ONE Stop: 08/02/16 09:37 Senna (Senna) 17.2 mg PO BEDTIME [facility] Last Admin: 08/01/16 20:38 Dose: 17.2 mg Sodium Chloride (Saline Flush) 10 ml FLUSH ASDIRECTED PRN PRN Reason: Keep Vein Open Last Admin: 07/30/16 04:00 Dose: 10 ml Succinylcholine Chloride (Succinylcholine In Ns Pf) Confirm Administered Dose 200 mg .ROUTE .STK-MED ONE Stop: 08/02/16 09:37 Tamsulosin HCl (Flomax) 0.4 mg PO DAILY [facility] Last Admin: 08/02/16 09:10 Dose: Not Given Trazodone HCl (Trazodone) 50 mg PO BEDTIME [facility] Last Admin: 08/01/16 20:45 Dose: 50 mg - Exam General: alert, oriented Neck: supple Lungs: Clear to auscultation, Normal respiratory effort Cardiovascular: Regular Rate, Regular Rhythm Peripheral Pulses: 1+: Radial (L), Radial (R) Skin: warm, dry, intact - Problem List Review Problem List Initiated/Reviewed/Updated: Yes - Plan Plan:: Assessment/plan: #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 WBC is down to 12.2 with Hb 9.2. He has no fever. #2. Hyperlipidemia: On medication #3. BPH: #4. Insomnia: Uses Trazodone. #5. Anemia: Hb 93.2 #6. CRF: Creatinine stable. #7. Willl start Physical Therapy today.
[2016-08-07] MEDS: Enoxaparin 40 MG/0.4 ML Syringe SUBCUT SCH (08:58)
[2016-08-07] MEDS: Furosemide 20 MG/2 ML VIAL IVPUSH SCH (08:58)
[2016-08-07 11:48] VITALS: BP 151/76
--- NOTE | 2016-08-07 12:54 | PCM.DCSUM1 ---
Discharge Summary - Hospital Course Free Text/Narrative:: This 81 year old white male had some abdominal pain so a CT scan was obtained. This showed a right colon mass. He was prepared for a colonoscopy but he did not tolerate this. He was admitted on July 30, 2016 for the prep which he vomited. His colon was cleared with enemas. On July 31, 2016 a colonoscopy was performed which showed a near obstructing right colon mass. On August 02, 2016 he underwent a right hemicolectomy with primary anastomosis with finding of multiple enlarged lymph nodes, some high up in the periaorta area. His incision was left open for delayed primary closure which was done on August 05, 2016. Currently he is eating well, has good bowel function and denies complaints. He is transferred to [facility] in fair condition. Final pathology is pending. Brief History: See above narrative. - Discharge Data Discharge Date: 08/07/16 Discharge Disposition: DC/Tfer to [facility] 03 Condition: Fair - Discharge Diagnosis/Problem(s) (1) S/P right hemicolectomy SNOMED Code(s): 792210076, [id number] ICD Code: Z90.49 - ACQUIRED ABSENCE OF OTHER SPECIFIED PARTS OF DIGESTIVE TRACT Status: Acute Current Visit: Yes (2) Mass of colon SNOMED Code(s): 021348816 ICD Code: K63.9 - DISEASE OF INTESTINE, UNSPECIFIED Status: Acute Current Visit: Yes - Patient Summary/Data Consults: Consultations 08/07/16 08:50 Consult to Physical Therapy [PT Evaluation and Treatment] [CONS] Routine Please Evaluate and Treat. PT Reason for Consult: Strengthening This query below is only for informational purposes and is not editable. Admission Diagnosis/Problem: Obstruction of colon - Patient Instructions Diet: Usual Diet as Tolerated Activity: As Tolerated Driving: Do Not Drive Showering/Bathing: May Shower, No Tub Bathing/Swimming Notify Provider of: Fever, Increased Pain, Swelling and Redness, Drainage, Nausea and/or Vomiting - Discharge Plan Home Medications: Home Meds Diclofenac Sodium [Voltaren] 75 mg PO BID 10/15/13 [History] Furosemide 10 mg PO DAILY 10/15/13 [History] Gabapentin 800 mg PO BID 10/15/13 [History] Gluc 2KCl/Chondr/Juan R Hy/Hy Ac [Glucosamine & Chondroitin Cap] 1 tab PO BID [History] Simvastatin [Zocor] 40 mg PO BEDTIME 10/15/13 [History] Aspirin [Adult Low Dose Aspirin EC] 81 mg PO DAILY 01/05/16 [History] Magnesium Oxide [Magnesium] 400 mg PO BID 01/05/16 [History] Melatonin 10 mg PO BEDTIME 01/05/16 [History] Multivitamin [Multivitamins] 1 tab PO DAILY 01/05/16 [History] Tamsulosin HCl [Flomax] 0.4 mg PO DAILY 01/05/16 [History] Zinc 50 mg PO DAILY 01/05/16 [History] traZODone HCl [Trazodone HCl] 50 mg PO BEDTIME 01/05/16 [History] Pantoprazole [ProTONIX] 40 mg PO BIDAC 04/17/16 [History] Forms: ED Department Discharge Referrals: Wesley Boland MD [Physician] - (See me in [facility] on Friday, August 12, 2016 for check and skin staple removal. ) Cesar Delcid Sr, MD [Primary Care Provider] - - Discharge Summary/Plan Comment DC Time >30 min.: Yes - Patient Data Vitals - Most Recent: Last Vital Signs Temp 99.1 F 08/07/16 11:46 Pulse 77 08/07/16 11:46 Resp 20 08/07/16 11:46 BP 151/76 H 08/07/16 11:46 Pulse Ox 94 L 08/07/16 11:46 Weight - Most Recent: 178 lb 12.8 oz I&O - Last 24 hours: Intake & Output 08/06/16 08/07/16 08/07/16 22:59 06:59 14:59 Intake Total 540 455 120 Output Total 300 Balance 540 455 -180 Lab Results - Last 24 hrs: Laboratory Results - last 24 hr 08/07/16 08/07/16 Range/Units 05:34 05:34 WBC 12.2 H (4.5-11.0) K/uL RBC 4.02 L (4.30-5.90) M/uL Hgb 9.7 L (12.0-15.0) g/dL Hct 29.2 L (40.0-54.0) % MCV 73 L (80-98) fL MCH 24 L (27-31) pg MCHC 33 (32-36) % Plt Count 392 (150-400) K/uL Sodium 138 L (140-148) mmol/L Potassium 3.7 (3.6-5.2) mmol/L Chloride 102 (100-108) mmol/L Carbon Dioxide 28 (21-32) mmol/L Anion Gap 11.7 (5.0-14.0) mmol/L BUN 20 H (7-18) mg/dL Creatinine 1.2 (0.8-1.3) mg/dL Est Cr Clr Drug Dosing 49.97 mL/min Estimated GFR (MDRD) 58 L (>60) Glucose 88 (74-106) mg/dL Calcium 7.8 L (8.5-10.1) mg/dL Med Orders - Current: Current Medications Bisacodyl (Dulcolax) 10 mg RECTAL BID PRN PRN Reason: Constipation Last Admin: 08/06/16 07:13 Dose: 10 mg Diphenhydramine HCl (Benadryl) 25 - 50 mg IVPUSH Q4H PRN PRN Reason: ITCH Last Admin: 08/04/16 23:57 Dose: 25 mg Enoxaparin Sodium (Lovenox) 40 mg SUBCUT DAILY [facility] Last Admin: 08/07/16 08:58 Dose: 40 mg Furosemide (Lasix) 10 mg IVPUSH DAILY [facility] Last Admin: 08/07/16 08:58 Dose: 10 mg Hydromorphone HCl (Dilaudid) 1 mg IVPUSH Q1H PRN PRN Reason: Abdominal Pain Last Admin: 08/06/16 03:42 Dose: 1 mg Dextrose/Sodium Chloride (Dextrose 5%-1/2 Ns) 1,000 mls @ 25 mls/hr IV ASDIRECTED [facility] Ketorolac Tromethamine (Toradol) 15 mg IVPUSH Q6H [facility] Stop: 08/11/16 00:01 Last Admin: 08/07/16 12:05 Dose: 15 mg Metoclopramide HCl (Reglan) 10 mg IVPUSH Q6H PRN PRN Reason: NAUSEA Ondansetron HCl (Zofran) 4 mg IVPUSH Q6H PRN PRN Reason: Nausea/Vomiting Last Admin: 08/02/16 00:37 Dose: 4 mg Pantoprazole Sodium (Protonix Iv) 40 mg IVPUSH Q12H [facility] Last Admin: 08/07/16 05:28 Dose: 40 mg Prochlorperazine Edisylate (Compazine) 5 mg IVPUSH Q6H PRN PRN Reason: Nausea/Vomiting Last Admin: 08/02/16 02:57 Dose: 5 mg Sodium Chloride (Saline Flush) 10 ml FLUSH ASDIRECTED PRN PRN Reason: Keep Vein Open Discontinued Medications Acetaminophen/Codeine Phosphate (Tylenol With Codeine No.3 300mg/30mg) 1 - 2 tab PO Q4H PRN PRN Reason: Pain Last Admin: 07/31/16 21:29 Dose: 2 tab Bisacodyl (Dulcolax) 10 mg PO ONETIME ONE Stop: 07/30/16 09:01 Last Admin: 07/30/16 12:52 Dose: 10 mg Bisacodyl (Dulcolax) 10 mg PO ONETIME ONE Stop: 07/30/16 20:01 Last Admin: 07/30/16 20:40 Dose: 10 mg Bupivacaine HCl (Marcaine 0.5%) Confirm Administered Dose 50 ml .ROUTE .STK-MED ONE Stop: 08/05/16 08:22 Cefoxitin Sodium (Mefoxin) Confirm Administered Dose 2 gm .ROUTE .STK-MED ONE Stop: 08/02/16 12:12 Dexamethasone (Dexamethasone) Confirm Administered Dose 4 mg .ROUTE .STK-MED ONE Stop: 08/02/16 09:37 Ephedrine Sulfate (Ephedrine Sulfate) Confirm Administered Dose 50 mg .ROUTE .STK-MED ONE Stop: 08/02/16 12:15 Fentanyl (Sublimaze) 50 mcg IVPUSH ONETIME ONE Stop: 07/30/16 03:49 Last Admin: 07/30/16 04:07 Dose: 50 mcg Fentanyl (Sublimaze) 100 mcg .ROUTE .STK-MED ONE Stop: 07/31/16 10:01 Fentanyl (Sublimaze) Confirm Administered Dose 250 mcg .ROUTE .STK-MED ONE Stop: 08/02/16 09:36 Fentanyl (Sublimaze) Confirm Administered Dose 100 mcg .ROUTE .STK-MED ONE Stop: 08/02/16 12:03 Fentanyl (Sublimaze) Confirm Administered Dose 100 mcg .ROUTE .STK-MED ONE Stop: 08/05/16 07:22 Furosemide (Lasix) 10 mg PO DAILY [facility] Last Admin: 08/02/16 09:10 Dose: Not Given Furosemide (Lasix) 10 mg IVPUSH ONETIME ONE Stop: 08/04/16 11:01 Last Admin: 08/04/16 12:09 Dose: 10 mg Glycopyrrolate () Confirm Administered Dose 1 mg .ROUTE .STK-MED ONE Stop: 08/02/16 09:37 Hydromorphone HCl (Dilaudid) 0.5 mg IVPUSH Q1H PRN PRN Reason: Pain Last Admin: 08/02/16 06:07 Dose: 0.5 mg Hydromorphone HCl (Dilaudid) 0.5 mg IVPUSH Q30M PRN PRN Reason: Pain Last Admin: 08/02/16 10:55 Dose: 0.5 mg Lactated Ringer's (Ringers, Lactated) 1,000 mls @ 999 mls/hr IV BOLUS ONE Stop: 07/30/16 04:47 Last Admin: 07/30/16 04:04 Dose: 999 mls/hr Dextrose/Sodium Chloride (Dextrose 5%-Normal Saline) 1,000 mls @ 75 mls/hr IV ASDIRECTED [facility] Last Admin: 08/02/16 02:31 Dose: 75 mls/hr Potassium Chloride 20 meq/Lidocaine HCl 2 ml/ Sodium Chloride 112 mls @ 56 mls/ hr IV Q2H [facility] Stop: 08/01/16 18:59 Last Admin: 08/01/16 16:45 Dose: 56 mls/hr Fentanyl 2,500 mcg/ Sodium (Chloride) 250 mls @ 0 mls/hr EPIDUR TITRATE [facility]; Titrate PRN Reason: Protocol Last Admin: 08/04/16 07:45 Dose: 6 ml/hr, 6 mls/hr Sodium Chloride (Normal Saline) Confirm Administered Dose 10 mls @ as directed .ROUTE .STK-MED ONE Stop: 08/02/16 12:03 Lactated Ringer's (Ringers, Lactated) Confirm Administered Dose 1,000 mls @ as directed .ROUTE .STK-MED ONE Stop: 08/02/16 12:17 Lactated Ringer's (Ringers, Lactated) Confirm Administered Dose 1,000 mls @ as directed .ROUTE .STK-MED ONE Stop: 08/02/16 14:02 Potassium Chloride/Dextrose/Sod Cl (D5 1/2 Ns W/ 20 Meq/L Kcl) 1,000 mls @ 150 mls/hr IV ASDIRECTED [facility] Last Admin: 08/03/16 07:24 Dose: 125 mls/hr Cefoxitin Sodium 2 gm/ Sodium (Chloride) 50 mls @ 100 mls/hr IV Q8H [facility] Stop: 08/03/16 04:29 Last Admin: 08/03/16 05:37 Dose: 100 mls/hr Lactated Ringer's (Ringers, Lactated) 250 mls @ 250 mls/hr IV BOLUS ONE Stop: 08/02/16 17:21 Last Admin: 08/02/16 16:30 Dose: 250 mls/hr Hetastarch/Sodium Chloride (Hetastarch 6% In Normal Saline) 500 mls @ 500 mls/ hr IV ONETIME ONE Stop: 08/02/16 19:47 Last Admin: 08/02/16 19:11 Dose: 500 mls/hr Lactated Ringer's (Ringers, Lactated) 250 mls @ 250 mls/hr IV BOLUS ONE Stop: 08/03/16 01:08 Last Admin: 08/03/16 00:29 Dose: 250 mls/hr Dextrose/Sodium Chloride (Dextrose 5%-1/2 Ns) 1,000 mls @ 150 mls/hr IV ASDIRECTED [facility] Last Admin: 08/05/16 10:15 Dose: 150 mls/hr Acetaminophen 1,000 mg/ Premix 100 mls @ 400 mls/hr IV Q6H PRN PRN Reason: Pain Stop: 08/04/16 23:53 Last Admin: 08/04/16 13:49 Dose: 400 mls/hr Acetaminophen 1,000 mg/ Premix 100 mls @ 400 mls/hr IV Q6H PRN PRN Reason: Pain Stop: 08/05/16 23:58 Last Admin: 08/05/16 15:29 Dose: 400 mls/hr Ketorolac Tromethamine (Toradol) 30 mg IVPUSH Q6H [facility] Stop: 08/11/16 06:01 Last Admin: 08/06/16 07:04 Dose: 30 mg Lidocaine/Epinephrine (Xylocaine 1% With Epinephrine 1:100,000) Confirm Administered Dose 50 ml .ROUTE .STK-MED ONE Stop: 08/05/16 08:23 Lorazepam (Ativan) 0.5 mg IVPUSH ONETIME ONE Stop: 07/30/16 03:49 Last Admin: 07/30/16 04:12 Dose: 0.5 mg Midazolam HCl (Versed 1 Mg/Ml) 2 mg .ROUTE .STK-MED ONE Stop: 07/31/16 10:01 Naloxone HCl (Narcan) 0.1 mg IVPUSH Q5M PRN PRN Reason: RESP RATE LESS THAN 6/MINUTE Neostigmine Methylsulfate (Neostigmine) Confirm Administered Dose 5 mg .ROUTE .STK-MED ONE Stop: 08/02/16 09:37 Ondansetron HCl (Zofran) Confirm Administered Dose 4 mg .ROUTE .STK-MED ONE Stop: 08/02/16 09:37 Pantoprazole Sodium (Protonix) 40 mg PO BIDAC [facility] Last Admin: 08/02/16 16:40 Dose: Not Given Polyethylene Glycol (Miralax) 238 gm PO ONETIME ONE Stop: 07/30/16 17:01 Last Admin: 07/30/16 17:31 Dose: 238 gm Potassium Chloride (Klor-Con M20) 40 meq PO ONETIME ONE Stop: 08/01/16 15:01 Last Admin: 08/01/16 14:03 Dose: 40 meq Propofol (Diprivan 20 Ml) 200 mg .ROUTE .STK-MED ONE Stop: 07/31/16 10:01 Propofol (Diprivan 20 Ml) 200 mg .ROUTE .STK-MED ONE Stop: 07/31/16 10:01 Propofol (Diprivan 20 Ml) Confirm Administered Dose 200 mg .ROUTE .STK-MED ONE Stop: 08/02/16 09:37 Propofol (Diprivan 20 Ml) Confirm Administered Dose 200 mg .ROUTE .STK-MED ONE Stop: 08/05/16 07:21 Rocuronium [place] (Zemuron) Confirm Administered Dose 50 mg .ROUTE .STK-MED ONE Stop: 08/02/16 09:37 Scopolamine (Transderm-Scop) Confirm Administered Dose 1.5 mg .ROUTE .STK-MED ONE Stop: 08/02/16 09:37 Senna (Senna) 17.2 mg PO BEDTIME [facility] Last Admin: 08/01/16 20:38 Dose: 17.2 mg Sodium Chloride (Saline Flush) 10 ml FLUSH ASDIRECTED PRN PRN Reason: Keep Vein Open Last Admin: 07/30/16 04:00 Dose: 10 ml Succinylcholine Chloride (Succinylcholine In Ns Pf) Confirm Administered Dose 200 mg .ROUTE .STK-MED ONE Stop: 08/02/16 09:37 Tamsulosin HCl (Flomax) 0.4 mg PO DAILY [facility] Last Admin: 08/02/16 09:10 Dose: Not Given Trazodone HCl (Trazodone) 50 mg PO BEDTIME [facility] Last Admin: 08/01/16 20:45 Dose: 50 mg *Q Meaningful Use (DIS) - VTE *Q VTE Criteria *Q: - Stroke *Q Stroke Criteria *Q: - AMI *Q AMI Criteria *Q:
== END 2016-08-07 15:47 | DRG 330 ==
LOC: JP.ED 02:50 → JP.2SS 08:10 → JP.MS 08-05 00:59
PROVIDERS: ADMIT Internal Medicine; ATTEND Surgery
PROC: 0DJD8ZZ Inspection of Lower Intestinal Tract, Via Natural or Artificial Opening Endoscopic (ICD-10-PCS; principal; 2016-07-31)
PROC: 07BB0ZX Excision of Mesenteric Lymphatic, Open Approach, Diagnostic (ICD-10-PCS; 2016-08-02)
PROC: 0W9J0ZX Drainage of Pelvic Cavity, Open Approach, Diagnostic (ICD-10-PCS; 2016-08-02)
PROC: 0DTF0ZZ Resection of Right Large Intestine, Open Approach (ICD-10-PCS; 2016-08-02)
PROC: 30233N1 Transfusion of Nonautologous Red Blood Cells into Peripheral Vein, Percutaneous Approach (ICD-10-PCS; 2016-08-04)
PROC: 0WQF0ZZ Repair Abdominal Wall, Open Approach (ICD-10-PCS; 2016-08-05)
DX: C18.2 Malignant neoplasm of ascending colon (principal); K63.9 Disease of intestine, unspecified; R18.8 Other ascites; I13.0 Hypertensive heart and chronic kidney disease with heart failure and stage 1 through stage 4 chronic kidney disease, or unspecified chronic kidney disease; R59.0 Localized enlarged lymph nodes; Z48.1 Encounter for planned postprocedural wound closure; E87.6 Hypokalemia; D64.9 Anemia, unspecified; K57.30 Diverticulosis of large intestine without perforation or abscess without bleeding; I50.9 Heart failure, unspecified; N18.9 Chronic kidney disease, unspecified; G47.00 Insomnia, unspecified; M54.9 Dorsalgia, unspecified; G89.29 Other chronic pain; M19.90 Unspecified osteoarthritis, unspecified site; N40.0 Benign prostatic hyperplasia without lower urinary tract symptoms; E78.5 Hyperlipidemia, unspecified; H54.7 Unspecified visual loss; H91.90 Unspecified hearing loss, unspecified ear; E66.9 Obesity, unspecified; Z68.30 Body mass index [BMI] 30.0-30.9, adult; Z79.82 Long term (current) use of aspirin; G60.9 Hereditary and idiopathic neuropathy, unspecified; Z96.659 Presence of unspecified artificial knee joint
CPT/HCPCS: 36415; 80048; 85025; 96361; 96374; 96375; 99283; J2060; J3010; J7050; J7120; 36430; 71020; 71020-26; 80053; 81001; 82378; 85027; 86850; 86900; 86901; 86920; 86922; 87070; 87075; 87205; 88112; 88305; 88309; 88341; 88342; 93005; 94762; 99284; A9270-GY; C9113; J0131; J0694; J0780; J1100; J1170; J1200; J1650; J1885; J1940; J2250; J2405; J2704; J3480; J7030; P9016

== ENCOUNTER 2016-08-11 12:16 | Inpatient (IN) | payer MEDICARE, BC ==
[2016-08-11] MEDS ORDERED: Sodium Chloride 0.9% 10 ML Syringe FLUSH PRN ×4 (12:48→15:10)
[2016-08-11] MEDS ORDERED: Naloxone 0.4 MG/ML SDV ONE (13:02)
[2016-08-11] MEDS ORDERED: Norepinephrine 4 MG in Dextrose 5% in Water 246 ML IV SCH ×2 (13:30)
[2016-08-11] MEDS ORDERED: Piperacillin/Tazobactam 4.5 GM in Sodium Chloride 0.9% 100 ML IV SCH ×2 (14:00→22:00)
[2016-08-11] MEDS ORDERED: Lactated Ringers 1,000 ML IV SCH ×2 (14:00)
--- NOTE | 2016-08-11 14:04 | EDM.PDOC ---
ED HPI GENERAL MEDICAL PROBLEM - General Chief Complaint: General Stated Complaint: WEAKNESS CONFUSION Time Seen by Provider: 08/11/16 12:28 Source of Information: Reports: RN Notes Reviewed, Other (halfway) History Limitations: Reports: Altered Mental Status (GCS of 7) - History of Present Illness INITIAL COMMENTS - FREE TEXT/NARRATIVE: For increasing confusion and weakness, by the time I had the opportunity or the nursing staff had opportunity to assess this gentleman he was obtunded GCS of 7 he is a DO NOT INTUBATE with resuscitation okay. History he recently had a CT scan of the abdomen 1 month ago showed thickened: Concern for neoplasm underwent colonoscopy with biopsy which subsequently led to a delifna-colectomy approximate 16: Removed for colon cancer. He was admitted to [facility] for further rehabilitation apparently by report from nursing staff at the [place] was doing well yesterday feeding himself and then last night complained of some abdominal pain was provided tramadol and then this morning progressively more weak and more confused [facility] was contacted for transport to the ED. He rapidly declined in transport - Related Data Allergies Allergy/AdvReac Type Severity Reaction Status Date / Time No Known Allergies Allergy Verified 07/29/16 11:36 Home Meds: Home Meds Diclofenac Sodium [Voltaren] 75 mg PO BID 10/15/13 [History] Furosemide 10 mg PO DAILY 10/15/13 [History] Gabapentin 800 mg PO BID 10/15/13 [History] Gluc 2KCl/Chondr/Juan R Hy/Hy Ac [Glucosamine & Chondroitin Cap] 1 tab PO BID [History] Simvastatin [Zocor] 40 mg PO BEDTIME 10/15/13 [History] Aspirin [Adult Low Dose Aspirin EC] 81 mg PO DAILY 01/05/16 [History] Magnesium Oxide [Magnesium] 400 mg PO BID 01/05/16 [History] Melatonin 10 mg PO BEDTIME 01/05/16 [History] Multivitamin [Multivitamins] 1 tab PO DAILY 01/05/16 [History] Tamsulosin HCl [Flomax] 0.4 mg PO DAILY 01/05/16 [History] Zinc 50 mg PO DAILY 01/05/16 [History] traZODone HCl [Trazodone HCl] 50 mg PO BEDTIME 01/05/16 [History] Pantoprazole [ProTONIX] 40 mg PO BIDAC 04/17/16 [History] Past Medical History HEENT History: Reports: Cataract, Hard of Hearing, Impaired Vision Cardiovascular History: Reports: Heart Failure, High Cholesterol, Hypertension Respiratory History: Reports: SOB Other Respiratory History: SOB with exertion Gastrointestinal History: Reports: Other (See Below) Other Gastrointestinal History: Recent CT of abd/pelvis on 07/20/16 showed lesion in accending colon Genitourinary History: Reports: BPH Musculoskeletal History: Reports: Back Pain, Chronic, Osteoarthritis, Other ( See Below) Other Musculoskeletal History: spinal stnosis Neurological History: Reports: Other (See Below) Other Neuro History: hereditary and idiopathic neuropathy Oncologic (Cancer) History: Reports: Colon - Infectious Disease History Infectious Disease History: Reports: Chicken Pox, Measles - Past Surgical History HEENT Surgical History: Reports: Cataract Surgery GI Surgical History: Reports: Cholecystectomy, Other (See Below) Other GI Surgeries/Procedures: spleenectomy Neurological Surgical History: Reports: Lumbar Spine Other Neurological Surgeries/Procedures: 1993 & 2015 Musculoskeletal Surgical History: Reports: Knee Replacement Social & Family History - Tobacco Use Smoking Status *Q: Never Smoker Second Hand Smoke Exposure: No - Caffeine Use Caffeine Use: Reports: Coffee - Alcohol Use Days Per Week of Alcohol Use: 0 - Recreational Drug Use Recreational Drug Use: No ED ROS GENERAL - Review of Systems Review Of Systems: Unable To Obtain ED EXAM, GENERAL - Physical Exam Exam: See Below Exam Limited By: Altered Mental Status (GCS of 7) General Appearance: Obtunded Eye Exam: Bilateral Eye: Normal Inspection (Fixed and constricted) Throat/Mouth: No Airway Compromise, Other (Dry) Neck: Normal Inspection, Supple, Non-Tender, Full Range of Motion Respiratory/Chest: Respiratory Distress, Decreased Breath Sounds, Other (Hypoxic ) Cardiovascular: Regular Rate, Rhythm, No Murmur GI/Abdominal: Soft, Guarding, Tender, Other (Surgical wound clean dry and intact ) Extremities: Normal Inspection, No Pedal Edema Neurological: Unresponsive Course - Vital Signs Last Recorded V/S: Last Vital Signs Temp 96.4 F 08/11/16 13:45 Pulse 85 08/11/16 14:13 Resp 20 08/11/16 14:13 BP 84/48 L 08/11/16 14:13 Pulse Ox 92 L 08/11/16 14:13 - Orders/Labs/Meds Orders: Active Orders 24 hr Category Date Time Status EKG Documentation Completion [RC] ASDIRECTED Care 08/11/16 12:49 Active Peripheral IV Care [RC] . DIRECTED Care 08/11/16 12:49 Active Abdomen Pelvis wo Cont [CT] Stat Exams 08/11/16 13:36 Taken Chest 1V Frontal [CR] Urgent Exams 08/11/16 12:48 Taken Head wo Cont [CT] Stat Exams 08/11/16 13:04 Stop Req CULTURE BLOOD [BC] Urgent Lab 08/11/16 13:42 Ordered CULTURE BLOOD [BC] Urgent Lab 08/11/16 13:42 Ordered UA W/MICROSCOPIC [URIN] Urgent Lab 08/11/16 12:48 Uncollected Lactated Ringers [Ringers, Lactated] 1,000 ml Med 08/11/16 14:00 Active IV ASDIRECTED Lactated Ringers [Ringers, Lactated] 1,000 ml Med 08/11/16 14:00 Active IV BOLUS Norepinephrine [Levophed] 4 mg Med 08/11/16 13:30 Active Dextrose 5% in Water 246 ml IV TITRATE Piperacillin/Tazobactam [Zosyn] 4.5 gm Med 08/11/16 14:00 Active Sodium Chloride 0.9% [Normal Saline] 100 ml IV Q6H Sodium Chloride 0.9% [Saline Flush] Med 08/11/16 12:48 Active 10 ml FLUSH ASDIRECTED PRN Sodium Chloride 0.9% [Saline Flush] Med 08/11/16 12:48 Active 10 ml FLUSH ASDIRECTED PRN Blood Culture x2 Reflex Set [OM.PC] Urgent Oth 08/11/16 13:42 Ordered Peripheral IV Insertion Adult [OM.PC] Stat Oth 08/11/16 12:48 Ordered EKG 12 Lead [EK] Urgent Ther 08/11/16 12:48 Ordered Medication Orders Norepinephrine Bitartrate 4 mg (/ Dextrose/Water) 250 mls @ 7.5 mls/hr IV TITRATE RONN; 2 MCG/MIN PRN Reason: Protocol Piperacillin Sod/Tazobactam (Sod 4.5 gm/ Sodium Chloride) 100 mls @ 200 mls/hr IV Q6H RONN Lactated Ringer's (Ringers, Lactated) 1,000 mls @ 125 mls/hr IV ASDIRECTED RONN Lactated Ringer's (Ringers, Lactated) 1,000 mls @ 999 mls/hr IV BOLUS RONN Sodium Chloride (Saline Flush) 10 ml FLUSH ASDIRECTED PRN PRN Reason: Keep Vein Open Sodium Chloride (Saline Flush) 10 ml FLUSH ASDIRECTED PRN PRN Reason: Keep Vein Open Labs: Laboratory Tests 08/11/16 08/11/16 08/11/16 Range/Units 12:48 12:48 12:48 WBC 8.9 (4.5-11.0) K/uL RBC 4.61 (4.30-5.90) M/uL Hgb 11.0 L (12.0-15.0) g/dL Hct 34.1 L (40.0-54.0) % MCV 74 L (80-98) fL MCH 24 L (27-31) pg MCHC 32 (32-36) % Plt Count 468 H (150-400) K/uL Add Manual Diff Yes Neutrophils % (Manual) 36 (36-66) % Band Neutrophils % 50 H (5-11) % Lymphocytes % (Manual) 9 L (24-44) % Monocytes % (Manual) 5 (2-6) % Poikilocytosis Few Target Cells Few Ovalocytes Few Caruthers Cells Few Puncture Site ABG pH (7.350-7.450) ABG pCO2 (35.0-42.0) mmHg ABG pO2 (75.0-100.0) mmHg ABG HCO3 (22.0-26.0) mmol/L ABG Total CO2 (23.0-27.0) mmol/L ABG O2 Saturation (95.0-98.0) % ABG O2 Content (15.0-23.0) %vol ABG Base Excess mm/L ABG Hemoglobin (13.5-18.0) g/dL ABG Oxyhemoglobin % ABG Carboxyhemoglobin (0.0-1.6) % ABG Methemoglobin % Lux Test O2 Delivery Device Oxygen Flow Rate L Sodium 142 (140-148) mmol/L Potassium 5.0 (3.6-5.2) mmol/L Chloride 102 (100-108) mmol/L Carbon Dioxide 25 (21-32) mmol/L Anion Gap 15.0 H (5.0-14.0) mmol/L BUN 47 H D (7-18) mg/dL Creatinine 2.9 H D (0.8-1.3) mg/dL Est Cr Clr Drug Dosing TNP Estimated GFR (MDRD) 21 L (>60) Glucose 62 L (74-106) mg/dL Lactic Acid 8.4 H (0.4-2.0) mmol/L Calcium 8.3 L (8.5-10.1) mg/dL Phosphorus 8.4 H (2.5-4.9) mg/dL Magnesium 2.7 H (1.8-2.4) mg/dL Total Bilirubin 0.5 D (0.2-1.0) mg/dL AST 39 H (15-37) U/L ALT 33 D (12-78) U/L Alkaline Phosphatase 83 (46-116) U/L Ammonia (11-32) mmol/L Creatine Kinase (39-308) U/L Troponin I < 0.017 (0.000-0.056) ng/mL C-Reactive Protein (0.0-0.3) mg/dL Total Protein 5.7 L (6.4-8.2) g/dL Albumin 1.7 L (3.4-5.0) g/dL Globulin 4.0 H (2.3-3.5) g/dL Albumin/Globulin Ratio 0.4 L (1.2-2.2) 08/11/16 08/11/16 08/11/16 Range/Units 12:55 13:29 13:29 WBC (4.5-11.0) K/uL RBC (4.30-5.90) M/uL Hgb (12.0-15.0) g/dL Hct (40.0-54.0) % MCV (80-98) fL MCH (27-31) pg MCHC (32-36) % Plt Count (150-400) K/uL Add Manual Diff Neutrophils % (Manual) (36-66) % Band Neutrophils % (5-11) % Lymphocytes % (Manual) (24-44) % Monocytes % (Manual) (2-6) % Poikilocytosis Target Cells Ovalocytes Caruthers Cells Puncture Site Lt radial ABG pH 7.317 L (7.350-7.450) ABG pCO2 43.3 H (35.0-42.0) mmHg ABG pO2 115.0 H (75.0-100.0) mmHg ABG HCO3 21.5 L (22.0-26.0) mmol/L ABG Total CO2 20.2 L (23.0-27.0) mmol/L ABG O2 Saturation 97.1 (95.0-98.0) % ABG O2 Content 14.7 L (15.0-23.0) %vol ABG Base Excess -3.9 mm/L ABG Hemoglobin 10.7 L (13.5-18.0) g/dL ABG Oxyhemoglobin 96.0 % ABG Carboxyhemoglobin 0.4 (0.0-1.6) % ABG Methemoglobin 0.7 % Lux Test Pass O2 Delivery Device Non rebr mask Oxygen Flow Rate 15 L Sodium (140-148) mmol/L Potassium (3.6-5.2) mmol/L Chloride (100-108) mmol/L Carbon Dioxide (21-32) mmol/L Anion Gap (5.0-14.0) mmol/L BUN (7-18) mg/dL Creatinine (0.8-1.3) mg/dL Est Cr Clr Drug Dosing Estimated GFR (MDRD) (>60) Glucose (74-106) mg/dL Lactic Acid (0.4-2.0) mmol/L Calcium (8.5-10.1) mg/dL Phosphorus (2.5-4.9) mg/dL Magnesium (1.8-2.4) mg/dL Total Bilirubin (0.2-1.0) mg/dL AST (15-37) U/L ALT (12-78) U/L Alkaline Phosphatase (46-116) U/L Ammonia 29 (11-32) mmol/L Creatine Kinase 130 (39-308) U/L Troponin I (0.000-0.056) ng/mL C-Reactive Protein (0.0-0.3) mg/dL Total Protein (6.4-8.2) g/dL Albumin (3.4-5.0) g/dL Globulin (2.3-3.5) g/dL Albumin/Globulin Ratio (1.2-2.2) 08/11/ Range/Units 13:42 WBC (4.5-11.0) K/uL RBC (4.30-5.90) M/uL Hgb (12.0-15.0) g/dL Hct (40.0-54.0) % MCV (80-98) fL MCH (27-31) pg MCHC (32-36) % Plt Count (150-400) K/uL Add Manual Diff Neutrophils % (Manual) (36-66) % Band Neutrophils % (5-11) % Lymphocytes % (Manual) (24-44) % Monocytes % (Manual) (2-6) % Poikilocytosis Target Cells Ovalocytes Caruthers Cells Puncture Site ABG pH (7.350-7.450) ABG pCO2 (35.0-42.0) mmHg ABG pO2 (75.0-100.0) mmHg ABG HCO3 (22.0-26.0) mmol/L ABG Total CO2 (23.0-27.0) mmol/L ABG O2 Saturation (95.0-98.0) % ABG O2 Content (15.0-23.0) %vol ABG Base Excess mm/L ABG Hemoglobin (13.5-18.0) g/dL ABG Oxyhemoglobin % ABG Carboxyhemoglobin (0.0-1.6) % ABG Methemoglobin % Lux Test O2 Delivery Device Oxygen Flow Rate L Sodium (140-148) mmol/L Potassium (3.6-5.2) mmol/L Chloride (100-108) mmol/L Carbon Dioxide (21-32) mmol/L Anion Gap (5.0-14.0) mmol/L BUN (7-18) mg/dL Creatinine (0.8-1.3) mg/dL Est Cr Clr Drug Dosing Estimated GFR (MDRD) (>60) Glucose (74-106) mg/dL Lactic Acid (0.4-2.0) mmol/L Calcium (8.5-10.1) mg/dL Phosphorus (2.5-4.9) mg/dL Magnesium (1.8-2.4) mg/dL Total Bilirubin (0.2-1.0) mg/dL AST (15-37) U/L ALT (12-78) U/L Alkaline Phosphatase (46-116) U/L Ammonia (11-32) mmol/L Creatine Kinase (39-308) U/L Troponin I (0.000-0.056) ng/mL C-Reactive Protein 31.36 H (0.0-0.3) mg/dL Total Protein (6.4-8.2) g/dL Albumin (3.4-5.0) g/dL Globulin (2.3-3.5) g/dL Albumin/Globulin Ratio (1.2-2.2) Meds: Medications Generic Name Dose Route Start Last Admin Trade Name Aliya PRN Reason Stop Dose Admin Norepinephrine Bitartrate 4 mg 250 mls @ 7.5 mls/hr 08/11/16 13:30 / Dextrose/Water IV TITRATE RONN Protocol 2 MCG/MIN Piperacillin Sod/Tazobactam 100 mls @ 200 mls/hr 08/11/16 14:00 Sod 4.5 gm/ Sodium Chloride IV Q6H RONN Lactated Ringer's 1,000 mls @ 125 mls/hr 08/11/16 14:00 Ringers, Lactated IV ASDIRECTED RONN Lactated Ringer's 1,000 mls @ 999 mls/hr 08/11/16 14:00 Ringers, Lactated IV BOLUS RONN Sodium Chloride 10 ml 08/11/16 12:48 Saline Flush FLUSH ASDIRECTED PRN Keep Vein Open Sodium Chloride 10 ml 08/11/16 12:48 Saline Flush FLUSH ASDIRECTED PRN Keep Vein Open Discontinued Medications Generic Name Dose Route Start Last Admin Trade Name Aliya PRN Reason Stop Dose Admin Naloxone HCl Confirm 08/11/16 12:57 Narcan Administered 08/11/16 12:58 Dose 0.4 mg .ROUTE .STK-MED ONE Naloxone HCl Confirm 08/11/16 13:02 Narcan Administered 08/11/16 13:03 Dose 0.4 mg .ROUTE .STK-MED ONE Departure - Departure Time of Disposition: 14:22 Disposition: Admitted As Inpatient 66 Condition: Critical Clinical Impression: Septic shock, Pneumonia - Discharge Information Forms: ED Department Discharge - My Orders Last 24 Hours: My Active Orders 08/11/16 12:48 Chest 1V Frontal [CR] Urgent UA W/MICROSCOPIC [URIN] Urgent Sodium Chloride 0.9% [Saline Flush] 10 ml FLUSH ASDIRECTED PRN Sodium Chloride 0.9% [Saline Flush] 10 ml FLUSH ASDIRECTED PRN Peripheral IV Insertion Adult [OM.PC] Stat EKG 12 Lead [EK] Urgent 08/11/16 12:49 EKG Documentation Completion [RC] ASDIRECTED Peripheral IV Care [RC] . DIRECTED 08/11/16 13:04 Head wo Cont [CT] Stat 08/11/16 13:30 Norepinephrine [Levophed] 4 mg Dextrose 5% in Water 246 ml IV TITRATE 08/11/16 13:36 Abdomen Pelvis wo Cont [CT] Stat 08/11/16 13:42 CULTURE BLOOD [BC] Urgent CULTURE BLOOD [BC] Urgent Blood Culture x2 Reflex Set [OM.PC] Urgent 08/11/16 14:00 Lactated Ringers [Ringers, Lactated] 1,000 ml IV ASDIRECTED Lactated Ringers [Ringers, Lactated] 1,000 ml IV BOLUS Piperacillin/Tazobactam [Zosyn] 4.5 gm Sodium Chloride 0.9% [Normal Saline] 100 ml IV Q6H - Assessment/Plan Last 24 Hours: My Active Orders 08/11/16 12:48 Chest 1V Frontal [CR] Urgent UA W/MICROSCOPIC [URIN] Urgent Sodium Chloride 0.9% [Saline Flush] 10 ml FLUSH ASDIRECTED PRN Sodium Chloride 0.9% [Saline Flush] 10 ml FLUSH ASDIRECTED PRN Peripheral IV Insertion Adult [OM.PC] Stat EKG 12 Lead [EK] Urgent 08/11/16 12:49 EKG Documentation Completion [RC] ASDIRECTED Peripheral IV Care [RC] . DIRECTED 08/11/16 13:04 Head wo Cont [CT] Stat 08/11/16 13:30 Norepinephrine [Levophed] 4 mg Dextrose 5% in Water 246 ml IV TITRATE 08/11/16 13:36 Abdomen Pelvis wo Cont [CT] Stat 08/11/16 13:42 CULTURE BLOOD [BC] Urgent CULTURE BLOOD [BC] Urgent Blood Culture x2 Reflex Set [OM.PC] Urgent 08/11/16 14:00 Lactated Ringers [Ringers, Lactated] 1,000 ml IV ASDIRECTED Lactated Ringers [Ringers, Lactated] 1,000 ml IV BOLUS Piperacillin/Tazobactam [Zosyn] 4.5 gm Sodium Chloride 0.9% [Normal Saline] 100 ml IV Q6H Plan: Assessment Acuity = acute Site and laterality = septic shock complicated with community-acquired pneumonia in a gentleman with recent surgery history of hemicolectomy secondary to colon cancer Etiology = bacterial cause Manifestations = hypoxic, hypotensive, obtunded Location of injury = home Lab values = CBC reveals a normal white count however 50% bands hemoglobin low 11.0 consistent microchromic anemia, ABG reveals pH 7.31 PCO2 43.3 PO2 of 1:15 and a bicarbonate of 21.5 consistent with a primary respiratory acidosis and secondary metabolic acidosis creatinine elevated at 2.9 consistent with acute renal failure stage GIV lactic acid elevated at 8.4 consistent with lactic acidosis phosphorus elevated at 8.4 consistent with the hyperphosphatemia magnesium low at 2.7 consistent hypomagnesemia troponin was negative albumin low at 1.7 consistent hypoalbuminemia, blood cultures, urinalysis CT scan of the abdomen all pending Plan Discuss case with his primary care provider Dr. Delcid who agreed to come and evaluate him in the emergency department for admission, review of his CODE STATUS he is a DO NOT INTUBATE but resuscitation is okay per his family members and POLST This note was dictated using [employer] voice recognition software please call with any questions.
[2016-08-11] MEDS ORDERED: Sodium Chloride 0.9% 1,000 ML IV SCH ×3 (14:30→22:00)
[2016-08-11] MEDS: Naloxone 0.4 MG/ML SDV ONE ×2 (14:36→15:22)
[2016-08-11] MEDS ORDERED: Naloxone 0.4 MG/ML SDV IVPUSH PRN (14:37)
--- NOTE | 2016-08-11 14:56 | PCM.HP ---
H&P History of Present Illness - General Date of Service: 08/11/16 Admit Problem/Dx: Admission Diagnosis/Problem Admission Diagnosis/Problem Septicemia Source of Information: EMS History Limitations: Reports: Altered Mental Status - History of Present Illness Initial Comments - Free Text/Narative: He was recently in the Hospital and discharged S/P surgery. He became confused this morning and a drop in BP and brought to the ER. He refused to come by Ambulance and brought to the ER by [facility]. He did have a elevated WMC post surgery for 4 days. He had a colon resection as he had a colonic mass. Duration of Symptoms: Reports: Day(s): Associated Symptoms: Reports: Loss of Appetite - Related Data Allergies/Adverse Reactions: Allergies Allergy/AdvReac Type Severity Reaction Status Date / Time No Known Allergies Allergy Verified 07/29/16 11:36 Home Medications: Home Meds Diclofenac Sodium [Voltaren] 75 mg PO BID 10/15/13 [History] Furosemide 10 mg PO DAILY 10/15/13 [History] Gabapentin 800 mg PO BID 10/15/13 [History] Gluc 2KCl/Chondr/Juan R Hy/Hy Ac [Glucosamine & Chondroitin Cap] 1 tab PO BID [History] Simvastatin [Zocor] 40 mg PO BEDTIME 10/15/13 [History] Aspirin [Adult Low Dose Aspirin EC] 81 mg PO DAILY 01/05/16 [History] Magnesium Oxide [Magnesium] 400 mg PO BID 01/05/16 [History] Melatonin 10 mg PO BEDTIME 01/05/16 [History] Multivitamin [Multivitamins] 1 tab PO DAILY 01/05/16 [History] Tamsulosin HCl [Flomax] 0.4 mg PO DAILY 01/05/16 [History] Zinc 50 mg PO DAILY 01/05/16 [History] traZODone HCl [Trazodone HCl] 50 mg PO BEDTIME 01/05/16 [History] Pantoprazole [ProTONIX] 40 mg PO BIDAC 04/17/16 [History] Past Medical History HEENT History: Reports: Cataract, Hard of Hearing, Impaired Vision Cardiovascular History: Reports: Heart Failure, High Cholesterol, Hypertension Respiratory History: Reports: SOB Other Respiratory History: SOB with exertion Gastrointestinal History: Reports: Other (See Below) Other Gastrointestinal History: Recent CT of abd/pelvis on 07/20/16 showed lesion in accending colon Genitourinary History: Reports: BPH Musculoskeletal History: Reports: Back Pain, Chronic, Osteoarthritis, Other ( See Below) Other Musculoskeletal History: spinal stnosis Neurological History: Reports: Other (See Below) Other Neuro History: hereditary and idiopathic neuropathy Oncologic (Cancer) History: Reports: Colon - Infectious Disease History Infectious Disease History: Reports: Chicken Pox, Measles - Past Surgical History HEENT Surgical History: Reports: Cataract Surgery GI Surgical History: Reports: Cholecystectomy, Other (See Below) Other GI Surgeries/Procedures: spleenectomy Neurological Surgical History: Reports: Lumbar Spine Other Neurological Surgeries/Procedures: 1993 & 2015 Musculoskeletal Surgical History: Reports: Knee Replacement Social & Family History - Tobacco Use Smoking Status *Q: Never Smoker Second Hand Smoke Exposure: No - Caffeine Use Caffeine Use: Reports: Coffee - Alcohol Use Days Per Week of Alcohol Use: 0 - Recreational Drug Use Recreational Drug Use: No H&P Review of Systems - Review of Systems: Review Of Systems: See Below General: Reports: Weakness HEENT: Reports: No Symptoms Pulmonary: Reports: Shortness of Breath Cardiovascular: Reports: Dyspnea on Exertion, Blood Pressure Problem Gastrointestinal: Reports: Abdominal Pain Genitourinary: Reports: No Symptoms Skin: Reports: No Symptoms Neurological: Reports: Trouble Speaking Exam - Exam Exam: See Below - Vital Signs Vital Signs: Last Vital Signs Temp 96.4 F 08/11/16 14:22 Pulse 85 08/11/16 14:22 Resp 20 08/11/16 14:22 BP 92/36 L 08/11/16 14:41 Pulse Ox 92 L 08/11/16 14:22 Weight: 176 lb 5.917 oz - Exam General: Moderate Distress, Lethargic HEENT: PERRLA, Hearing Intact, Mucosa Moist & [place], Nares Patent, Normal Nasal Septum, Posterior Pharynx Clear, Conjunctiva Clear, EOMI, EACs Clear, TMs Clear Neck: Supple, Trachea Midline, 2 Lungs: Clear to Auscultation, Normal Respiratory Effort Cardiovascular: Regular Rate, Regular Rhythm Abdomen: Tenderness, Hypoactive Bowel Sounds Back Exam: Normal Inspection Extremities: Normal Inspection Peripheral Pulses: 1+: Radial (L), Radial (R) DTR: 1+: Bicep (L), Bicep (R) Psychiatric: Labile Mood - Patient Data Lab Results Last 24 hrs: Laboratory Results - last 24 hr 0608/11/16 08/11/16 Range/Units 12:48 12:48 12:48 WBC 8.9 (4.5-11.0) K/uL RBC 4.61 (4.30-5.90) M/uL Hgb 11.0 L (12.0-15.0) g/dL Hct 34.1 L (40.0-54.0) % MCV 74 L (80-98) fL MCH 24 L (27-31) pg MCHC 32 (32-36) % Plt Count 468 H (150-400) K/uL Add Manual Diff Yes Neutrophils % (Manual) 36 (36-66) % Band Neutrophils % 50 H (5-11) % Lymphocytes % (Manual) 9 L (24-44) % Monocytes % (Manual) 5 (2-6) % Poikilocytosis Few Target Cells Few Ovalocytes Few Jonnie Cells Few Puncture Site ABG pH (7.350-7.450) ABG pCO2 (35.0-42.0) mmHg ABG pO2 (75.0-100.0) mmHg ABG HCO3 (22.0-26.0) mmol/L ABG Total CO2 (23.0-27.0) mmol/L ABG O2 Saturation (95.0-98.0) % ABG O2 Content (15.0-23.0) %vol ABG Base Excess mm/L ABG Hemoglobin (13.5-18.0) g/dL ABG Oxyhemoglobin % ABG Carboxyhemoglobin (0.0-1.6) % ABG Methemoglobin % Lux Test O2 Delivery Device Oxygen Flow Rate L Sodium 142 (140-148) mmol/L Potassium 5.0 (3.6-5.2) mmol/L Chloride 102 (100-108) mmol/L Carbon Dioxide 25 (21-32) mmol/L Anion Gap 15.0 H (5.0-14.0) mmol/L BUN 47 H D (7-18) mg/dL Creatinine 2.9 H D (0.8-1.3) mg/dL Est Cr Clr Drug Dosing TNP Estimated GFR (MDRD) 21 L (>60) Glucose 62 L (74-106) mg/dL Lactic Acid 8.4 H (0.4-2.0) mmol/L Calcium 8.3 L (8.5-10.1) mg/dL Phosphorus 8.4 H (2.5-4.9) mg/dL Magnesium 2.7 H (1.8-2.4) mg/dL Total Bilirubin 0.5 D (0.2-1.0) mg/dL AST 39 H (15-37) U/L ALT 33 D (12-78) U/L Alkaline Phosphatase 83 (46-116) U/L Ammonia (11-32) mmol/L Creatine Kinase (39-308) U/L Troponin I < 0.017 (0.000-0.056) ng/mL C-Reactive Protein (0.0-0.3) mg/dL Total Protein 5.7 L (6.4-8.2) g/dL Albumin 1.7 L (3.4-5.0) g/dL Globulin 4.0 H (2.3-3.5) g/dL Albumin/Globulin Ratio 0.4 L (1.2-2.2) Urine Color Urine Appearance Urine pH (4.5-8.0) Ur Specific [place] (1.008-1.030) Urine Protein (NEGATIVE) mg/dL Urine Glucose (UA) (NEGATIVE) mg/dL Urine Ketones (NEGATIVE) mg/dL Urine Occult Blood (NEGATIVE) Urine Nitrite (NEGAITVE) Urine Bilirubin (NEGATIVE) Urine Urobilinogen (NORMAL) mg/dL Ur Leukocyte Esterase (NEGATIVE) Urine RBC (0-5) Urine WBC (0-5) Ur Epithelial Cells Amorphous Sediment Urine Bacteria Urine Mucus 08/11/16 08/11/16 08/11/16 Range/Units 12:55 13:29 13:29 WBC (4.5-11.0) K/uL RBC (4.30-5.90) M/uL Hgb (12.0-15.0) g/dL Hct (40.0-54.0) % MCV (80-98) fL MCH (27-31) pg MCHC (32-36) % Plt Count (150-400) K/uL Add Manual Diff Neutrophils % (Manual) (36-66) % Band Neutrophils % (5-11) % Lymphocytes % (Manual) (24-44) % Monocytes % (Manual) (2-6) % Poikilocytosis Target Cells Ovalocytes [place] Cells Puncture Site Lt radial ABG pH 7.317 L (7.350-7.450) ABG pCO2 43.3 H (35.0-42.0) mmHg ABG pO2 115.0 H (75.0-100.0) mmHg ABG HCO3 21.5 L (22.0-26.0) mmol/L ABG Total CO2 20.2 L (23.0-27.0) mmol/L ABG O2 Saturation 97.1 (95.0-98.0) % ABG O2 Content 14.7 L (15.0-23.0) %vol ABG Base Excess -3.9 mm/L ABG Hemoglobin 10.7 L (13.5-18.0) g/dL ABG Oxyhemoglobin 96.0 % ABG Carboxyhemoglobin 0.4 (0.0-1.6) % ABG Methemoglobin 0.7 % Lux Test Pass O2 Delivery Device Non rebr mask Oxygen Flow Rate 15 L Sodium (140-148) mmol/L Potassium (3.6-5.2) mmol/L Chloride (100-108) mmol/L Carbon Dioxide (21-32) mmol/L Anion Gap (5.0-14.0) mmol/L BUN (7-18) mg/dL Creatinine (0.8-1.3) mg/dL Est Cr Clr Drug Dosing Estimated GFR (MDRD) (>60) Glucose (74-106) mg/dL Lactic Acid (0.4-2.0) mmol/L Calcium (8.5-10.1) mg/dL Phosphorus (2.5-4.9) mg/dL Magnesium (1.8-2.4) mg/dL Total Bilirubin (0.2-1.0) mg/dL AST (15-37) U/L ALT (12-78) U/L Alkaline Phosphatase (46-116) U/L Ammonia 29 (11-32) mmol/L Creatine Kinase 130 (39-308) U/L Troponin I (0.000-0.056) ng/mL C-Reactive Protein (0.0-0.3) mg/dL Total Protein (6.4-8.2) g/dL Albumin (3.4-5.0) g/dL Globulin (2.3-3.5) g/dL Albumin/Globulin Ratio (1.2-2.2) Urine Color Urine Appearance Urine pH (4.5-8.0) Ur Specific [place] (1.008-1.030) Urine Protein (NEGATIVE) mg/dL Urine Glucose (UA) (NEGATIVE) mg/dL Urine Ketones (NEGATIVE) mg/dL Urine Occult Blood (NEGATIVE) Urine Nitrite (NEGAITVE) Urine Bilirubin (NEGATIVE) Urine Urobilinogen (NORMAL) mg/dL Ur Leukocyte Esterase (NEGATIVE) Urine RBC (0-5) Urine WBC (0-5) Ur Epithelial Cells Amorphous Sediment Urine Bacteria Urine Mucus 08/11/16 08/11/16 Range/Units 13:42 14:07 WBC (4.5-11.0) K/uL RBC (4.30-5.90) M/uL Hgb (12.0-15.0) g/dL Hct (40.0-54.0) % MCV (80-98) fL MCH (27-31) pg MCHC (32-36) % Plt Count (150-400) K/uL Add Manual Diff Neutrophils % (Manual) (36-66) % Band Neutrophils % (5-11) % Lymphocytes % (Manual) (24-44) % Monocytes % (Manual) (2-6) % Poikilocytosis Target Cells Ovalocytes Jonnie Cells Puncture Site ABG pH (7.350-7.450) ABG pCO2 (35.0-42.0) mmHg ABG pO2 (75.0-100.0) mmHg ABG HCO3 (22.0-26.0) mmol/L ABG Total CO2 (23.0-27.0) mmol/L ABG O2 Saturation (95.0-98.0) % ABG O2 Content (15.0-23.0) %vol ABG Base Excess mm/L ABG Hemoglobin (13.5-18.0) g/dL ABG Oxyhemoglobin % ABG Carboxyhemoglobin (0.0-1.6) % ABG Methemoglobin % Lux Test O2 Delivery Device Oxygen Flow Rate L Sodium (140-148) mmol/L Potassium (3.6-5.2) mmol/L Chloride (100-108) mmol/L Carbon Dioxide (21-32) mmol/L Anion Gap (5.0-14.0) mmol/L BUN (7-18) mg/dL Creatinine (0.8-1.3) mg/dL Est Cr Clr Drug Dosing Estimated GFR (MDRD) (>60) Glucose (74-106) mg/dL Lactic Acid (0.4-2.0) mmol/L Calcium (8.5-10.1) mg/dL Phosphorus (2.5-4.9) mg/dL Magnesium (1.8-2.4) mg/dL Total Bilirubin (0.2-1.0) mg/dL AST (15-37) U/L ALT (12-78) U/L Alkaline Phosphatase (46-116) U/L Ammonia (11-32) mmol/L Creatine Kinase (39-308) U/L Troponin I (0.000-0.056) ng/mL C-Reactive Protein 31.36 H (0.0-0.3) mg/dL Total Protein (6.4-8.2) g/dL Albumin (3.4-5.0) g/dL Globulin (2.3-3.5) g/dL Albumin/Globulin Ratio (1.2-2.2) Urine Color [place] Urine Appearance Cloudy Urine pH 5.0 (4.5-8.0) Ur Specific [place] 1.015 (1.008-1.030) Urine Protein Negative (NEGATIVE) mg/dL Urine Glucose (UA) Normal (NEGATIVE) mg/dL Urine Ketones 15 H (NEGATIVE) mg/dL Urine Occult Blood Negative (NEGATIVE) Urine Nitrite Negative (NEGAITVE) Urine Bilirubin Small (NEGATIVE) Urine Urobilinogen Normal (NORMAL) mg/dL Ur Leukocyte Esterase Negative (NEGATIVE) Urine RBC 0-5 (0-5) Urine WBC 5-10 H (0-5) Ur Epithelial Cells Few Amorphous Sediment Numerous Urine Bacteria Few Urine Mucus Few Result Diagrams: 08/12/16 05:10 08/12/16 03:44 *Q Meaningful Use (ADM) - VTE *Q VTE Criteria *Q: - Stroke *Q Stroke Criteria *Q: - AMI *Q AMI Criteria *Q: Problem List Initiated/Reviewed/Updated: Yes Orders Last 24hrs: Active Orders 24 hr Category Date Time Status Patient Status [ADT] Routine ADT 08/11/16 14:36 Ordered EKG Documentation Completion [RC] ASDIRECTED Care 08/11/16 12:49 Active Height and Weight [RC] DAILY Care 08/11/16 14:27 Ordered Intake and Output [RC] QSHIFT Care 08/11/16 14:38 Ordered Oxygen Therapy [RC] PRN Care 08/11/16 14:36 Ordered Peripheral IV Care [RC] . DIRECTED Care 08/11/16 12:49 Active Pulse Oximetry [RC] CONTINUOUS Care 08/11/16 14:38 Ordered VTE/DVT Education [RC] Per Unit Routine Care 08/11/16 14:36 Ordered Vital Signs [RC] Q4H Care 08/11/16 14:36 Ordered Abdomen Pelvis wo Cont [CT] Stat Exams 08/11/16 13:36 Taken Chest 1V Frontal [CR] Urgent Exams 08/11/16 12:48 Taken CULTURE BLOOD [BC] Urgent Lab 08/11/16 14:00 Received CULTURE BLOOD [BC] Urgent Lab 08/11/16 14:10 Received Lactated Ringers [Ringers, Lactated] 1,000 ml Med 08/11/16 14:00 Active IV ASDIRECTED Lactated Ringers [Ringers, Lactated] 1,000 ml Med 08/11/16 14:00 Active IV BOLUS Norepinephrine [Levophed] 4 mg Med 08/11/16 13:30 Active Dextrose 5% in Water 246 ml IV TITRATE Piperacillin/Tazobactam [Zosyn] 4.5 gm Med 08/11/16 22:00 Active Sodium Chloride 0.9% [Normal Saline] 100 ml IV Q6H Sodium Chloride 0.9% @ 125 MLS/HR (1000ml) Med 08/11/16 14:30 Ordered Sodium Chloride 0.9% [Normal Saline] 1,000 ml IV ASDIRECTED Sodium Chloride 0.9% [Saline Flush] Med 08/11/16 12:48 Active 10 ml FLUSH ASDIRECTED PRN Sodium Chloride 0.9% [Saline Flush] Med 08/11/16 12:48 Active 10 ml FLUSH ASDIRECTED PRN Blood Culture x2 Reflex Set [OM.PC] Urgent Oth 08/11/16 13:42 Ordered Peripheral IV Insertion Adult [OM.PC] Stat Oth 08/11/16 12:48 Ordered Sequential Compression Device [OM.PC] Per Unit Routine Oth 08/11/16 14:38 Ordered Resuscitation Status Routine Resus Stat 08/11/16 14:27 Ordered EKG 12 Lead [EK] Urgent Ther 08/11/16 12:48 Ordered Medication Orders Norepinephrine Bitartrate 4 mg (/ Dextrose/Water) 250 mls @ 7.5 mls/hr IV TITRATE RONN; 2 MCG/MIN PRN Reason: Protocol Last Admin: 08/11/16 14:41 Dose: 2 mcg/min, 7.5 mls/hr Lactated Ringer's (Ringers, Lactated) 1,000 mls @ 125 mls/hr IV ASDIRECTED RONN Last Admin: 08/11/16 14:40 Dose: 125 mls/hr Lactated Ringer's (Ringers, Lactated) 1,000 mls @ 999 mls/hr IV BOLUS RONN Last Admin: 08/11/16 14:40 Dose: 999 mls/hr Sodium Chloride (Normal Saline) 1,000 mls @ 125 mls/hr IV ASDIRECTED RONN Piperacillin Sod/Tazobactam (Sod 4.5 gm/ Sodium Chloride) 100 mls @ 200 mls/hr IV Q6H RONN Sodium Chloride (Saline Flush) 10 ml FLUSH ASDIRECTED PRN PRN Reason: Keep Vein Open Last Admin: 08/11/16 14:39 Dose: 10 ml Sodium Chloride (Saline Flush) 10 ml FLUSH ASDIRECTED PRN PRN Reason: Keep Vein Open Last Admin: 08/11/16 14:39 Dose: 10 ml Assessment/Plan Comment:: Assessment/Plan: #1. Septicemia. Will admit the the ICU. start antibiotics to cover gram + and Gram- bugs. #2. Hypotension. Cover with fluids and Levofed. #3. Acute renal failure. Will monitor meds and fluids closely. #4. Cancer of the colon. Path report pending. #5. ASHD stable. Not a concern presently.
[2016-08-11] MEDS: Aztreonam/Dextrose-Water 1 GM in Premix Bag 1 BAG IV SCH (16:11)
[2016-08-11] MEDS ORDERED: Acetaminophen 325 MG Tab PO PRN (19:02)
[2016-08-11] MEDS ORDERED: Albuterol/Ipratropium 3.0-0.5 MG/3 ML Neb Soln NEB PRN (21:30)
[2016-08-11] MEDS ORDERED: Furosemide 20 MG/2 ML VIAL IVPUSH ONE (21:31)
[2016-08-11] MEDS: Sodium Chloride 0.9% 1,000 ML IV SCH (21:53)
[2016-08-11] MEDS: Piperacillin/Tazobactam 4.5 GM in Sodium Chloride 0.9% 100 ML IV SCH (22:08)
[2016-08-11] MEDS ORDERED: methylPREDNISolone Sodium Succinate 125 MG/2 ML SDV IVPUSH ONE (23:50)
[2016-08-11] MEDS ORDERED: methylPREDNISolone Sodium Succinate 125 MG/2 ML SDV ONE (23:58)
[2016-08-12] MEDS: Aztreonam/Dextrose-Water 1 GM in Premix Bag 1 BAG IV SCH ×3 (00:01→15:52)
[2016-08-12] MEDS: Piperacillin/Tazobactam 4.5 GM in Sodium Chloride 0.9% 100 ML IV SCH (05:31)
--- NOTE | 2016-08-12 08:54 | CR ---
Chest 1V Frontal HISTORY: Obtunded COMPARISON: 07/31/2016 FINDINGS: Possible perihilar infiltrates on the right. There appears to mild atelectasis versus infi ltrate retrocardiac region left lower lobe. Upper chest is clear. Heart size is felt to be within no rmal limits for the AP technique. Atherosclerotic aorta is redemonstrated. No vascular redistributio n or pleural fluid is seen. Anterolateral osteophytes can be seen along the thoracic spine. IMPRESSION: Possible mild perihilar infiltrates on the right. Possible atelectasis versus infiltrate left lower lobe.
[2016-08-12] MEDS ORDERED: Sodium Chloride 0.9% 500 ML IV ONE ×2 (08:58→16:15)
[2016-08-12] MEDS: Sodium Chloride 0.9% 1,000 ML IV SCH (11:59)
[2016-08-12] MEDS ORDERED: Sodium Chloride 0.9% 1,000 ML IV SCH (12:15)
[2016-08-12] MEDS: Piperacillin/Tazobactam/Dext 3.375 GM in Premix Bag 1 BAG IV SCH ×2 (13:57→20:05)
[2016-08-12] MEDS ORDERED: methylPREDNISolone Sodium Succinate 125 MG/2 ML SDV IVPUSH ONE (17:30)
--- NOTE | 2016-08-12 17:51 | PCM.PN ---
- General Info Date of Service: 08/12/16 Functional Status: Reports: pain controlled - Review of Systems General: Reports: Weakness (In the morning and was responsive this afternoon unresponsive to verbal commands.) - Patient Data Vitals - most recent: Last Vital Signs Temp 100.2 F 08/12/16 16:00 Pulse 115 H 08/12/16 17:00 Resp 34 H 08/12/16 17:00 BP 89/54 L 08/12/16 17:00 Pulse Ox 96 08/12/16 17:00 Weight - most recent: 176 lb 5.917 oz I&O - last 24 hours: Intake & Output 08/12/16 08/12/16 08/12/16 06:59 14:59 22:59 Intake Total 7700 689 2960 Output Total 30 160 20 Balance 2543 431 5119 Lab Results last 24 hrs: Laboratory Results - last 24 hr 08/12/16 08/12/16 08/12/16 Range/Units 03:44 04:40 05:10 WBC 14.0 H (4.5-11.0) K/uL RBC 4.90 (4.30-5.90) M/uL Hgb 11.8 L (12.0-15.0) g/dL Hct 35.1 L (40.0-54.0) % MCV 72 L (80-98) fL MCH 24 L (27-31) pg MCHC 34 (32-36) % Plt Count 380 (150-400) K/uL Add Manual Diff Yes Neutrophils % (Manual) 65 (36-66) % Band Neutrophils % 13 H (5-11) % Lymphocytes % (Manual) 11 L (24-44) % Monocytes % (Manual) 11 H (2-6) % Anisocytosis Marked H Target Cells Moderate H Ovalocytes Moderate H Sodium 138 L (140-148) mmol/L Potassium 5.8 H (3.6-5.2) mmol/L Chloride 101 (100-108) mmol/L Carbon Dioxide 20 L (21-32) mmol/L Anion Gap 22.8 H (5.0-14.0) mmol/L BUN 54 H (7-18) mg/dL Creatinine 2.8 H (0.8-1.3) mg/dL Est Cr Clr Drug Dosing 21.36 mL/min Estimated GFR (MDRD) 22 L (>60) Glucose 59 L (74-106) mg/dL Lactic Acid 6.2 H (0.4-2.0) mmol/L Calcium 7.7 L (8.5-10.1) mg/dL Total Bilirubin 0.6 (0.2-1.0) mg/dL AST 48 H (15-37) U/L ALT 29 (12-78) U/L Alkaline Phosphatase 71 (46-116) U/L Total Protein 5.6 L (6.4-8.2) g/dL Albumin 1.5 L (3.4-5.0) g/dL Globulin 4.1 H (2.3-3.5) g/dL Albumin/Globulin Ratio 0.4 L (1.2-2.2) Med Orders - Current: Current Medications Acetaminophen (Tylenol) 650 mg PO Q4H PRN PRN Reason: Abdominal Pain Last Admin: 08/11/16 19:26 Dose: 650 mg Albuterol/Ipratropium (Duoneb 3.0-0.5 Mg/3 Ml) 3 ml NEB Q4H PRN PRN Reason: Shortness of Breath Last Admin: 08/11/16 21:47 Dose: 3 ml Aztreonam/Dextrose 1 gm/ (Premix) 50 mls @ 100 mls/hr IV Q8H RONN Last Admin: 08/12/16 15:52 Dose: 100 mls/hr Norepinephrine Bitartrate 4 mg (/ Dextrose/Water) 254 mls @ 7.62 mls/hr IV TITRATE RONN; 2 MCG/MIN PRN Reason: Protocol Last Admin: 08/12/16 14:35 Dose: 20 mcg/min, 76.2 mls/hr Piperacillin/Tazobactam/ (Dextrose 3.375 gm/ Premix) 50 mls @ 100 mls/hr IV Q6H RONN Last Admin: 08/12/16 13:57 Dose: 100 mls/hr Sodium Chloride (Normal Saline) 1,000 mls @ 75 mls/hr IV ASDIRECTED RONN Sodium Chloride (Saline Flush) 10 ml FLUSH ASDIRECTED PRN PRN Reason: Keep Vein Open Sodium Chloride (Saline Flush) 10 ml FLUSH ASDIRECTED PRN PRN Reason: Keep Vein Open Discontinued Medications Furosemide (Lasix) 10 mg IVPUSH ONETIME ONE Stop: 08/11/16 21:32 Last Admin: 08/11/16 21:45 Dose: 10 mg Norepinephrine Bitartrate 4 mg (/ Dextrose/Water) 250 mls @ 7.5 mls/hr IV TITRATE RONN; 2 MCG/MIN PRN Reason: Protocol Last Admin: 08/11/16 14:41 Dose: 2 mcg/min, 7.5 mls/hr Piperacillin Sod/Tazobactam (Sod 4.5 gm/ Sodium Chloride) 100 mls @ 200 mls/hr IV Q6H RONN Last Admin: 08/11/16 14:47 Dose: 200 mls/hr Lactated Ringer's (Ringers, Lactated) 1,000 mls @ 125 mls/hr IV ASDIRECTED RONN Last Admin: 08/11/16 14:40 Dose: 125 mls/hr Lactated Ringer's (Ringers, Lactated) 1,000 mls @ 999 mls/hr IV BOLUS RONN Last Admin: 08/11/16 14:40 Dose: 999 mls/hr Sodium Chloride (Normal Saline) 1,000 mls @ 125 mls/hr IV ASDIRECTED RONN Piperacillin Sod/Tazobactam (Sod 4.5 gm/ Sodium Chloride) 100 mls @ 200 mls/hr IV Q6H RONN Piperacillin Sod/Tazobactam (Sod 4.5 gm/ Sodium Chloride) 100 mls @ 200 mls/hr IV Q8H RONN Last Admin: 08/12/16 05:31 Dose: 200 mls/hr Sodium Chloride (Normal Saline) 1,000 mls @ 250 mls/hr IV ASDIRECTED RONN Stop: 08/11/16 21:59 Last Admin: 08/11/16 18:12 Dose: 250 mls/hr Sodium Chloride (Normal Saline) 1,000 mls @ 125 mls/hr IV ASDIRECTED RONN Sodium Chloride (Normal Saline) 1,000 mls @ 75 mls/hr IV ASDIRECTED RONN Last Admin: 08/12/16 11:59 Dose: 75 mls/hr Sodium Chloride (Normal Saline) 500 mls @ 500 mls/hr IV .BOLUS ONE Stop: 08/12/16 09:57 Last Admin: 08/12/16 09:05 Dose: 500 mls/hr Sodium Chloride (Normal Saline) 500 mls @ 500 mls/hr IV .BOLUS ONE Stop: 08/12/16 17:14 Last Admin: 08/12/16 16:15 Dose: 500 mls/hr Methylprednisolone Sodium Succinate (Solu-Medrol) 80 mg IVPUSH ONETIME ONE Stop: 08/11/16 23:51 Last Admin: 08/12/16 00:04 Dose: 80 mg Methylprednisolone Sodium Succinate (Solu-Medrol) Confirm Administered Dose 125 mg .ROUTE .STK-MED ONE Stop: 08/11/16 23:59 Last Admin: 08/12/16 00:22 Dose: Not Given Methylprednisolone Sodium Succinate (Solu-Medrol) 80 mg IVPUSH ONETIME ONE Stop: 08/12/16 17:31 Last Admin: 08/12/16 17:27 Dose: 80 mg Naloxone HCl (Narcan) Confirm Administered Dose 0.4 mg .ROUTE .STK-MED ONE Stop: 08/11/16 12:58 Last Admin: 08/11/16 15:22 Dose: Not Given Naloxone HCl (Narcan) Confirm Administered Dose 0.4 mg .ROUTE .STK-MED ONE Stop: 08/11/16 13:03 Last Admin: 08/11/16 14:36 Dose: Not Given Naloxone HCl (Narcan) 0.4 mg IVPUSH ONETIME PRN PRN Reason: Oversedation Stop: 08/11/16 14:38 Last Admin: 08/11/16 14:49 Dose: 0.4 mg Sodium Chloride (Saline Flush) 10 ml FLUSH ASDIRECTED PRN PRN Reason: Keep Vein Open Last Admin: 08/11/16 14:39 Dose: 10 ml Sodium Chloride (Saline Flush) 10 ml FLUSH ASDIRECTED PRN PRN Reason: Keep Vein Open Last Admin: 08/11/16 14:39 Dose: 10 ml - Exam General: obtunded HEENT: Pupils equal, Pupils reactive, EOMI, Mucous membr. moist/pink Neck: supple Lungs: Clear to auscultation, Normal respiratory effort Cardiovascular: Irregular Rhythm. No: Regular Rhythm ( overall really) Abdomen: soft, tenderness, other (No bowel sounds). No: no distension ( Radiculitis) Extremities: no edema Peripheral Pulses: 1+: Radial (L), Radial (R) Skin: warm, intact, moist Psy/Mental Status: other (unresponsive to verbal command) - Problem List Review Problem List Initiated/Reviewed/Updated: Yes - My Orders Last 24 Hours: My Active Orders 08/11/16 19:02 Acetaminophen [Tylenol] 650 mg PO Q4H PRN SCD [Sequential Compression Device] [OM.PC] Routine 08/11/16 21:30 Albuterol/Ipratropium [DuoNeb 3.0-0.5 MG/3 ML] 3 ml NEB Q4H PRN 08/11/16 21:31 RT Aerosol Therapy [RC] ASDIRECTED 08/12/16 12:13 EKG 12 Lead [EK] Routine 08/12/16 12:15 Sodium Chloride 0.9% [Normal Saline] 1,000 ml IV ASDIRECTED 08/12/16 14:00 Piperacillin/Tazobactam/Dext [Zosyn in Dextrose Iso-Osmotic 3.375 GM] 3.375 gm Premix Bag 1 bag IV Q6H 08/12/16 17:02 Resuscitation Status Routine - Plan Plan:: Assessment/Plan: #1. Septicemia. His blood pressure is low and nonresponsive at present time. The white count is not increased. #2. Hypotension. Cover with fluids and Levofed. We'll continue to give increase fluid as I feel is not overloaded #3. Acute renal failure. Will monitor meds and fluids closely. #4. Cancer of the colon. 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 ASHD stable. Not a concern presently. His overall prognosis is very poor. We will continue to give her extra fluid and continue with antibiotics.
[2016-08-13 01:14] VITALS: BP 132/68
--- NOTE | 2016-08-13 18:09 | PCM.DCSUM1 ---
Discharge Summary - Hospital Course HPI Initial Comments: He had surgery one week before and was sent to the [facility]. He was brought back in a semi-comatose condition and admitted to the hospital. He had hypotension and espected sepsis and treated with zosyn and azactam. Medicine was given to support his blood pressure and a lot of iv fluids. Kidney functions were poor. Medrol was given. He made no improvement while in the hospital and . - Discharge Data Discharge Date: 08/13/16 Discharge Disposition: 20 Condition: - Patient Summary/Data Hospital Course: He never responded to the meds given and remained hypotensive throughout his hospital stay. 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 Cause of sepsis with septicemia. - Discharge Plan Home Medications: Home Meds Diclofenac Sodium [Voltaren] 75 mg PO BID 10/15/13 [History] Furosemide 10 mg PO DAILY 10/15/13 [History] Gabapentin 800 mg PO BID 10/15/13 [History] Gluc 2KCl/Chondr/Juan R Hy/Hy Ac [Glucosamine & Chondroitin Cap] 1 tab PO BID [History] Simvastatin [Zocor] 40 mg PO BEDTIME 10/15/13 [History] Aspirin [Adult Low Dose Aspirin EC] 81 mg PO DAILY 01/05/16 [History] Magnesium Oxide [Magnesium] 400 mg PO BID 01/05/16 [History] Melatonin 10 mg PO BEDTIME 01/05/16 [History] Multivitamin [Multivitamins] 1 tab PO DAILY 01/05/16 [History] Tamsulosin HCl [Flomax] 0.4 mg PO DAILY 01/05/16 [History] Zinc 50 mg PO DAILY 01/05/16 [History] traZODone HCl [Trazodone HCl] 50 mg PO BEDTIME 01/05/16 [History] Pantoprazole [ProTONIX] 40 mg PO BIDAC 04/17/16 [History] Forms: ED Department Discharge Referrals: Cesar Delcid Sr, MD [Primary Care Provider] - - Patient Data Vitals - Most Recent: Last Vital Signs Temp 100.2 F 08/12/16 23:00 Pulse 115 H 08/12/16 23:00 Resp 39 H 08/12/16 23:00 BP 132/68 08/12/16 23:00 Pulse Ox 94 L 08/12/16 23:00 Weight - Most Recent: 176 lb 5.917 oz Med Orders - Current: Current Medications Discontinued Medications Acetaminophen (Tylenol) 650 mg PO Q4H PRN PRN Reason: Abdominal Pain Last Admin: 08/11/16 19:26 Dose: 650 mg Albuterol/Ipratropium (Duoneb 3.0-0.5 Mg/3 Ml) 3 ml NEB Q4H PRN PRN Reason: Shortness of Breath Last Admin: 08/11/16 21:47 Dose: 3 ml Furosemide (Lasix) 10 mg IVPUSH ONETIME ONE Stop: 08/11/16 21:32 Last Admin: 08/11/16 21:45 Dose: 10 mg Norepinephrine Bitartrate 4 mg (/ Dextrose/Water) 250 mls @ 7.5 mls/hr IV TITRATE RONN; 2 MCG/MIN PRN Reason: Protocol Last Admin: 08/11/16 14:41 Dose: 2 mcg/min, 7.5 mls/hr Piperacillin Sod/Tazobactam (Sod 4.5 gm/ Sodium Chloride) 100 mls @ 200 mls/hr IV Q6H RONN Last Admin: 08/11/16 14:47 Dose: 200 mls/hr Lactated Ringer's (Ringers, Lactated) 1,000 mls @ 125 mls/hr IV ASDIRECTED RONN Last Admin: 08/11/16 14:40 Dose: 125 mls/hr Lactated Ringer's (Ringers, Lactated) 1,000 mls @ 999 mls/hr IV BOLUS RONN Last Admin: 08/11/16 14:40 Dose: 999 mls/hr Sodium Chloride (Normal Saline) 1,000 mls @ 125 mls/hr IV ASDIRECTED RONN Piperacillin Sod/Tazobactam (Sod 4.5 gm/ Sodium Chloride) 100 mls @ 200 mls/hr IV Q6H RONN Aztreonam/Dextrose 1 gm/ (Premix) 50 mls @ 100 mls/hr IV Q8H RONN Last Admin: 08/12/16 15:52 Dose: 100 mls/hr Norepinephrine Bitartrate 4 mg (/ Dextrose/Water) 254 mls @ 7.62 mls/hr IV TITRATE RONN; 2 MCG/MIN PRN Reason: Protocol Last Admin: 08/12/16 21:01 Dose: 20 mcg/min, 76.2 mls/hr Piperacillin Sod/Tazobactam (Sod 4.5 gm/ Sodium Chloride) 100 mls @ 200 mls/hr IV Q8H [facility] Last Admin: 08/12/16 05:31 Dose: 200 mls/hr Sodium Chloride (Normal Saline) 1,000 mls @ 250 mls/hr IV ASDIRECTED RONN Stop: 08/11/16 21:59 Last Admin: 08/11/16 18:12 Dose: 250 mls/hr Sodium Chloride (Normal Saline) 1,000 mls @ 125 mls/hr IV ASDIRECTED RONN Sodium Chloride (Normal Saline) 1,000 mls @ 75 mls/hr IV ASDIRECTED RONN Last Admin: 08/12/16 11:59 Dose: 75 mls/hr Piperacillin/Tazobactam/ (Dextrose 3.375 gm/ Premix) 50 mls @ 100 mls/hr IV Q6H [facility] Last Admin: 08/12/16 20:05 Dose: 100 mls/hr Sodium Chloride (Normal Saline) 500 mls @ 500 mls/hr IV .BOLUS ONE Stop: 08/12/16 09:57 Last Admin: 08/12/16 09:05 Dose: 500 mls/hr Sodium Chloride (Normal Saline) 1,000 mls @ 75 mls/hr IV ASDIRECTED RONN Sodium Chloride (Normal Saline) 500 mls @ 500 mls/hr IV .BOLUS ONE Stop: 08/12/16 17:14 Last Admin: 08/12/16 16:15 Dose: 500 mls/hr Methylprednisolone Sodium Succinate (Solu-Medrol) 80 mg IVPUSH ONETIME ONE Stop: 08/11/16 23:51 Last Admin: 08/12/16 00:04 Dose: 80 mg Methylprednisolone Sodium Succinate (Solu-Medrol) Confirm Administered Dose 125 mg .ROUTE .STK-MED ONE Stop: 08/11/16 23:59 Last Admin: 08/12/16 00:22 Dose: Not Given Methylprednisolone Sodium Succinate (Solu-Medrol) 80 mg IVPUSH ONETIME ONE Stop: 08/12/16 17:31 Last Admin: 08/12/16 17:27 Dose: 80 mg Naloxone HCl (Narcan) Confirm Administered Dose 0.4 mg .ROUTE .STK-MED ONE Stop: 08/11/16 12:58 Last Admin: 08/11/16 15:22 Dose: Not Given Naloxone HCl (Narcan) Confirm Administered Dose 0.4 mg .ROUTE .STK-MED ONE Stop: 08/11/16 13:03 Last Admin: 08/11/16 14:36 Dose: Not Given Naloxone HCl (Narcan) 0.4 mg IVPUSH ONETIME PRN PRN Reason: Oversedation Stop: 08/11/16 14:38 Last Admin: 08/11/16 14:49 Dose: 0.4 mg Sodium Chloride (Saline Flush) 10 ml FLUSH ASDIRECTED PRN PRN Reason: Keep Vein Open Last Admin: 08/11/16 14:39 Dose: 10 ml Sodium Chloride (Saline Flush) 10 ml FLUSH ASDIRECTED PRN PRN Reason: Keep Vein Open Last Admin: 08/11/16 14:39 Dose: 10 ml Sodium Chloride (Saline Flush) 10 ml FLUSH ASDIRECTED PRN PRN Reason: Keep Vein Open Sodium Chloride (Saline Flush) 10 ml FLUSH ASDIRECTED PRN PRN Reason: Keep Vein Open *Q Meaningful Use (DIS) - VTE *Q VTE Criteria *Q: - Stroke *Q Stroke Criteria *Q: - AMI *Q AMI Criteria *Q:
== END 2016-08-12 23:41 | disposition expired | DRG 871 ==
LOC: JP.ED 12:16 → JP.ICU 14:39 → UNDOADMIN 15:02 → JP.ICU 15:02 → UNDODISIN 08-12 23:41
PROVIDERS: ADMIT Internal Medicine; ATTEND Internal Medicine
DX: A41.9 Sepsis, unspecified organism (principal); J18.9 Pneumonia, unspecified organism; C18.9 Malignant neoplasm of colon, unspecified; N17.9 Acute kidney failure, unspecified; C77.9 Secondary and unspecified malignant neoplasm of lymph node, unspecified; I50.9 Heart failure, unspecified; I11.0 Hypertensive heart disease with heart failure; Z66 Do not resuscitate; I25.10 Atherosclerotic heart disease of native coronary artery without angina pectoris; I95.9 Hypotension, unspecified; Z98.890 Other specified postprocedural states; M19.90 Unspecified osteoarthritis, unspecified site; N40.0 Benign prostatic hyperplasia without lower urinary tract symptoms; H54.7 Unspecified visual loss; H91.90 Unspecified hearing loss, unspecified ear; Z79.82 Long term (current) use of aspirin; G60.9 Hereditary and idiopathic neuropathy, unspecified; R65.20 Severe sepsis without septic shock
CPT/HCPCS: 36415; 36600; 71010 ×2; 74176; 80053; 81001; 82140; 82550; 82803; 83605; 83735; 84100; 84484; 85025; 86140; 87040 ×2; 93005; 96365; 96375; 99285; J2310 ×2; J2543; J7030; J7050 ×2; J7120 ×2; 87077; 87186; 93010; A9270-GY; J1940; J2930; J3490; J7040; J7060; J7620